=== PATIENT | female | born 1975 | race Caucasian/White ===

== ENCOUNTER 2018-08-17 07:27 | Observation (INO) | payer BC ==
[~2018-08-17] VITALS: Ht 170.2 cm; Wt 97.1 kg
[~2018-08-17 07:27] MED LIST: ADDERALL 20 MG20 MG PO; BENADRYL25 M1; BETAMETHASONE; HYDROXYZINE HCL25 MG PO; METHYLPREDNISOLO4 M1
[2018-08-17] MEDS ORDERED: KETOROLAC TROMETHAMINE 30 MG/ML VIAL IV STA (07:54)
[2018-08-17 08:11] LABS: NITRITE,URINE POSITIVE (NEGATIVE); PREGNANCY TEST, URINE NEGATIVE (NEGATIVE)
[2018-08-17 08:12] LABS: BASOPHILS % 0.4 % (0.0-1.0); EOSINOPHILS # (AUTO) 0.1 (0.0-0.4); EOSINOPHILS % 1.2 % (0.0-6.0); HEMATOCRIT 37.4 % (34.2-44.1); HEMOGLOBIN 12.5 g/dL (12.0-16.0); LYMPHOCYTES # (AUTO) 2.9 (1.0-3.2); MEAN CORPUSCULAR HEMOGLOBIN 29.1 pg (28-32); MEAN CORPUSCULAR HGB CONC 33.4 g/dL (31-35); MONOCYTES # (AUTO) 0.4 (0.2-0.8); MONOCYTES % 5.5 % (4.4-11.3); NEUTROPHILS # (AUTO) 3.5 (2.1-6.9); NEUTROPHILS % 50.6 % (38.7-80.0); PLATELET COUNT 384 x10e3/uL (140-360); RED CELL DISTRIBUTION WIDTH 13.7 % (11.7-14.4)
[2018-08-17 08:12] LABS: BILIRUBIN,URINE NEGATIVE (NEGATIVE); CLARITY,URINE CLOUDY (CLEAR); COLOR,URINE YELLOW (YELLOW); KETONES,URINE NEGATIVE (NEGATIVE); LEUKOCYTE ESTERASE ,URINE NEGATIVE (NEGATIVE); PROTEIN,URINE DIPSTICK NEGATIVE (NEGATIVE); URINE UROBILINOGEN 0.2 mg/dL (0.2 - 1)
[2018-08-17] MEDS ORDERED: MORPHINE SULFATE 2 MG/ML SYR IV STA (08:20)
[2018-08-17 08:28] LABS: ALANINE AMINOTRANSFERASE 11 IU/L (0-55); ALBUMIN 3.9 g/dL (3.5-5.0); ALKALINE PHOSPHATASE 63 IU/L (40-150); ANION GAP 14.7 mmol/L (8-16); BLOOD UREA NITROGEN 16 mg/dL (7-26); BUN/CREATININE RATIO 18 (6-25); CALCIUM 9.6 mg/dL (8.4-10.2); CARBON DIOXIDE 24 mmol/L (22-29); CHLORIDE 105 mmol/L (98-107); CREATININE, SERUM 0.91 mg/dL (0.57-1.11); EST GLOMERULAR FILTRATION RATE > 60 ML/MIN (60-); GLUCOSE 92 mg/dL (74-118); POTASSIUM 3.7 mmol/L (3.5-5.1); SODIUM 140 mmol/L (136-145)
--- NOTE | 2018-08-17 08:28 | Diagnostic Imaging Report ---
PROCEDURE: CHEST SINGLE (PORTABLE) COMPARISON: None. INDICATIONS: RIGHT SIDE BACK PAIN FINDINGS: LUNGS: No consolidations or edema. PLEURA: No effusions or pneumothorax. HEART \T\ MEDIASTINUM: The heart is within normal size-limits. BONES \T\ SOFT TISSUES: No acute findings. CONCLUSION: No acute thoracic abnormality. Jesus Hines D.O. Dictated by: Jesus Hines D.O. on 08/17/2018 at 8:35 Electronically approved by: Jesus Hines D.O. on 08/17/2018 at 8:35
[2018-08-17 08:46] LABS: BACTERIA,URINE MODERATE /HPF; RBC,URINE 0-5 /HPF (0-5)
[2018-08-17 08:47] LABS: EPITHELIAL CELLS,URINE MODERATE /LPF; MUCUS,URINE FEW (RARE)
[2018-08-17] MEDS ORDERED: HYDROMORPHONE 1MG/1ML INJ IV STA ×2 (08:57→09:58)
[2018-08-17] MEDS ORDERED: HYDROMORPHONE 2MG/ML 2 MG/ML ML IV NR (09:15)
--- NOTE | 2018-08-17 10:08 | Diagnostic Imaging Report ---
PROCEDURE: CT scan of the chest WITH intravenous contrast, using PE protocol. TECHNIQUE: The chest was scanned utilizing a multidetector helical scanner from the lung apex through the level of the adrenal glands after the IV administration of 74 cc of Isovue 370. Coronal and sagittal multiplanar reformations were obtained. Low-dose parameters were utilized. DLP: 539.54 mGy-cm COMPARISON: None. INDICATIONS: CHEST PAIN FINDINGS: Lines/tubes: None. Lungs and Airways: The lungs and airways are normal with no focal abnormality demonstrated. No evidence of pulmonary emboli. Pleura: The pleural spaces are clear. Heart and mediastinum: The thyroid gland is normal. No significant mediastinal, hilar or axillary lymphadenopathy is seen. The heart and pericardium are within normal limits. Soft tissues: Normal. Abdomen: Limited contrast-enhanced views of the upper abdomen show no abnormality within the visualized liver, spleen, pancreas, or kidneys. The adrenal glands are normal. Bones: The visualized bony thorax is within normal limits. IMPRESSION: Normal chest CT. Jesus Hines D.O. Dictated by: Jesus Hines D.O. on 08/17/2018 at 10:15 Electronically approved by: Jesus Hines D.O. on 08/17/2018 at 10:15
[2018-08-17] MEDS: HYDROMORPHONE 2MG/ML 2 MG/ML ML IV NR ×2 (10:12→10:31)
[2018-08-17] MEDS ORDERED: DIPHENHYDRAMINE HCL INJ 50 MG/ML VIAL ONE (10:25)
[2018-08-17] MEDS ORDERED: HYDROMORPHONE 1MG/1ML INJ IV PRN (10:30)
[2018-08-17] MEDS ORDERED: DIPHENHYDRAMINE HCL INJ 50 MG/ML VIAL IV ONE ×2 (10:30→13:30)
[2018-08-17] MEDS ORDERED: HYDROMORPHONE 2MG/ML 2 MG/ML ML IV PRN (10:30)
[2018-08-17] MEDS: CEFTRIAXONE SOD 1 GM VIAL IV SCH ×2 (10:38→21:44)
[2018-08-17] MEDS ORDERED: ADDERALL 15 MG15 MG PO (10:51)
[2018-08-17] MEDS ORDERED: BIRTH CONTROL (10:52)
[2018-08-17] MEDS ORDERED: SODIUM CHLORIDE 0.9% 50ML 50 ML ONE (11:35)
[2018-08-17] MEDS ORDERED: IOPAMIDOL 370 MG/ML 200 ML INFUS..BTL INJ ONE (11:36)
[2018-08-17 12:24] LABS: CREATINE KINASE MB 0.5 ng/mL (0-5.0)
[2018-08-17] MEDS ORDERED: DIPHENHYDRAMINE HCL INJ 50 MG/ML VIAL IV PRN (12:30)
--- NOTE | 2018-08-17 12:36 | Diagnostic Imaging Report ---
Exams: Cervical and thoracic spine MRIs without IV contrast History: Back pain Comparison studies: None Technique: Cervical spine: Sagittal T1, T2 and IR, axial T2 and axial gradient echo. Thoracic spine: Sagittal, axial coronal T2, sagittal STIR and T1. Intravenous contrast: None Findings: Alignment: Normal cervical lordosis and thoracic kyphosis. Cervicomedullary junction: No abnormalities. Patent foramen magnum. Soft tissues: No T2 hyperintense inflammatory changes. Spinal cord: Normal in size and signal from the foramen magnum to the tip of the conus which terminates at the L1. Vertebrae: No fractures, infection or neoplasm. No marrow edema. Cervical degenerative changes: Loss of STIR disc signal from C2 to C7. C2-C3: Patent canal and foramina. C3-C4: Patent canal and foramina. C4-C5: Mild left uncovertebral arthrosis without significant foraminal stenosis. Patent canal and right foramen. C5-C6: Disc bulge with possible ossified posterior longitudinal ligament indents the thecal sac but does not result in significant canal stenosis. Mild left foraminal stenosis due to uncovertebral arthrosis. C6-C7: Mild canal stenosis due to a disc ossify complex and possible ossified posterior longitudinal ligament. Moderate left foraminal stenosis due to disc osteophyte complex and uncovertebral arthrosis. C7-T1: Patent canal and foramina. Thoracic degenerative changes: No canal stenosis, foraminal stenosis or nerve root impingement. T2-T3: Small right central disc protrusion. T5-T6: Small right central disc protrusion. C6-7: Small left central disc protrusion. Incidental findings: 5 mm T2/T1 hyperintense left thyroid lobe nodule or cyst. Subcentimeter T2 hyperintense left superior pole renal cyst. IMPRESSION: Cervical spine: 1. No cord signal abnormalities. 2. Degenerative changes, greatest at C5-C6 and C6-C7 with mild canal stenosis and moderate left foraminal stenosis at C6-C7. Thoracic spine: 1. No cord signal abnormalities. 2. Few scattered small disc protrusions. 3. No significant canal stenosis. Patent canal and foramina. Signed by: Dr. Jamarcus Remy M.D. on 08/17/2018 12:32 PM
[2018-08-17 12:40] VITALS: BP 136/72
[2018-08-17 13:01] VITALS: BP 136/72
[2018-08-17] MEDS: MORPHINE SULFATE INJ 4 MG/ML INJ IV PRN ×2 (16:26→23:03)
[2018-08-17 16:31] VITALS: BP 125/71
[2018-08-17 18:09] VITALS: BP 125/71
[2018-08-17 20:00] VITALS: BP 127/75
[2018-08-17] MEDS: KETOROLAC TROMETHAMINE 30 MG/ML VIAL IV PRN (20:16)
[2018-08-17] MEDS: METHYLPREDNISOLONE SOD SUCC 125 MG/2ML VIAL IV SCH (21:44)
--- NOTE | 2018-08-17 21:51 | History and Physical ---
CHIEF COMPLAINT: A 43-year-old female with a history of thoracic pain in the right interscapular area. HISTORY OF PRESENTING ILLNESS: This is Ms. Miley Ferrari who is a 43-year-old female with no prior medical history except for attention deficit disorder. Nardil was used and failed until about 3 days prior to admission, the patient started to have pain right subscapular, interscapular, and infrascapular area. Patient's pain was described as 7/10, go into 10/10 intensity today and the patient came in and was admitted for pain control. PAST MEDICAL HISTORY AND SURGICAL HISTORY: Includes , kidney stones, history of meningitis, and history of ADD. SOCIAL HISTORY: No ETOH. No IV drug abuse. No additional history. REVIEW OF SYSTEMS: Negative for chest pain. No shortness of breath except for pain on inspiration. No nausea, vomiting, or diarrhea. No constipation. No rectal bleeding. No hematochezia. No hematemesis. PHYSICAL EXAMINATION GENERAL: Patient is alert and oriented x3, in moderate distress. Pain has been controlled with morphine at this time. HEENT: Normocephalic, atraumatic. Pupils are reactive to light and accommodation. CVS: S1 and S2 normal. Regular rate and rhythm. ABDOMEN: Nontender and nondistended. LUNGS: Clear to auscultation bilaterally. BACK: Normal to inspection. No CVA tenderness. SKIN: Normal. No rashes. Normal skin turgor. EXTREMITIES: Normal range of motion. LABORATORY VALUES: EKG was normal. Chest x-ray was normal. CT of the lung was normal. CBC was normal. Chemistries were normal too. D-dimer is 130. UA was normal. ASSESSMENT 1. Transthoracic pain, probably questionable shingles or paraesthesia secondary to possible viral syndrome. 2. Pleurisy. 3. Spinal stenosis. MRI was done of the patient's C5-C6 that showed moderate amount of spinal stenosis and accounting for the symptoms that were on the left side. We will continue to monitor the patient. Start on some steroids 80 mg q.6 hours for pain control. Morphine has been given. Further recommendation per clinical course. We will continue to monitor the patient and put the patient on some fluids too. Job#: [id number] INGRID
[2018-08-18] VITALS (8 sets, daily range): BP systolic 110–154; BP diastolic 64–78
[2018-08-18] MEDS: KETOROLAC TROMETHAMINE 30 MG/ML VIAL IV PRN ×3 (04:44→17:24)
[2018-08-18] MEDS: METHYLPREDNISOLONE SOD SUCC 125 MG/2ML VIAL IV SCH ×3 (06:02→21:45)
[2018-08-18] MEDS: MORPHINE SULFATE INJ 4 MG/ML INJ IV PRN ×3 (07:01→20:02)
[2018-08-18] MEDS: ONDANSETRON HCL INJ 2 MG/ML VIAL IV PRN ×3 (07:01→20:01)
[2018-08-18] MEDS: GABAPENTIN 300 MG CAP PO SCH ×3 (08:41→21:45)
[2018-08-18] MEDS: CEFTRIAXONE SOD 1 GM VIAL IV SCH ×2 (08:41→21:45)
[2018-08-18] MEDS: HYDROCODONE/APAP 5MG-325MG TAB PO SCH ×2 (12:22→18:40)
--- NOTE | 2018-08-18 15:44 | Diagnostic Imaging Report ---
EXAM: CT Abdomen and Pelvis WITH contrast INDICATION: Pain COMPARISON: None. TECHNIQUE: Abdomen and Pelvis was scanned utilizing a multidetector helical scanner after administration of IV contrast. Coronal and sagittal reformations were obtained. IV CONTRAST: 100 mL Isovue-370 COMPLICATIONS: None RADIATION DOSE: Total DLP:745 mGy*cm Estimated effective dose: (DLP x 0.015 x size factor) mSv CTDIvol has been reviewed. It is below the limits set by the Radiation Protocol Committee (RPC). Appropriate CT dose reduction techniques were utilized. FINDINGS: Abdomen: Lung Bases: No acute findings. Solid Organs: Liver, adrenals, kidneys, spleen, and pancreas unremarkable. Upper GI Tract: Stomach full of ingested material, limiting evaluation. No small bowel obstructive changes. Vascularity: No aortic aneurysm or dissection. Lymph Nodes: No suspicious adenopathy by size criteria. Other: No free fluid or free air. Pelvis: Bladder: Largely decompressed, limiting evaluation. Other: Uterus/adnexa suboptimally evaluated CT. Grossly unremarkable for age. Colon: No acute colonic findings. Appendix not inflamed. Bones: Presumed bone island right femoral head. Otherwise, no acute findings. IMPRESSION: 1. No acute findings within the abdomen or pelvis. Signed by: Dr. Mason Silva MD on 08/18/2018 3:41 PM
[2018-08-18] MEDS ORDERED: SODIUM CHLORIDE 0.9% 50ML 50 ML ONE (17:56)
[2018-08-18] MEDS ORDERED: IOPAMIDOL 370 MG/ML 200 ML INFUS..BTL INJ ONE (17:56)
[2018-08-19] MEDS: HYDROCODONE/APAP 5MG-325MG TAB PO SCH ×2 (00:34→06:12)
[2018-08-19 01:20] VITALS: BP 102/50
[2018-08-19] MEDS: ONDANSETRON HCL INJ 2 MG/ML VIAL IV PRN (03:37)
[2018-08-19] MEDS: MORPHINE SULFATE INJ 4 MG/ML INJ IV PRN ×2 (03:38→09:53)
[2018-08-19 03:40] VITALS: BP 109/62
[2018-08-19] MEDS: METHYLPREDNISOLONE SOD SUCC 125 MG/2ML VIAL IV SCH (06:12)
[2018-08-19 08:24] VITALS: BP 141/75
[2018-08-19 08:25] VITALS: BP 141/75
[2018-08-19] MEDS: KETOROLAC TROMETHAMINE 30 MG/ML VIAL IV PRN (08:35)
[2018-08-19] MEDS: CEFTRIAXONE SOD 1 GM VIAL IV SCH (08:35)
[2018-08-19] MEDS: GABAPENTIN 300 MG CAP PO SCH (08:35)
== END 2018-08-19 10:27 | disposition home or self-care (01) ==
LOC: ER 07:27 → ERHOLD 10:45 → IMCU 12:36
PROVIDERS: ADMIT Family Medicine; ATTEND Family Medicine
DX: M54.6 Pain in thoracic spine (principal); M48.02 Spinal stenosis, cervical region; N39.0 Urinary tract infection, site not specified; F98.8 Other specified behavioral and emotional disorders with onset usually occurring in childhood and adolescence; Z87.442 Personal history of urinary calculi; B96.20 Unspecified Escherichia coli [E. coli] as the cause of diseases classified elsewhere; R07.89 Other chest pain; R10.9 Unspecified abdominal pain
CPT/HCPCS: 36415; 71045; 71260; 72141; 72146; 74177; 80053; 81001; 81025; 82550; 82553; 84484; 85025; 85379; 87086; 87186; 93005; 99284; G0378 ×3; J0696 ×3; J1170; J1200 ×2; J1885 ×3; J2270 ×4; J2405 ×3; J2930 ×3; Q9967 ×2

== ENCOUNTER 2018-08-21 10:21 | Emergency (ER) | payer BC ==
[~2018-08-21] VITALS: Ht 170.2 cm; Wt 97.1 kg
[~2018-08-21 10:21] MED LIST changes: +ADDERALL 15 MG15 MG PO; +BIRTH CONTROL
[2018-08-21] MEDS ORDERED: SODIUM CHLORIDE 0.9% 1000ML 1,000 ML IV STA (10:34)
[2018-08-21] MEDS ORDERED: KETOROLAC TROMETHAMINE 30 MG/ML VIAL IV STA (10:34)
[2018-08-21] MEDS ORDERED: MORPHINE SULFATE INJ 4 MG/ML INJ IV STA (10:34)
[2018-08-21] MEDS ORDERED: ONDANSETRON HCL INJ 2 MG/ML VIAL IV STA (10:34)
[2018-08-21] MEDS ORDERED: LORAZEPAM INJ 2 MG/ML VIAL IV ONE (10:45)
[2018-08-21 11:28] LABS: AMPHETAMINES SCREEN,URINE NEGATIVE (NEGATIVE); BENZODIAZEPINES SCREEN,URINE NEGATIVE (NEGATIVE); PHENCYCLIDINE SCREEN,URINE NEGATIVE (NEGATIVE)
[2018-08-21 11:33] LABS: BILIRUBIN,URINE NEGATIVE (NEGATIVE); CLARITY,URINE CLEAR (CLEAR); COLOR,URINE YELLOW (YELLOW); KETONES,URINE NEGATIVE (NEGATIVE); LEUKOCYTE ESTERASE ,URINE NEGATIVE (NEGATIVE); NITRITE,URINE NEGATIVE (NEGATIVE); PROTEIN,URINE DIPSTICK NEGATIVE (NEGATIVE); URINE UROBILINOGEN 0.2 mg/dL (0.2 - 1)
[2018-08-21 11:39] LABS: EPITHELIAL CELLS,URINE MODERATE /LPF
[2018-08-21 11:58] LABS: BASOPHILS % 0.4 % (0.0-1.0); EOSINOPHILS % 0.1 % (0.0-6.0); HEMATOCRIT 37.9 % (34.2-44.1); LYMPHOCYTES # (AUTO) 4.1 (1.0-3.2); LYMPHOCYTES % 37.6 % (18.0-39.1); MEAN CORPUSCULAR HEMOGLOBIN 30.1 pg (28-32); MEAN CORPUSCULAR HGB CONC 34.3 g/dL (31-35); MEAN CORPUSCULAR VOLUME 87.7 fL (81-99); MONOCYTES # (AUTO) 0.7 (0.2-0.8); MONOCYTES % 6.9 % (4.4-11.3); NEUTROPHILS # (AUTO) 5.8 (2.1-6.9); NEUTROPHILS % 53.4 % (38.7-80.0); PLATELET COUNT 324 x10e3/uL (140-360); RED BLOOD COUNT 4.32 x10e6/uL (3.6-5.1); RED CELL DISTRIBUTION WIDTH 14.1 % (11.7-14.4)
[2018-08-21 13:45] LABS: ALANINE AMINOTRANSFERASE 18 IU/L (0-55); ALBUMIN/GLOBULIN RATIO 1.2 (0.8-2.0); ALKALINE PHOSPHATASE 29 IU/L (40-150); ANION GAP 9.5 mmol/L (8-16); BLOOD UREA NITROGEN 11 mg/dL (7-26); BUN/CREATININE RATIO 22 (6-25); CARBON DIOXIDE 15 mmol/L (22-29); CHLORIDE 121 mmol/L (98-107); CREATINE KINASE 19 IU/L (29-168); EST GLOMERULAR FILTRATION RATE > 60 ML/MIN (60-); LIPASE 135 U/L (8-78); SODIUM 143 mmol/L (136-145)
[2018-08-21 13:47] LABS: CALCIUM 5.5 mg/dL (8.4-10.2); GLUCOSE 51 mg/dL (74-118); POTASSIUM 2.5 mmol/L (3.5-5.1)
[2018-08-21 14:56] LABS: ALANINE AMINOTRANSFERASE 31 IU/L (0-55); ALBUMIN 3.4 g/dL (3.5-5.0); ALBUMIN/GLOBULIN RATIO 1.1 (0.8-2.0); ALKALINE PHOSPHATASE 49 IU/L (40-150); ANION GAP 15.9 mmol/L (8-16); BLOOD UREA NITROGEN 15 mg/dL (7-26); BUN/CREATININE RATIO 20 (6-25); CALCIUM 8.8 mg/dL (8.4-10.2); CARBON DIOXIDE 22 mmol/L (22-29); CHLORIDE 107 mmol/L (98-107); CREATININE, SERUM 0.76 mg/dL (0.57-1.11); EST GLOMERULAR FILTRATION RATE > 60 ML/MIN (60-); GLUCOSE 93 mg/dL (74-118); POTASSIUM 3.9 mmol/L (3.5-5.1); SODIUM 141 mmol/L (136-145)
[2018-08-21 16:34] VITALS: BP 137/85
== END 2018-08-21 17:00 | disposition home or self-care (01) ==
LOC: ER 10:21
DX: M54.6 Pain in thoracic spine (principal); F41.9 Anxiety disorder, unspecified
CPT/HCPCS: 36415; 80053; 80307; 81001; 82550; 82553; 83690; 84484; 85025; 87086; 93005; 99283; J1885; J2060; J2270; J2405; J7030

== ENCOUNTER 2019-07-30 10:19 | Observation (INO) | payer BC ==
[~2019-07-30] VITALS: Ht 170.2 cm; Wt 100.4 kg
--- OUTSIDE RECORDS SUMMARY | 2019-07-30 10:22 | XMS REPORT | Continuity of Care Document ---
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 Name Role Phone [employer] [facility] Medicine in Practice Unavailable Unavailable Problems Problem Status Onset Date Classification Date Reported Comments Source Immunization due 02/02/2019 Diagnosis 02/02/2019 [facility] Acute pharyngitis 02/02/2019 Diagnosis 02/02/2019 [facility] Influenza with non-respiratory manifestation 02/02/2019 Diagnosis 02/02/2019 [facility] Body mass index 30+ - obesity 01/31/2018 Problem 02/02/2019 [facility] Pain in throat 01/31/2018 Problem 01/31/2018 [facility] Viral upper respiratory tract infection 01/31/2018 Problem 01/31/2018 [facility] Influenza-like symptoms 01/31/2018 Problem 01/31/2018 [facility] Acute bronchitis 09/18/2017 Diagnosis 09/18/2017 [facility] History of asthma 09/18/2017 Diagnosis 09/18/2017 [facility] Allergic reaction Active Problem 08/22/2018 [facility] Medications Medication Details Route Status Patient Instructions Ordering Provider Order Date Source Betametrasone , Active 08/17/2018 [facility] Diphenhydramine Hcl (Benadryl) 25 Mg Capsule, Active 08/17/2018 [facility] Hydroxyzine Hcl 25 Mg Tablet, 25 Mg Oral Daily Active 08/17/2018 [facility] Methylprednisolone 4 Mg Tab.ds.pk, Active 08/17/2018 [facility] Albuterol 0.83 MG/ML Inhalant Solution albuterol sulfate 2.5 mg/3 mL (0.083 %) solution for nebulization INHALE 1 VIAL PO VIA NEBULIZER QID PRN Active [facility] Brompheniramine Maleate 0.4 MG/ML / Dextromethorphan Hydrobromide 2 MG/ML / Pseudoephedrine Hydrochloride 6 MG/ML Oral Solution [Bromfed DM] Bromfed DM 2 mg-30 mg-10 mg/5 mL oral syrup Take 10 mL every 4 hours by oral route as needed. Active [facility] 24 HR Amphetamine aspartate 5 MG / Amphetamine Sulfate 5 MG / Dextroamphetamine saccharate 5 MG / Dextroamphetamine Sulfate 5 MG Extended Release Oral Capsule dextroamphetamine-amphetamine ER 20 mg 24hr capsule,extend release TK ONE C PO QAM Active [facility] prednisone 10 mg tablets in a dose pack prednisone 10 mg tablets in a dose pack TAKE PO DIRECTED WITH FOOD Active [facility] 200 ACTUAT Albuterol 0.09 MG/ACTUAT Metered Dose Inhaler [ProAir] ProAir HFA 90 mcg/actuation aerosol inhaler TK 2 PUFFS PO Q 4 H PRN OR 30 MINUTES PRIOR TO EXERCISE Active [facility] Amphetamine aspartate 7.5 MG / Amphetamine Sulfate 7.5 MG / Dextroamphetamine saccharate 7.5 MG / Dextroamphetamine Sulfate 7.5 MG Oral Tablet dextroamphetamine- amphetamine 30 mg tablet TK 1 T PO D AT NOON UTD Active [facility] Lidocaine Hydrochloride 20 MG/ML Mucous Membrane Topical Solution Lidocaine Viscous 2 % mucosal solution Take 10 mL every 3 hours by oral route as needed. Active [facility] 200 ACTUAT Albuterol 0.09 MG/ACTUAT Metered Dose Inhaler albuterol sulfate HFA 90 mcg/actuation aerosol inhaler Inhale 2 puffs every 4 hours by inhalation route as needed. Active [facility] Amoxicillin 500 MG / Clavulanate 125 MG Oral Tablet amoxicillin 500 mg-potassium clavulanate 125 mg tablet Active [facility] Amphetamine aspartate 5 MG / Amphetamine Sulfate 5 MG / Dextroamphetamine saccharate 5 MG / Dextroamphetamine Sulfate 5 MG Oral Tablet dextroamphetamine- amphetamine 20 mg tablet Active [facility] 24 HR Amphetamine aspartate 6.25 MG / Amphetamine Sulfate 6.25 MG / Dextroamphetamine saccharate 6.25 MG / Dextroamphetamine Sulfate 6.25 MG Extended Release Oral Capsule dextroamphetamine-amphetamine ER 25 mg 24hr capsule,extend release Active [facility] Medrol (Sabino) 4 mg tablets in a dose pack Medrol (Sabino) 4 mg tablets in a dose pack take as directed Active [facility] Necon (28) 0.5 mg/0.75 mg/1 mg-35 mcg tablet Necon () 0.5 mg/0.75 mg/1 mg-35 mcg tablet TK 1 T PO QD Active [facility] Sumatriptan 50 MG Oral Tablet sumatriptan 50 mg tablet TK 1 TABLET PO Q 2 H UP TO 3 DOSES Active [facility] TriNessa (28) 0.18 mg(7)/0.215 mg(7)/0.25 mg(7)-35 mcg tablet TriNessa (28) 0.18 mg(7)/0.215 mg(7)/0.25 mg(7)-35 mcg tablet Active [facility] Codeine Phosphate 2 MG/ML / Guaifenesin 20 MG/ML / Pseudoephedrine Hydrochloride 6 MG/ML Oral Solution Virtussin DAC 30 mg-10 mg-100 mg/5 mL syrup Active [facility] Acetaminophen 300 MG / Codeine Phosphate 30 MG Oral Tablet acetaminophen 300 mg-codeine 30 mg tablet TK 1 T PO TID PRN FOR PAIN Active [facility] Albuterol 0.83 MG/ML Inhalation Solution albuterol sulfate 2.5 mg/3 mL (0.083 %) solution for nebulization INHALE 1 VIAL PO VIA NEBULIZER QID PRN Active [facility] Cyclobenzaprine hydrochloride 5 MG Oral Tablet cyclobenzaprine 5 mg tablet TK 1 T PO TID PRN FOR MUSCLE SPASMS Active [facility] 24 HR Amphetamine aspartate 7.5 MG / Amphetamine Sulfate 7.5 MG / Dextroamphetamine saccharate 7.5 MG / Dextroamphetamine Sulfate 7.5 MG Extended Release Oral Capsule dextroamphetamine-amphetamine ER 30 mg 24hr capsule,extend release TK ONE C PO QAM Active [facility] Diazepam 5 MG Oral Tablet diazepam 5 mg tablet TK 1 T PO 30 MINUTES PRIOR TO PROCEDURE PRN UTD. BRING OTHER T TO OFFICE UTD Active [facility] Fluticasone propionate 0.05 MG/ACTUAT Metered Dose Nasal Pony fluticasone propionate 50 mcg/actuation nasal spray,suspension Pony 2 sprays every day by intranasal route for 14 days. Active [facility] gabapentin 300 MG Oral Capsule gabapentin 300 mg capsule TK 1 C PO BID Active [facility] Acetaminophen 325 MG / Hydrocodone Bitartrate 5 MG Oral Tablet hydrocodone 5 mg-acetaminophen 325 mg tablet TK 1 T PO Q 12 H NEEDED. MAX 2 PER DAY PO 15 DAYS Active [facility] Ibuprofen 800 MG Oral Tablet ibuprofen 800 mg tablet TK 1 T PO TID PRN Active [facility] Levofloxacin 500 MG Oral Tablet levofloxacin 500 mg tablet TK 1 T PO QD Active [facility] Lidocaine 0.05 MG/MG Medicated Patch lidocaine 5 % topical patch Active [facility] Lorazepam 1 MG Oral Tablet lorazepam 1 mg tablet TK 1 T PO Q 8 H PRN Active [facility] pregabalin 50 MG Oral Capsule [Lyrica] Lyrica 50 mg capsule TK ONE C PO BID Active [facility] pregabalin 75 MG Oral Capsule [Lyrica] Lyrica 75 mg capsule TK ONE C PO TID Active [facility] Ondansetron 4 MG Disintegrating Oral Tablet ondansetron 4 mg disintegrating tablet DIS ONE T PO Q 6 H PRN NV Active [facility] Prednisone 20 MG Oral Tablet prednisone 20 mg tablet TK 1 T PO BID Active [facility] Prednisone 5 MG Oral Tablet prednisone 5 mg tablets in a dose pack UTD Active [facility] Oseltamivir 75 MG Oral Capsule [Tamiflu] Tamiflu 75 mg capsule Take 1 capsule twice a day by oral route for 5 days. Active [facility] Amphet Asp/Amphet/D-Amphet (Adderall 15 Mg Tablet) 15 Mg Tablet Qevening Active [facility] Amphet Asp/Amphet/D-Amphet (Adderall 20 Mg Tablet) 20 Mg Tablet Every Morning Active [facility] Control Active [facility] Allergies, Adverse Reactions, Alerts Substance Category Reaction Severity Reaction type Status Date Reported Comments Source Hydromorphone ITCH Mild Allergy to Substance Active 08/21/2018 [facility] Immunizations No Data Provided for This Section Results Order Name Results Value Reference Range Date Interpretation Comments Source RESULT negative 02/01/2019 [facility] SWAB LOCATION Left and Right tonsillar pillars 02/01/2019 [facility] Influenza A positive 02/01/2019 [facility] Influenza B negative 02/01/2019 [facility] Estimated glomerular filtration rate (GFR) determination Estimated glomerular filtration rate (GFR) determination >60 60 08/21/2018 [facility] Glucose measurement Glucose measurement 93 74 - 118 08/21/2018 [facility] Plasma globulin measurement (mass/volume) Plasma globulin measurement (mass/volume) 3.2 2.3 - 3.5 08/21/2018 [facility] Serum or plasma alanine aminotransferase measurement (enzymatic activity/volume) Serum or plasma alanine aminotransferase measurement (enzymatic activity/volume) 31 0 - 55 08/21/2018 [facility] Serum or plasma albumin measurement (mass/volume) Serum or plasma albumin measurement (mass/volume) 3.4 3.5 - 5.0 08/21/2018 [facility] Serum or plasma albumin/globulin mass ratio Serum or plasma albumin/globulin mass ratio 1.1 0.8 - 2.0 08/21/2018 [facility] Serum or plasma alkaline phosphatase measurement (enzymatic activity/volume) Serum or plasma alkaline phosphatase measurement (enzymatic activity/volume) 49 40 - 150 08/21/2018 [facility] Serum or plasma anion gap Serum or plasma anion gap 15.9 8 - 16 08/21/2018 [facility] Serum or plasma calcium measurement (mass/volume) Serum or plasma calcium measurement (mass/volume) 8.8 8.4 - 10.2 08/21/2018 [facility] Serum or plasma carbon dioxide, total measurement (moles/volume) Serum or plasma carbon dioxide, total measurement (moles/volume) 22 22 - 29 08/21/2018 [facility] Serum or plasma chloride measurement (moles/volume) Serum or plasma chloride measurement (moles/volume) 107 98 - 107 08/21/2018 [facility] Serum or plasma creatinine measurement (mass/volume) Serum or plasma creatinine measurement (mass/volume) 0.76 0.57 - 1.11 08/21/2018 [facility] Serum or plasma potassium measurement (moles/volume) Serum or plasma potassium measurement (moles/volume) 3.9 3.5 - 5.1 08/21/2018 [facility] Serum or plasma protein measurement (mass/volume) Serum or plasma protein measurement (mass/volume) 6.6 6.5 - 8.1 08/21/2018 [facility] Serum or plasma sodium measurement (moles/volume) Serum or plasma sodium measurement (moles/volume) 141 136 - 145 08/21/2018 [facility] Serum or plasma total bilirubin measurement (mass/volume) Serum or plasma total bilirubin measurement (mass/volume) 0.2 0.2 - 1.2 08/21/2018 [facility] Serum or plasma urea nitrogen measurement (mass/volume) Serum or plasma urea nitrogen measurement (mass/volume) 15 7 - 26 08/21/2018 [facility] Serum or plasma urea nitrogen/creatinine mass ratio Serum or plasma urea nitrogen/creatinine mass ratio 20 6 - 25 08/21/2018 [facility] Aspartate Amino Transf (AST/SGOT) 14 5 - 34 08/21/2018 [facility] Serum or plasma creatine kinase MB measurement (mass/volume) Serum or plasma creatine kinase MB measurement (mass/volume) 0.20 0 - 5.0 08/21/2018 [facility] Serum or plasma creatine kinase measurement (enzymatic activity/volume) Serum or plasma creatine kinase measurement (enzymatic activity/volume) 19 29 - 168 08/21/2018 [facility] Serum or plasma lipase measurement (enzymatic activity/volume) Serum or plasma lipase measurement (enzymatic activity/volume) 135 8 - 78 08/21/2018 [facility] Troponin I measurement by highly sensitive enzyme immunoassay Troponin I measurement by highly sensitive enzyme immunoassay <0.001 0 - 0.300 08/21/2018 [facility] Automated urine sediment leukocyte count by microscopy (number/high power field) Automated urine sediment leukocyte count by microscopy (number/high power field) NONE 0 - 5 08/21/2018 [facility] Bacteria detection in urine sediment by light microscopy Bacteria detection in urine sediment by light microscopy NONE NONE 08/21/2018 [facility] Barbiturates screen, urine Barbiturates screen, urine NEGATIVE NEGATIVE 08/21/2018 [facility] Epithelial cells detection in urine sediment by light microscopy Epithelial cells detection in urine sediment by light microscopy MODERATE NONE 08/21/2018 [facility] Erythrocytes detection in urine sediment by light microscopy Erythrocytes detection in urine sediment by light microscopy NONE 0 - 5 08/21/2018 [facility] Specific gravity of Urine by Test strip Specific gravity of Urine by Test strip 1.015 1.010 - 1.025 08/21/2018 [facility] Urine amphetamines detection by screen method > 1000 ng/mL Urine amphetamines detection by screen method > 1000 ng/mL NEGATIVE NEGATIVE 08/21/2018 [facility] Urine benzodiazepines detection by screening method Urine benzodiazepines detection by screening method NEGATIVE NEGATIVE 08/21/2018 [facility] Urine cannabinoids detection by screening method Urine cannabinoids detection by screening method NEGATIVE NEGATIVE 08/21/2018 [facility] Urine clarity Urine clarity CLEAR CLEAR 08/21/2018 [facility] Urine cocaine measurement (mass/volume) Urine cocaine measurement (mass/volume) NEGATIVE NEGATIVE 08/21/2018 [facility] Urine color determination Urine color determination YELLOW YELLOW 08/21/2018 [facility] Urine erythrocytes detection Urine erythrocytes detection NEGATIVE NEGATIVE 08/21/2018 [facility] Urine glucose detection Urine glucose detection NEGATIVE NEGATIVE 08/21/2018 [facility] Urine ketones detection by automated test strip Urine ketones detection by automated test strip NEGATIVE NEGATIVE 08/21/2018 [facility] Urine leukocyte esterase detection by dipstick Urine leukocyte esterase detection by dipstick NEGATIVE NEGATIVE 08/21/2018 [facility] Urine methadone screen Urine methadone screen NEGATIVE NEGATIVE 08/21/2018 [facility] Urine nitrite detection Urine nitrite detection NEGATIVE NEGATIVE 08/21/2018 [facility] Urine opiates screening test Urine opiates screening test POSITIVE NEGATIVE 08/21/2018 [facility] Urine pH measurement by automated test strip Urine pH measurement by automated test strip 7 5 - 7 08/21/2018 [facility] Urine phencyclidine detection by screening method Urine phencyclidine detection by screening method NEGATIVE NEGATIVE 08/21/2018 [facility] Urine protein measurement by test strip (mass/volume) Urine protein measurement by test strip (mass/volume) NEGATIVE NEGATIVE 08/21/2018 [facility] Urine total bilirubin measurement (mass/volume) Urine total bilirubin measurement (mass/volume) NEGATIVE NEGATIVE 08/21/2018 [facility] Urine urobilinogen measurement by test strip (mass/volume) Urine urobilinogen measurement by test strip (mass/volume) 0.2 0.2 - 1 08/21/2018 [facility] Urine Methamphetamines Screen NEGATIVE NEGATIVE 08/21/2018 [facility] Automated blood basophil count (count/volume) Automated blood basophil count (count/volume) 0.0 0.0 - 0.1 08/21/2018 [facility] Automated blood basophil count as percentage of total leukocytes Automated blood basophil count as percentage of total leukocytes 0.4 0.0 - 1.0 08/21/2018 [facility] Automated blood eosinophil count Automated blood eosinophil count 0.0 0.0 - 0.4 08/21/2018 [facility] Automated blood eosinophil count as percentage of total leukocytes Automated blood eosinophil count as percentage of total leukocytes 0.1 0.0 - 6.0 08/21/2018 [facility] Automated blood hematocrit (volume fraction) Automated blood hematocrit (volume fraction) 37.9 34.2 - 44.1 08/21/2018 [facility] Automated blood lymphocyte count as percentage ot total leukocytes Automated blood lymphocyte count as percentage ot total leukocytes 37.6 18.0 - 39.1 08/21/2018 [facility] Automated blood monocyte count as percentage of total leukocytes Automated blood monocyte count as percentage of total leukocytes 6.9 4.4 - 11.3 08/21/2018 [facility] Automated blood neutrophil count Automated blood neutrophil count 5.8 2.1 - 6.9 08/21/2018 [facility] Automated blood platelet count (count/volume) Automated blood platelet count (count/volume) 324 140 - 360 08/21/2018 [facility] Automated blood segmented neutrophil count as percentage of total leukocytes Automated blood segmented neutrophil count as percentage of total leukocytes 53.4 38.7 - 80.0 08/21/2018 [facility] Automated erythrocyte mean corpuscular hemoglobin (mass per erythrocyte) Automated erythrocyte mean corpuscular hemoglobin (mass per erythrocyte) 30.1 28 - 32 08/21/2018 [facility] Automated erythrocyte mean corpuscular hemoglobin concentration measurement (mass/volume) Automated erythrocyte mean corpuscular hemoglobin concentration measurement (mass/volume) 34.3 31 - 35 08/21/2018 [facility] Automated erythrocyte mean corpuscular volume Automated erythrocyte mean corpuscular volume 87.7 81 - 99 08/21/2018 [facility] Blood erythrocytes automated count (number/volume) Blood erythrocytes automated count (number/volume) 4.32 3.6 - 5.1 08/21/2018 [facility] Blood hemoglobin measurement (moles/volume) Blood hemoglobin measurement (moles/volume) 13.0 12.0 - 16.0 08/21/2018 [facility] Blood leukocytes automated count (number/volume) Blood leukocytes automated count (number/volume) 10.80 4.8 - 10.8 08/21/2018 [facility] Blood lymphocytes count (number/volume) Blood lymphocytes count (number/volume) 4.1 1.0 - 3.2 08/21/2018 [facility] Blood monocytes automated count (number/volume) Blood monocytes automated count (number/volume) 0.7 0.2 - 0.8 08/21/2018 [facility] Red Cell Distribution Width 14.1 11.7 - 14.4 08/21/2018 [facility] IM GRANULOCYTES % 1.6 0.0 - 1.0 08/21/2018 [facility] Absolute Immature Granulocyte (auto 0.17 0 - 0.1 08/21/2018 [facility] Fibrin D-dimer DDU measurement in platelet poor plasma (mass/volume) Fibrin D-dimer DDU measurement in platelet poor plasma (mass/volume) 130 0 - 400 08/17/2018 [facility] Mucus detection in urine sediment by light microscopy Mucus detection in urine sediment by light microscopy FEW RARE 08/17/2018 [facility] Urine human chorionic gonadotropin (hCG) detection Urine human chorionic gonadotropin (hCG) detection NEGATIVE NEGATIVE 08/17/2018 [facility] Influenza A negative 01/31/2018 [facility] Influenza B negative 01/31/2018 [facility] RESULT negative 01/31/2018 [facility] SWAB LOCATION Left and Right tonsillar pillars 01/31/2018 [facility] Bacterial urine culture Bacterial urine culture Urine Culture [facility] Pathology Reports No Data Provided for This Section Diagnostic Reports No Data Provided for This Section Consultation Notes No Data Provided for This Section Discharge Summaries No Data Provided for This Section History and Physicals No Data Provided for This Section Vital Signs Vital Sign Value Date Comments Source Diastolic (mm Hg) 60 02/01/2019 [facility] Height 67 02/01/2019 [facility] Systolic (mm Hg) 120 02/01/2019 [facility] Weight 213 02/01/2019 [facility] Diastolic (mm Hg) 572 01/31/2018 [facility] Height 67 01/31/2018 [facility] Systolic (mm Hg) 117 01/31/2018 [facility] Weight 192 01/31/2018 [facility] Diastolic (mm Hg) 84 09/18/2017 [facility] Height 67 09/18/2017 [facility] Systolic (mm Hg) 130 09/18/2017 [facility] Weight 185 09/18/2017 [facility] Diastolic (mm Hg) 90 10/28/2016 [facility] Height 67 10/28/2016 [facility] Systolic (mm Hg) 132 10/28/2016 [facility] Weight 184 10/28/2016 [facility] Encounters Location Location Details Encounter Type Encounter Number Reason For Visit Attending Provider ADM Date DC Date Status Source [place] - [facility] - [id number] PriceC: [address] [place] [address], Ph. [phone] [id number] Shelton Clark 10/28/2016 [facility] [place] [facility] - [id number] Aden-C: [address] [place] [address], Ph. [id number] Bree Fuller 09/18/2017 [facility] [place] [facility] - [id number] Fuller, MUFFLE OPERATOR-C: [address] [place] [address], Ph. [id number] Bree Germany 01/31/2018 [facility] Discharged Inpatient (obs) [id number] BRISEIDA BRAND MD 08/17/2018 08/19/2018 [facility] Departed Emergency Room [id number] MARY RASHEED MD 08/21/2018 08/21/2018 [facility] - [facility] - [id number] Jayna Navarro MUFFLE OPERATOR-C: [address] [place] [address], Ph. [phone] [id number] Jayna Navarro 02/01/2019 [facility] Procedures Procedure Code Date Perfomer Comments Source Computed tomography of abdomen and pelvis with contrast [id number] 08/18/2018 [facility] Computed tomography of chest with contrast [id number] 08/17/2018 [facility] Magnetic resonance imaging of thoracic spine without contrast [id number] 08/17/2018 [facility] Magnetic resonance imaging of cervical spine without contrast [id number] 08/17/2018 [facility] Assessment and Plan No Data Provided for This Section Plan of Care Plan of Care Date Source Discharge Date 08/21/18 5:00pm Disposition HOME, SELF-CARE Condition at Discharge Stable Instructions/Education Provided Generalized Anxiety Disorder Back Pain Forms Provided Work/School Excuse Prescriptions See Medication Section Referrals FRANCIA ACUÑA MD Address: [address] [place] [address] [address] [place] [address] DESEAN BELLE MD Address: [address] [place] [address] Additional Instructions/Education 1. follow up with orthopedic doctor in 1-2 dyas without fail 2. return to ed as needed 3. take prescriptions as prescribed 08/21/2018 [facility] Social History Social History Date Source Smoking Status Start Date Stop Date Never Smoker 08/21/2018 [facility] Smoking Status Never Smoker 10/28/2016 [facility] Family History No Data Provided for This Section Advance Directives Order Name Results Value Date Source Advance Directives Advance Directives Directive Response Recorded Date/Time Does the patient have an advance directive? Yes 08/21/18 11:08am If yes, is advance directive on file with [facility]? No 08/17/18 12:30pm If not on file with [facility] will patient provide a copy? No 08/17/18 12:30pm Do you have a Directive to Physician? Yes 08/21/18 11:08am Do you have a Medical Power of It Software Engineer? Yes 08/21/18 11:08am Do you have an out of hospital Do Not Resuscitate Order? Yes 08/21/18 11:08am Do you have any special needs we should be aware of? No 08/21/18 11:08am Do you have a support person here with you today? Yes 08/21/18 11:08am Did patient receive Notice of Privacy Practices? Yes 08/21/18 11:08am Did patient receive patient rights and responsibilities? Yes 08/21/18 11:08am 08/21/2018 [facility] Functional Status No Data Provided for This Section
--- OUTSIDE RECORDS SUMMARY | 2019-07-30 10:23 | XMS REPORT | Encounter Summary ---
Author Organization Unknown Address [address] [place] [id number] Phone [phone] Reason for Visit Medical Complaint Instructions 1. Influenza with non-respiratory manifestation Tamiflu 75 mg capsule influenza (flu): care instructions rapid flu (A+B) Bromfed DM 2 mg-30 mg-10 mg/5 mL oral syrup fluticasone propionate 50 mcg/actuation nasal spray,suspension 2. Acute pharyngitis rapid strep group A, throat 3. Body mass index 30+ - obesity A healthy lifestyle: care instructions 4. Immunization due Discussion Note: None recorded. Plan of Care Patient Instructions Influenza (flu) is a viral illness. Treatment is focused on symptomatic relief, including antipyretics, decongestants, and expectorants. Oral antiviral decreases the duration and severity of symptoms. Further management include increased fluids, rest, good hand washing, humidify air to prevent drying of respiratory secretions. Minimize contact with others. Generally contagious starting the day before symptoms appear until 5-10 days after symptoms begin. Seek care (PCP, Urgent Care, ER) or [facility] if symptoms worsen, persists >10 days, or if gradual improvement does not occur over 3-5 days. Reminders Provider Appointments Medical 02/02/2019 1:00PM [id number], TE[facility] Lab Rapid Flu (A+B) 02/01/2019 [facility] Rapid Strep Group a, Throat 02/01/2019 [facility] Referral None recorded. Procedures None recorded. Surgeries None recorded. Imaging None recorded. Medications Name Start Date acetaminophen 300 mg-codeine 30 mg tablet TK 1 T PO TID PRN FOR PAIN albuterol sulfate 2.5 mg/3 mL (0.083 %) solution for nebulization INHALE 1 VIAL PO VIA NEBULIZER QID PRN Bromfed DM 2 mg-30 mg-10 mg/5 mL oral syrup Take 10 mL every 4 hours by oral route as needed. cyclobenzaprine 5 mg tablet TK 1 T PO TID PRN FOR MUSCLE SPASMS dextroamphetamine-amphetamine 30 mg tablet TK 1 T PO D AT NOON UTD dextroamphetamine-amphetamine ER 20 mg 24hr capsule,extend release TK ONE C PO QAM dextroamphetamine-amphetamine ER 30 mg 24hr capsule,extend release TK ONE C PO QAM diazepam 5 mg tablet TK 1 T PO 30 MINUTES PRIOR TO PROCEDURE PRN UTD. BRING OTHER T TO OFFICE UTD fluticasone propionate 50 mcg/actuation nasal spray,suspension [place] 2 sprays every day by intranasal route for 14 days. gabapentin 300 mg capsule TK 1 C PO BID hydrocodone 5 mg-acetaminophen 325 mg tablet TK 1 T PO Q 12 H NEEDED. MAX 2 PER DAY PO 15 DAYS ibuprofen 800 mg tablet TK 1 T PO TID PRN levofloxacin 500 mg tablet TK 1 T PO QD lidocaine 5 % topical patch Lidocaine Viscous 2 % mucosal solution Take 10 mL every 3 hours by oral route as needed. lorazepam 1 mg tablet TK 1 T PO Q 8 H PRN Lyrica 50 mg capsule TK ONE C PO BID Lyrica 75 mg capsule TK ONE C PO TID Necon (28) 0.5 mg/0.75 mg/1 mg-35 mcg tablet TK 1 T PO QD ondansetron 4 mg disintegrating tablet DIS ONE T PO Q 6 H PRN [place] prednisone 20 mg tablet TK 1 T PO BID prednisone 5 mg tablets in a dose pack UTD ProAir HFA 90 mcg/actuation aerosol inhaler TK 2 PUFFS PO Q 4 H PRN OR 30 MINUTES PRIOR TO EXERCISE Tamiflu 75 mg capsule Take 1 capsule twice a day by oral route for 5 days. Medications Administered None recorded. Vitals Height Weight BMI Blood Pressure 5 ft 7 in 213 lbs 33.4 kg/m2 120/60 mm[Hg] Lab Results Date Name Specimen Result Interpretation Description Value Range Status Address Rapid Strep Group a, Throat Result negative [facility]: [address] [place] [address] Swab Location Left and Right tonsillar pillars [facility]: [address] [place] [address] Rapid Flu (A+B) Influenza a positive [facility]: [address] [place] [address] Influenza B negative [facility]: [address] [place] [address] Allergies Code Code System Name Reaction Severity Status Onset NKDA Problems Name Status Onset Date Source Body Mass Index 30+ - Obesity Active 01/31/2018 Procedures Date Name Performed by Information not available Vaccine List None recorded. Social History Smoking Status Never Smoker Past Encounters 02/01/2019 Influenza with Non-respiratory Manifestation; Acute Pharyngitis; Body Mass Index 30+ - Obesity; Immunization Due Jayna Navarro, [employer]-[facility]: [address] [facility], [place] [address], Ph. History of Present Illness [id number] Reported By: Patient HPI: Location: head/sinuses, throat. Quality: sore throat, nasal/sinus congestion, dry cough. Duration: ; 5 hours. Onset/Timing: gradual. Context: no foreign travel, non-smoker, sick contact. Modifying factors: OTC medication. Associated Symptoms: no sputum production, no shortness of breath, no wheezing, no change in number of pillows needed to sleep at night, no sweats, no significant weight gain, no significant weight loss, no morning cough, no vomiting, no diarrhea, no rash, no nausea, no fever, fatigue, sore throat, fever, muscle aches, headache Review of Systems:ROS as noted in the HPI Review of Systems Basic Reported By: Patient Physical Exam Adult Basic, Adult Female Complete Reported By: Patient Constitutional: General Appearance: healthy-appearing, well-nourished, well-developed. Level of Distress: acutely ill. Ambulation: ambulating normally Psychiatric: Mental Status: active and alert. Orientation: to time, to place, to person Eyes: Lids and Conjunctivae: non-injected, no discharge, no pallor [id number]: Ears: no lesions on external ear, no outer ear tenderness, EACs clear, TM opacified. Hearing: no hearing loss. Nose: no lesions on external nose, nares patent, no septal deviation, nasal passages clear, no sinus tenderness, nasal discharge--rhinorrhea, post nasal drip. Lips, Teeth, and Gums: no mouth or lip ulcers, no bleeding gums, normal dentition. Oropharynx: moist mucous membranes, no exudates, tonsils not enlarged, erythema Lungs: Respiratory effort: no dyspnea, no tachypnea, no use of accessory muscles, no intercostal retractions. Auscultation: breath sounds normal Cardiovascular: Heart Auscultation: RRR, no murmurs
[2019-07-30] MEDS ORDERED: MORPHINE SULFATE INJ 4 MG/ML INJ 1ML IV STA ×2 (10:45→14:24)
[2019-07-30] MEDS ORDERED: PIPER-TAZ 3.375 GM 50 ML IV STA ×2 (10:45→14:23)
[2019-07-30] MEDS ORDERED: ONDANSETRON HCL INJ 2MG/ML 2ML 2 MG/ML VIAL IV STA ×2 (10:45→14:25)
[2019-07-30] MEDS ORDERED: SODIUM CHLORIDE 0.9% 1000ML 1,000 ML IV STA ×2 (10:45)
[2019-07-30 10:50] LABS: BILIRUBIN,URINE NEGATIVE (NEGATIVE); CLARITY,URINE CLEAR (CLEAR); COLOR,URINE YELLOW (YELLOW); KETONES,URINE NEGATIVE (NEGATIVE); LEUKOCYTE ESTERASE ,URINE NEGATIVE (NEGATIVE); NITRITE,URINE NEGATIVE (NEGATIVE); PROTEIN,URINE DIPSTICK NEGATIVE (NEGATIVE); URINE UROBILINOGEN 0.2 mg/dL (0.2 - 1)
[2019-07-30 10:54] LABS: BASOPHILS % 0.6 % (0.0-1.0); EOSINOPHILS # (AUTO) 0.2 (0.0-0.4); EOSINOPHILS % 2.8 % (0.0-6.0); HEMOGLOBIN 13.1 g/dL (12.0-16.0); LYMPHOCYTES # (AUTO) 2.5 (1.0-3.2); LYMPHOCYTES % 46.4 % (18.0-39.1); MEAN CORPUSCULAR HEMOGLOBIN 28.6 pg (28-32); MEAN CORPUSCULAR HGB CONC 33.6 g/dL (31-35); MEAN CORPUSCULAR VOLUME 85.2 fL (81-99); MONOCYTES # (AUTO) 0.4 (0.2-0.8); MONOCYTES % 7.7 % (4.4-11.3); NEUTROPHILS # (AUTO) 2.2 (2.1-6.9); NEUTROPHILS % 41.8 % (38.7-80.0); PLATELET COUNT 392 x10e3/uL (140-360); RED BLOOD COUNT 4.58 x10e6/uL (3.6-5.1)
[2019-07-30 11:01] LABS: INR 0.81; PROTHROMBIN TIME 11.7 seconds (11.9-14.5)
[2019-07-30 11:02] LABS: PARTIAL THROMBOPLASTIN TIME 30.5 seconds (23.8-35.5)
[2019-07-30 11:16] LABS: ALANINE AMINOTRANSFERASE 21 IU/L (0-55); ALBUMIN 4.2 g/dL (3.5-5.0); ALBUMIN/GLOBULIN RATIO 1.1 (0.8-2.0); ALKALINE PHOSPHATASE 93 IU/L (40-150); ANION GAP 14.2 mmol/L (8-16); BACTERIA,URINE RARE /HPF; BLOOD UREA NITROGEN 14 mg/dL (7-26); BUN/CREATININE RATIO 18 (6-25); CALCIUM 9.9 mg/dL (8.4-10.2); CARBON DIOXIDE 26 mmol/L (22-29); CHLORIDE 103 mmol/L (98-107); CREATINE KINASE 63 IU/L (29-168); CREATININE, SERUM 0.78 mg/dL (0.57-1.11); EPITHELIAL CELLS,URINE FEW /LPF; EST GLOMERULAR FILTRATION RATE > 60 ML/MIN (60-); GLUCOSE 83 mg/dL (74-118); POTASSIUM 4.2 mmol/L (3.5-5.1); RBC,URINE 0-5 /HPF (0-5); SODIUM 139 mmol/L (136-145); WBC,URINE (MAN) 0-5 /HPF (0-5)
[2019-07-30 11:37] LABS: AMYLASE 53 U/L (25-125); LIPASE 18 U/L (8-78)
--- NOTE | 2019-07-30 12:25 | Diagnostic Imaging Report ---
Right upper quadrant abdominal ultrasound, 07/30/2019. History: Abdominal pain. Comparison: None available. Discussion: Transverse and longitudinal images of the right upper quadrant of the abdomen were obtained demonstrating a liver of normal size and echogenicity measuring 14.5 cm in length. There is no evidence of a focal hepatic mass. The portal vein is patent with hepatopetal flow and is within normal limits measuring 8 mm in diameter. The biliary tree is within normal limits with the common bile duct measuring 3 mm in diameter. The gallbladder contains a small amount of nonshadowing echogenic material without evidence of shadowing stones, wall thickening or pericholecystic fluid. The sonographic Palomino's sign was negative. The right kidney is normal in size and echogenicity without evidence of hydronephrosis, stones, or mass and measures 10.6 cm in length. The pancreatic <body and tail> are visualized and are normal in appearance. The abdominal aorta is within normal limits. There is no evidence of free fluid. IMPRESSION: Minimal gallbladder sludge without evidence of cholelithiasis or cholecystitis. Otherwise unremarkable exam. Signed by: Jet Martino on 07/30/2019 12:22 PM
--- NOTE | 2019-07-30 12:28 | Diagnostic Imaging Report ---
Chest, 1 view, 07/30/2019. History: Shortness of breath. Comparison: None available. Findings: The cardiomediastinal silhouette and pulmonary vasculature are within normal limits for a portable exam. There is no focal consolidation or pleural effusion. There are no acute osseous or soft tissue abnormalities. Impression: No acute cardiopulmonary abnormality. Signed by: Jet Martino on 07/30/2019 12:24 PM
--- NOTE | 2019-07-30 12:36 | Diagnostic Imaging Report ---
CT of the abdomen and pelvis, without contrast, 07/30/2019. History: Right flank pain, history of kidney stones. Comparison: 08/18/2018. Technique: Multidetector CT scanning of the abdomen and pelvis was performed from the level of the lung bases to the inferior pubic rami without intravenous or oral contrast. Coronal and sagittal multiplanar reformations were obtained. RADIATION DOSE: Total DLP: 775 mGy*cm Dose modulation, iterative reconstruction, and/or weight based adjustment of the mA/kV was utilized to reduce the radiation dose to as low as reasonably achievable. Discussion: Examination is limited without contrast. Lung bases: No abnormality. Abdomen: The liver, gallbladder, biliary tree, spleen, pancreas, adrenal glands, and kidneys are unremarkable. There is no evidence of nephrolithiasis, hydronephrosis, or perinephric fat stranding. The ureters are nondilated bilaterally. The abdominal aorta is within normal limits. There is no bowel dilatation. The appendix is visualized and is normal. There is no evidence of adenopathy or free fluid. Pelvis: The bladder, uterus, and adnexa are unremarkable. There is no evidence of free fluid or adenopathy. Bones and soft tissues: No abnormality. IMPRESSION: Unremarkable noncontrast exam. No evidence of cholelithiasis, nephrolithiasis, or appendicitis. Signed by: Jet Martino on 07/30/2019 12:32 PM
[2019-07-30] MEDS ORDERED: SODIUM CHLORIDE 0.9% 1000ML 1,000 ML IV ONE (14:45)
[2019-07-30] MEDS ORDERED: SODIUM CHLORIDE 0.9% 1000ML 1,000 ML IV SCH (15:00)
--- NOTE | 2019-07-30 15:06 | NUR ---
DR Merry ARNOLD AT PT BEDSIDE
--- OUTSIDE RECORDS SUMMARY | 2019-07-30 15:13 | XMS REPORT | Continuity of Care Document ---
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 Name Role Phone [employer] Unavailable Unavailable Problems Problem Status Onset Date [...] 09/18/2017 [facility] Allergic reaction Active Problem 08/22/2018 [facility] Medications Medication Details Route Status Patient Instructions Ordering Provider Order Date Source Betametrasone , Active 08/17/2018 [facility] Diphenhydramine Hcl (Benadryl) 25 Mg Capsule, Active 08/17/2018 [facility] Hydroxyzine Hcl 25 Mg Tablet, 25 Mg Oral Daily Active 08/17/2018 [facility] Methylprednisolone 4 Mg Tab.ds.pk, Active 08/17/2018 [facility] Albuterol 0.83 MG/ML Inhalant Solution albuterol sulfate [...] Fluticasone propionate 0.05 MG/ACTUAT Metered Dose Nasal [place] fluticasone propionate 50 mcg/actuation nasal spray,suspension [place] 2 sprays every day by intranasal route [...] Mg Tablet) 15 Mg Tablet Qevening Active [facility] Amphet Asp/Amphet/D-Amphet (Adderall 20 Mg Tablet) 20 Mg Tablet Every Morning Active [facility] Control Active [facility] Allergies, Adverse Reactions, Alerts Substance Category Reaction Severity Reaction type Status Date Reported Comments Source Hydromorphone ITCH Mild Allergy to Substance Active 08/21/2018 [facility] Immunizations No Data Provided for This Section Results Order Name Results Value Reference Range Date Interpretation Comments Source RESULT negative 02/01/2019 [facility] SWAB LOCATION Left and Right tonsillar pillars 02/01/2019 [facility] Influenza A positive 02/01/2019 [facility] Influenza B negative 02/01/2019 [facility] Estimated glomerular filtration rate (GFR) determination Estimated glomerular filtration rate (GFR) determination >60 60 08/21/2018 [facility] Glucose measurement Glucose measurement 93 74 - 118 08/21/2018 [facility] Plasma globulin measurement (mass/volume) Plasma globulin measurement (mass/volume) 3.2 2.3 - 3.5 08/21/2018 [facility] Serum or plasma alanine aminotransferase measurement (enzymatic activity/volume) Serum or plasma alanine aminotransferase measurement (enzymatic activity/volume) 31 0 - 55 08/21/2018 [facility] Serum or plasma albumin measurement (mass/volume) Serum or plasma albumin measurement (mass/volume) 3.4 3.5 - 5.0 08/21/2018 [facility] Serum or plasma albumin/globulin mass ratio Serum or plasma albumin/globulin mass ratio 1.1 0.8 - 2.0 08/21/2018 [facility] Serum or plasma alkaline phosphatase measurement (enzymatic activity/volume) Serum or plasma alkaline phosphatase measurement (enzymatic activity/volume) 49 40 - 150 08/21/2018 [facility] Serum or plasma anion gap Serum or plasma anion gap 15.9 8 - 16 08/21/2018 [facility] Serum or plasma calcium measurement (mass/volume) Serum or plasma calcium measurement (mass/volume) 8.8 8.4 - 10.2 08/21/2018 [facility] Serum or plasma carbon dioxide, total measurement (moles/volume) Serum or plasma carbon dioxide, total measurement (moles/volume) 22 22 - 29 08/21/2018 [facility] Serum or plasma chloride measurement (moles/volume) Serum or plasma chloride measurement (moles/volume) 107 98 - 107 08/21/2018 [facility] Serum or plasma creatinine measurement (mass/volume) Serum or plasma creatinine measurement (mass/volume) 0.76 0.57 - 1.11 08/21/2018 [facility] Serum or plasma potassium measurement (moles/volume) Serum or plasma potassium measurement (moles/volume) 3.9 3.5 - 5.1 08/21/2018 [facility] Serum or plasma protein measurement (mass/volume) Serum or plasma protein measurement (mass/volume) 6.6 6.5 - 8.1 08/21/2018 [facility] Serum or plasma sodium measurement (moles/volume) Serum or plasma sodium measurement (moles/volume) 141 136 - 145 08/21/2018 [facility] Serum or plasma total bilirubin measurement (mass/volume) Serum or plasma total bilirubin measurement (mass/volume) 0.2 0.2 - 1.2 08/21/2018 [facility] Serum or plasma urea nitrogen measurement (mass/volume) Serum or plasma urea nitrogen measurement (mass/volume) 15 7 - 26 08/21/2018 [facility] Serum or plasma urea nitrogen/creatinine mass ratio Serum or plasma urea nitrogen/creatinine mass ratio 20 6 - 25 08/21/2018 [facility] Aspartate Amino Transf (AST/SGOT) 14 5 - 34 08/21/2018 [facility] Serum or plasma creatine kinase MB measurement (mass/volume) Serum or plasma creatine kinase MB measurement (mass/volume) 0.20 0 - 5.0 08/21/2018 [facility] Serum or plasma creatine kinase measurement (enzymatic activity/volume) Serum or plasma creatine kinase measurement (enzymatic activity/volume) 19 29 - 168 08/21/2018 [facility] Serum or plasma lipase measurement (enzymatic activity/volume) Serum or plasma lipase measurement (enzymatic activity/volume) 135 8 - 78 08/21/2018 [facility] Troponin I measurement by highly sensitive enzyme immunoassay Troponin I measurement by highly sensitive enzyme immunoassay <0.001 0 - 0.300 08/21/2018 [facility] Automated urine sediment leukocyte count by microscopy (number/high power field) Automated urine sediment leukocyte count by microscopy (number/high power field) NONE 0 - 5 08/21/2018 [facility] Bacteria detection in urine sediment by light microscopy Bacteria detection in urine sediment by light microscopy NONE NONE 08/21/2018 [facility] Barbiturates screen, urine Barbiturates screen, urine NEGATIVE NEGATIVE 08/21/2018 [facility] Epithelial cells detection in urine sediment by light microscopy Epithelial cells detection in urine sediment by light microscopy MODERATE NONE 08/21/2018 [facility] Erythrocytes detection in urine sediment by light microscopy Erythrocytes detection in urine sediment by light microscopy NONE 0 - 5 08/21/2018 [facility] Specific gravity of Urine by Test strip Specific gravity of Urine by Test strip 1.015 1.010 - 1.025 08/21/2018 [facility] Urine amphetamines detection by screen method > 1000 ng/mL Urine amphetamines detection by screen method > 1000 ng/mL NEGATIVE NEGATIVE 08/21/2018 [facility] Urine benzodiazepines detection by screening method Urine benzodiazepines detection by screening method NEGATIVE NEGATIVE 08/21/2018 [facility] Urine cannabinoids detection by screening method Urine cannabinoids detection by screening method NEGATIVE NEGATIVE 08/21/2018 [facility] Urine clarity Urine clarity CLEAR CLEAR 08/21/2018 [facility] Urine cocaine measurement (mass/volume) Urine cocaine measurement (mass/volume) NEGATIVE NEGATIVE 08/21/2018 [facility] Urine color determination Urine color determination YELLOW YELLOW 08/21/2018 [facility] Urine erythrocytes detection Urine erythrocytes detection NEGATIVE NEGATIVE 08/21/2018 [facility] Urine glucose detection Urine glucose detection NEGATIVE NEGATIVE 08/21/2018 [facility] Urine ketones detection by automated test strip Urine ketones detection by automated test strip NEGATIVE NEGATIVE 08/21/2018 [facility] Urine leukocyte esterase detection by dipstick Urine leukocyte esterase detection by dipstick NEGATIVE NEGATIVE 08/21/2018 [facility] Urine methadone screen Urine methadone screen NEGATIVE NEGATIVE 08/21/2018 [facility] Urine nitrite detection Urine nitrite detection NEGATIVE NEGATIVE 08/21/2018 [facility] Urine opiates screening test Urine opiates screening test POSITIVE NEGATIVE 08/21/2018 [facility] Urine pH measurement by automated test strip Urine pH measurement by automated test strip 7 5 - 7 08/21/2018 [facility] Urine phencyclidine detection by screening method Urine phencyclidine detection by screening method NEGATIVE NEGATIVE 08/21/2018 [facility] Urine protein measurement by test strip (mass/volume) Urine protein measurement by test strip (mass/volume) NEGATIVE NEGATIVE 08/21/2018 [facility] Urine total bilirubin measurement (mass/volume) Urine total bilirubin measurement (mass/volume) NEGATIVE NEGATIVE 08/21/2018 [facility] Urine urobilinogen measurement by test strip (mass/volume) Urine urobilinogen measurement by test strip (mass/volume) 0.2 0.2 - 1 08/21/2018 [facility] Urine Methamphetamines Screen NEGATIVE NEGATIVE 08/21/2018 [facility] Automated blood basophil count (count/volume) Automated blood basophil count (count/volume) 0.0 0.0 - 0.1 08/21/2018 [facility] Automated blood basophil count as percentage of total leukocytes Automated blood basophil count as percentage of total leukocytes 0.4 0.0 - 1.0 08/21/2018 [facility] Automated blood eosinophil count Automated blood eosinophil count 0.0 0.0 - 0.4 08/21/2018 [facility] Automated blood eosinophil count as percentage of total leukocytes Automated blood eosinophil count as percentage of total leukocytes 0.1 0.0 - 6.0 08/21/2018 [facility] Automated blood hematocrit (volume fraction) Automated blood hematocrit (volume fraction) 37.9 34.2 - 44.1 08/21/2018 [facility] Automated blood lymphocyte count as percentage ot total leukocytes Automated blood lymphocyte count as percentage ot total leukocytes 37.6 18.0 - 39.1 08/21/2018 [facility] Automated blood monocyte count as percentage of total leukocytes Automated blood monocyte count as percentage of total leukocytes 6.9 4.4 - 11.3 08/21/2018 [facility] Automated blood neutrophil count Automated blood neutrophil count 5.8 2.1 - 6.9 08/21/2018 [facility] Automated blood platelet count (count/volume) Automated blood platelet count (count/volume) 324 140 - 360 08/21/2018 [facility] Automated blood segmented neutrophil count as percentage of total leukocytes Automated blood segmented neutrophil count as percentage of total leukocytes 53.4 38.7 - 80.0 08/21/2018 [facility] Automated erythrocyte mean corpuscular hemoglobin (mass per erythrocyte) Automated erythrocyte mean corpuscular hemoglobin (mass per erythrocyte) 30.1 28 - 32 08/21/2018 [facility] Automated erythrocyte mean corpuscular hemoglobin concentration measurement (mass/volume) Automated erythrocyte mean corpuscular hemoglobin concentration measurement (mass/volume) 34.3 31 - 35 08/21/2018 [facility] Automated erythrocyte mean corpuscular volume Automated erythrocyte mean corpuscular volume 87.7 81 - 99 08/21/2018 [facility] Blood erythrocytes automated count (number/volume) Blood erythrocytes automated count (number/volume) 4.32 3.6 - 5.1 08/21/2018 [facility] Blood hemoglobin measurement (moles/volume) Blood hemoglobin measurement (moles/volume) 13.0 12.0 - 16.0 08/21/2018 [facility] Blood leukocytes automated count (number/volume) Blood leukocytes automated count (number/volume) 10.80 4.8 - 10.8 08/21/2018 [facility] Blood lymphocytes count (number/volume) Blood lymphocytes count (number/volume) 4.1 1.0 - 3.2 08/21/2018 [facility] Blood monocytes automated count (number/volume) Blood monocytes automated count (number/volume) 0.7 0.2 - 0.8 08/21/2018 [facility] Red Cell Distribution Width 14.1 11.7 - 14.4 08/21/2018 [facility] IM GRANULOCYTES % 1.6 0.0 - 1.0 08/21/2018 [facility] Absolute Immature Granulocyte (auto 0.17 0 - 0.1 08/21/2018 [facility] Fibrin D-dimer DDU measurement in platelet poor plasma (mass/volume) Fibrin D-dimer DDU measurement in platelet poor plasma (mass/volume) 130 0 - 400 08/17/2018 [facility] Mucus detection in urine sediment by light microscopy Mucus detection in urine sediment by light microscopy FEW RARE 08/17/2018 [facility] Urine human chorionic gonadotropin (hCG) detection Urine human chorionic gonadotropin (hCG) detection NEGATIVE NEGATIVE 08/17/2018 [facility] Influenza A negative 01/31/2018 [facility] Influenza B negative 01/31/2018 [facility] RESULT negative 01/31/2018 [facility] SWAB LOCATION Left and Right tonsillar pillars 01/31/2018 [facility] Bacterial urine culture Bacterial urine culture Urine Culture [facility] Pathology Reports No Data Provided for This [...] Date Status Source [place] - [facility] - [id number] PriceC: [address] [place] [address], Ph. [id number] Shelton Clark 10/28/2016 [facility] [place] - [facility] - [id number] Aden-C: [address] [place] [address], Ph. [id number] Bree Fuller 09/18/2017 [facility] [place] - [facility] - [id number] Fuller, BACTERIOLOGY RESEARCH ASSISTANT-C: [address] [place] [address], Ph. [id number] Bree Germany 01/31/2018 [facility] Discharged Inpatient (obs) [id number] BRISEIDA BRAND MD 08/17/2018 08/19/2018 [facility] Departed Emergency Room [id number] MARY RASHEED MD 08/21/2018 08/21/2018 [facility] - [facility] - [id number] Jayna Navarro BACTERIOLOGY RESEARCH ASSISTANT-C: [address] [place] [address], Ph. [phone] [id number] Jayna Navarro 02/01/2019 [facility] Procedures Procedure Code Date Perfomer Comments Source Computed tomography of abdomen and pelvis with contrast [id number] 08/18/2018 [facility] Computed tomography of chest with contrast [id number] 08/17/2018 [facility] Magnetic resonance imaging of thoracic spine without contrast [id number] 08/17/2018 [facility] Magnetic resonance imaging of cervical spine without contrast [id number] 08/17/2018 [facility] Assessment and Plan No Data Provided for This Section Plan of Care Plan of Care Date Source Discharge Date 08/21/18 5:00pm Disposition HOME, SELF-CARE Condition at Discharge Stable Instructions/Education Provided Generalized Anxiety Disorder Back Pain Forms Provided Work/School Excuse Prescriptions See Medication Section Referrals FRANCIA ACUÑA MD Address: [address] [place] [address] [address] [place] [address] DESEAN BELLE MD Address: [address] [place] [id number] Additional Instructions/Education 1. follow up with orthopedic doctor in 1-2 dyas without fail 2. return to ed as needed 3. take prescriptions as prescribed 08/21/2018 [facility] Social History Social History Date Source Smoking Status Start Date Stop Date Never Smoker 08/21/2018 [facility] Smoking Status Never Smoker 10/28/2016 [facility] Family History No Data Provided for This Section Advance Directives Order Name Results Value Date Source Advance Directives Advance Directives Directive Response Recorded Date/Time Does the patient have an advance directive? Yes 08/21/18 11:08am If yes, is advance directive on file with [facility]? No 08/17/18 12:30pm If not on file with [facility] will patient provide a copy? No 08/17/18 12:30pm Do you have a Directive to Physician? Yes 08/21/18 11:08am Do you have a Medical Power of Associate Trainer? Yes 08/21/18 11:08am Do you have an [...] rights and responsibilities? Yes 08/21/18 11:08am 08/21/2018 [facility] Functional Status No Data Provided for This Section
--- NOTE | 2019-07-30 16:25 | Consultation ---
DATE OF CONSULTATION: 07/30/2019 REASON FOR CONSULTATION: Abdominal pain. HISTORY OF PRESENT ILLNESS: The patient is a 43-year-old female admitted complaining of pain for over a week. She was initially seen by her primary care physician about a week ago complaining of status post right-sided back and flank pain. She was treated for UTI with nitrofurantoin and Cipro. The patient now presents to the emergency room complaining of persistent and more severe pain. The patient has a history of chronic back pain, having had several visits in the past. The patient's past medical history significant for ADD. She has had two C-sections and hand surgery for tendon repair . The patient in the emergency room had a CT scan of the abdomen that revealed no acute process. She also had an ultrasound of the gallbladder that revealed no acute cholecystitis. There was some sludge, but no stones or biliary dilatation. Admission laboratories, CBC including liver chemistries are normal. PHYSICAL EXAMINATION: GENERAL: Reveals a 43-year-old female, in no acute distress. She is hungry and wants to eat. HEAD, EYES, EARS, NOSE, and THROAT: Unremarkable. ABDOMEN: Soft and nontender. ASSESSMENT: 1. Back-sided abdominal pain that radiates to the front with some nausea. No evidence of acute abdomen. Chronic back pain. 2. At this point, there is no need for surgical intervention. This patient is to have a HIDA scan to rule out the gallbladder as the source of her pain. She should also will be evaluated by GI . PLAN: The patient to be admitted, keep her n.p.o., obtain HIDA scan and GI evaluation. Further surgical recommendations will depend upon what the HIDA scan show as well as the GI evaluation. Thank you very much for the courtesy of this consultation. MD DYLON Worthington/MORENO /[id number] BON
[2019-07-30 18:03] VITALS: BP 127/64
[2019-07-30] MEDS: SODIUM CHLORIDE 0.9% 1000ML 1,000 ML IV SCH (18:25)
[2019-07-30] MEDS: FAMOTIDINE 20 MG/2 ML VIAL IV SCH (18:28)
[2019-07-30 18:29] VITALS: BP 127/64
[2019-07-30 18:32] VITALS: BP 127/64
--- NOTE | 2019-07-30 19:20 | NUR ---
called and left a message to dr Simpson, making sure the MD aware that the patient is admitted under his care.
[2019-07-30 20:08] VITALS: BP 114/57
--- NOTE | 2019-07-30 21:45 | NUR ---
called and spoke with dr Merry Prado, patient asking if she can eat. the MD stated ok to have clear liquid diet until midnight then patient to be NPO again. nurse may call dr Merry Prado if the [place] scan result comes back within an hour otherwise the MD will see it in the morning.
[2019-07-30] MEDS: MORPHINE SULFATE 2 MG/ML SYR 1ML IV PRN (22:17)
[2019-07-30] MEDS: PIPER-TAZ 3.375 GM / NS 50ML IV SCH (22:17)
--- NOTE | 2019-07-30 23:28 | Diagnostic Imaging Report ---
Hepatobiliary Scan with Gallbladder Ejection Fraction Clinical information: Right upper quadrant pain Comparison: Abdominal CT 07/30/2019 Technique: Following intravenous administration of 7 millicuries of Tc-99m mebrofenin, dynamic images of the abdomen in the anterior projection were obtained through 30 minutes. Sincalide (CCK analog) 2micrograms was administered intravenously over 30 minutes with additional imaging for determination of gallbladder ejection fraction. Findings: Perfusion to the liver is normal. Extraction of tracer from the blood pool by the liver parenchyma is normal. Tracer is seen promptly within the biliary tract. The gallbladder begins to fill promptly and fills adequately. Tracer is seen in the small bowel within normal time frame. The gallbladder ejection fraction with administration of sincalide is 53 % (normal greater than 40%). Impression: 1. Filling of the gallbladder excludes the diagnosis of acute cystic duct obstruction/acute cholecystitis. 2. Normal gallbladder ejection fraction of 53% does not support the clinical diagnosis of chronic cholecystitis/gallbladder dyskinesia. Signed by: Teddy Dexter DO on 07/30/2019 11:25 PM
[2019-07-30 23:59] VITALS: BP 104/61
[2019-07-31] VITALS (7 sets, daily range): BP systolic 99–119; BP diastolic 55–60
--- NOTE | 2019-07-31 02:23 | NUR ---
Received report from PM nurse. Patient resting quitly at this time.
--- NOTE | 2019-07-31 02:23 | NUR ---
Dr Hwang on the floor to see patient. Received orders and completed.
[2019-07-31] MEDS: MORPHINE SULFATE 2 MG/ML SYR 1ML IV PRN ×3 (03:37→15:13)
[2019-07-31] MEDS: ONDANSETRON HCL INJ 2MG/ML 2ML 2 MG/ML VIAL IV PRN ×3 (03:37→15:13)
[2019-07-31] MEDS: SODIUM CHLORIDE 0.9% 1000ML 1,000 ML IV SCH ×4 (03:37→20:10)
[2019-07-31 05:39] LABS: BASOPHILS % 0.5 % (0.0-1.0); EOSINOPHILS # (AUTO) 0.2 (0.0-0.4); EOSINOPHILS % 2.4 % (0.0-6.0); HEMATOCRIT 32.9 % (34.2-44.1); HEMOGLOBIN 11.3 g/dL (12.0-16.0); LYMPHOCYTES # (AUTO) 2.8 (1.0-3.2); LYMPHOCYTES % 44.9 % (18.0-39.1); MEAN CORPUSCULAR HEMOGLOBIN 29.6 pg (28-32); MEAN CORPUSCULAR HGB CONC 34.3 g/dL (31-35); MEAN CORPUSCULAR VOLUME 86.1 fL (81-99); MONOCYTES # (AUTO) 0.4 (0.2-0.8); MONOCYTES % 6.7 % (4.4-11.3); NEUTROPHILS # (AUTO) 2.8 (2.1-6.9); NEUTROPHILS % 45.2 % (38.7-80.0); PLATELET COUNT 324 x10e3/uL (140-360); RED BLOOD COUNT 3.82 x10e6/uL (3.6-5.1); RED CELL DISTRIBUTION WIDTH 14.1 % (11.7-14.4)
[2019-07-31] MEDS: PIPER-TAZ 3.375 GM / NS 50ML IV SCH ×2 (05:48→13:30)
[2019-07-31 06:01] LABS: ALANINE AMINOTRANSFERASE 17 IU/L (0-55); ALBUMIN 3.3 g/dL (3.5-5.0); ALBUMIN/GLOBULIN RATIO 1.2 (0.8-2.0); ALKALINE PHOSPHATASE 79 IU/L (40-150); ANION GAP 12.9 mmol/L (8-16); BLOOD UREA NITROGEN 12 mg/dL (7-26); BUN/CREATININE RATIO 15 (6-25); CALCIUM 8.8 mg/dL (8.4-10.2); CARBON DIOXIDE 25 mmol/L (22-29); CHLORIDE 104 mmol/L (98-107); CREATININE, SERUM 0.79 mg/dL (0.57-1.11); EST GLOMERULAR FILTRATION RATE > 60 ML/MIN (60-); GLUCOSE 95 mg/dL (74-118); LIPASE 310 U/L (8-78); POTASSIUM 3.9 mmol/L (3.5-5.1); SODIUM 138 mmol/L (136-145)
--- NOTE | 2019-07-31 06:38 | NUR ---
Consent signed . Patient resting quitly at this time.
--- NOTE | 2019-07-31 06:55 | NUR ---
rounded with night coordinator nurse, patient aware of change and in no distress. call noonan within reach and bed in lowest position.
[2019-07-31] MEDS: FAMOTIDINE 20 MG/2 ML VIAL IV SCH (09:00)
--- NOTE | 2019-07-31 13:35 | NUR ---
patient alert and oriented. leaving unit via hospital bed to EGD at this time.
[2019-07-31] MEDS ORDERED: D AMPHET PO SCH (14:00)
[2019-07-31] MEDS ORDERED: AMPHET ASP PO SCH (14:00)
[2019-07-31] MEDS ORDERED: AMPHET PO SCH (14:00)
[2019-07-31] MEDS ORDERED: FENTANYL CITRATE/PF 100MCG/2 ML INJ ONE (14:57)
[2019-07-31] MEDS ORDERED: MIDAZOLAM HCL 2 MG/2 ML VIAL ONE (14:57)
[2019-07-31] MEDS ORDERED: PANTOPRAZOLE 40 MG 10ML VIAL IV ONE (15:00)
--- NOTE | 2019-07-31 15:00 | NUR ---
patient back to unit, alert and oriented. patient has complaints of abdominal pain remaining. IV in tact, bed in lowest position and call noonan within reach.
[2019-07-31] MEDS ORDERED: PROPOFOL IV EMULSION 10 MG/ML 50 ML VIAL ONE (15:04)
[2019-07-31] MEDS ORDERED: KETOROLAC TROMETHAMINE 30 MG/ML VIAL IV STA (15:45)
[2019-07-31] MEDS ORDERED: KETOROLAC TROMETHAMINE 30 MG/ML VIAL IV PRN (15:45)
[2019-07-31] MEDS: CELECOXIB 200 MG CAP PO SCH (16:00)
[2019-07-31] MEDS ORDERED: VYVANSE20 MG (16:09)
--- NOTE | 2019-07-31 19:22 | Operative Report ---
DATE OF PROCEDURE: 07/31/2019 SURGEON: Michael Hwang MD PROCEDURE: EGD with biopsies. INDICATIONS FOR EGD: Upper abdominal pain, nausea. MEDICATIONS: The patient was done under MAC, please see anesthesiologist's note. PROCEDURE IN DETAIL: With the patient in left lateral decubitus position, a flexible fiberoptic Olympus gastroscope was introduced into the esophagus under direct visualization without any difficulty. There was some patchy erythema noted in the distal esophagus. The scope was then advanced with ease into the stomach. Mucosa overlying the antrum and the body revealed some patchy intense erythema and low-grade to moderate edema, and biopsies were obtained and sent to stain for H. pylori. The pylorus was of normal contour and shape, it was intubated with ease and the scope was advanced all the way to the second portion of the duodenum. Biopsies were obtained from the proximal second portion and duodenal bulb to rule out sprue. The scope was then withdrawn back into the stomach and retroflexed and mucosa overlying the fundus and the cardia appeared to be within normal limits. The scope was then straightened out, it was subsequently withdrawn, and the patient tolerated the procedure well. IMPRESSION: 1. Distal esophagitis, mild. 2. Gastritis, biopsied, biopsies sent to stain for Helicobacter pylori. 3. Rule out sprue. PLAN: Follow up histology. Initiate full liquid diet. Michael Hwang MD [facility] [place]/MODL /[id number] cc: Dr. Madelin Simpson MD
[2019-07-31] MEDS: PANTOPRAZOLE 40 MG 10ML VIAL IV SCH (20:10)
[2019-07-31] MEDS ORDERED: IOPAMIDOL 370 MG/ML 200 ML INFUS..BTL INJ ONE (20:36)
[2019-07-31] MEDS ORDERED: SODIUM CHLORIDE 0.9% 50ML 50 ML ONE (20:36)
--- NOTE | 2019-07-31 20:50 | Diagnostic Imaging Report ---
EXAM: CT Chest WITH contrast 07/31/2019 7:22 PM INDICATION: ^ABDOMINAL PAIN ^[id number] ^1930 COMPARISON: Chest radiograph 07/30/[address] abdomen and pelvis 07/30/2019 TECHNIQUE: Chest was scanned utilizing a multidetector helical scanner from the lung apex through the level of the adrenal glands after administration of IV contrast. Coronal and sagittal reformations were obtained. IV CONTRAST: 100 mL of Isovue-370 ORAL CONTRAST: None COMPLICATIONS: None RADIATION DOSE: Total DLP: 571.7 mGy*cm Estimated effective dose: (DLP x 0.015 x size factor) mSv CTDIvol has been reviewed. It is below the limits set by the Radiation Protocol Committee (RPC). FINDINGS: LINES/ TUBES: None. LUNGS AND AIRWAYS: Minimal scarring in both lung bases. Otherwise, lungs are unremarkable. Airways are normal. PLEURA: The pleural spaces are clear. HEART AND MEDIASTINUM: The thyroid gland is normal. No mediastinal, hilar or axillary lymphadenopathy. The heart is normal in size. There is no pericardial effusion. The thoracic aorta and pulmonary arteries are unremarkable. UPPER ABDOMEN: Since yesterday's exam, there has been interval development of gallbladder wall thickening, especially in the fundus. This is better seen on axial, image 1:15. BONES: The visualized bony thorax is within normal limits. SOFT TISSUES: Unremarkable. IMPRESSION: Interval development of gallbladder wall thickening concerning for acute cholecystitis. No calcified stones are visualized. Recommend further evaluation with right upper quadrant ultrasound. Signed by: Dr. Lynda Doss M.D. on 07/31/2019 8:46 PM
--- NOTE | 2019-07-31 23:44 | History and Physical ---
The patient is placed on observation. TELEMETRY RN: Dr. Michael Hwang and Dr. Shaquille Prado. CHIEF COMPLAINT: Right upper chest pain and right upper quadrant abdominal pain since July 19, 2019. HISTORY OF PRESENT ILLNESS: This is a 43-year-old female having severe pain in the right rib cage area and right upper quadrant pain. The patient was seen by her primary care physician, was treated for possible kidney stone and also urinary tract infection. The patient had multiple rounds of antibiotic, did not improve. She came to the hospital, complained of pain. Here in the hospital on admission, the patient had multiple tests done including abdominal and pelvic CT scan done because of the pain. She found to have an unremarkable noncontrast exam. There was no evidence of gallstone or kidney stone or appendicitis. The patient also had a chest x-ray that was unremarkable. The gallbladder ultrasound showed minimal gallbladder sludge without evidence of gallstone or cholecystitis. The patient remained with significant pain, especially with any deep breathing, associated with some nausea when she eats. Every time she moves, she has increase in pain. The patient also having pain when palpation to the right lower rib cage area. The patient had a HIDA scan, show filling of the gallbladder, exclude diagnosis of the acute cystic duct. There is no obstruction, no acute cholecystitis. Normal gallbladder ejection fraction of 55%. The patient is otherwise stable. She is placed on observation for further workup. PAST MEDICAL HISTORY: ADD. PAST SURGICAL HISTORY: . SOCIAL HISTORY: The patient does not smoke or use alcohol. No reactional drug use. ALLERGIES: TO HYDROMORPHONE. HOME MEDICATION: Adderall. PHYSICAL EXAMINATION: VITAL SIGNS: Temperature is 98, blood pressure 119/60, pulse rate 69, respirations 18. GENERAL: The patient is not in acute distress. She is awake. HEENT: Normocephalic, atraumatic. Pupils reactive. Anicteric. NECK: Supple grossly. PULMONARY: Clear. CARDIOVASCULAR: Regular rate and rhythm. ABDOMEN: Soft. EXTREMITIES: No cyanosis or edema. NEUROLOGIC: No gross focal deficit. MUSCULOSKELETAL: Palpation of the right lower rib cage area elicited significant amount of pain. Right upper quadrant examination slightly increase in pain, but not as extensive as pressure on the right lower rib cage area. LABORATORY DATA: Sodium is 138, potassium 3.9, chloride 104, bicarb 25, BUN 12, creatinine 0.9, glucose is 95. WBC 6.3, hemoglobin 11.3, hematocrit 33, platelets 329. Again, CT of abdomen and pelvis, chest x-ray, gallbladder ultrasound, and HIDA scan all otherwise unremarkable. IMPRESSION: Right lower rib cage area pain with right lower chest pain area and right upper quadrant pain. This could be secondary to possible musculoskeletal pain, possible costochondritis on examination. PLAN: The patient has already had EGD, only showed gastritis. Plan for the patient to receive Toradol IV and Celebrex. We will obtain a CT of the chest with and without contrast to make sure that there is no other etiology of her pain since this has been going on since July 19. Discussed with the patient and family by bedside. We will trial of the anti-inflammatory and we will follow up on the CT scan. In the meantime, the patient should be able to eat. MD KAVITA Clark/MORENO /[id number]
[2019-08-01 00:39] VITALS: BP 93/55
[2019-08-01 04:26] VITALS: BP 100/57
[2019-08-01 06:09] LABS: ANION GAP 11.1 mmol/L (8-16); BLOOD UREA NITROGEN 10 mg/dL (7-26); BUN/CREATININE RATIO 13 (6-25); CALCIUM 8.9 mg/dL (8.4-10.2); CARBON DIOXIDE 24 mmol/L (22-29); CHLORIDE 107 mmol/L (98-107); CREATININE, SERUM 0.78 mg/dL (0.57-1.11); EST GLOMERULAR FILTRATION RATE > 60 ML/MIN (60-); GLUCOSE 103 mg/dL (74-118); POTASSIUM 4.1 mmol/L (3.5-5.1); SODIUM 138 mmol/L (136-145)
[2019-08-01 07:35] VITALS: BP 100/57
[2019-08-01] MEDS: CELECOXIB 200 MG CAP PO SCH (08:00)
[2019-08-01] MEDS ORDERED: (Amphet Asp/Amphet/D-Amphet (Adderall 20 Mg Tablet) 20 MG) PO SCH (08:00)
[2019-08-01 08:23] VITALS: BP 125/66
[2019-08-01] MEDS: PANTOPRAZOLE 40 MG 10ML VIAL IV SCH (09:00)
--- NOTE | 2019-08-01 10:12 | NUR ---
pt aury. reviewed dc instructions, verbalized understanding.
--- NOTE | 2019-08-01 18:23 | Discharge Summary ---
CONSULTANTS: 1. Michael Hwang MD. 2. Shaquille Prado MD. FINAL DIAGNOSES: 1. Right upper quadrant and right rib cage pain, status post multiple workup done. 2. Nausea, resolved. SUMMARY: The patient is a pleasant 43-year-old female, been having problem with the right upper quadrant and right lower rib cage pain, sounds like for the past 2 weeks or so. The patient was on multiple antibiotics and did not improve. Finally, she came to the hospital for evaluation. The patient was having multiple workup including a HIDA scan, gallbladder ultrasound, chest x-ray, abdominal pelvic CT, and chest CT scan. All pretty much confirmed that the patient's imaging meehan, except for the CT of the chest, there is no sign of acute cholecystitis. The HIDA scan showed normal ejection fraction and the filling is normal. The patient is stable. On physical examination of the patient, she was having significant amount of pain when palpation on to the right lower rib cage area. The right upper quadrant pain is more pressure-like. But the pain significantly sharp and tender with palpation of the lower rib cage area consistent with most likely costochondritis. The patient was tried on Toradol and Celebrex and her pain completely resolved. She is having good oral intake now. No nausea. No vomiting. Discussed with the patient at length. This could still be a gallbladder problem, but if she is having recurrent pain, not resolved with Celebrex pain control, the patient may have exploratory laparotomy and may be looking at the gallbladder. Discussed with the patient and given the patient information. She has agreed. She will go home today. Again, the patient is symptomatic. She is doing much better. Discharged today. MD KAVITA Clark/MODL /[id number]
== END 2019-08-01 10:15 | disposition home or self-care (01) ==
LOC: FSED 10:19 → ERHOLD 14:47 → IMCU 18:01
PROVIDERS: ADMIT Internal Medicine; ATTEND Internal Medicine
DX: R10.11 Right upper quadrant pain (principal); K29.70 Gastritis, unspecified, without bleeding; K20.9 Esophagitis, unspecified; F98.8 Other specified behavioral and emotional disorders with onset usually occurring in childhood and adolescence; M54.9 Dorsalgia, unspecified; R07.81 Pleurodynia; R11.0 Nausea; Z88.5 Allergy status to narcotic agent; Z87.442 Personal history of urinary calculi
CPT/HCPCS: 36415 ×3; 43239; 71045; 71260; 74176; 76705; 78227; 80048; 80053 ×2; 81001; 81025; 82150; 82550; 82553; 83690 ×2; 83735; 84484; 85025 ×2; 85610; 85730; 88305; 88312; 93005; 99284; A9537; C9113; G0378 ×3; J1885; J2250; J2270 ×3; J2405 ×2; J2543 ×2; J2704; J3010; J7030 ×2; Q9967

== ENCOUNTER 2019-08-02 13:07 | Inpatient (IN) | payer BC ==
[~2019-08-02] VITALS: Ht 170.2 cm; Wt 105.7 kg
[~2019-08-02 13:07] MED LIST changes: +VYVANSE20 MG
--- OUTSIDE RECORDS SUMMARY | 2019-08-02 13:09 | XMS REPORT | Continuity of Care Document ---
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 Role Phone [employer] Information [employer] Unavailable Unavailable Problems Problem Status Onset Date [...] 09/18/2017 [facility] Allergic reaction Active Problem 08/22/2018 [facility] Medications Medication Details Route Status Patient Instructions Ordering Provider Order Date Source Betametrasone , Active 08/17/2018 [facility] Diphenhydramine Hcl (Benadryl) 25 Mg Capsule, Active 08/17/2018 [facility] Hydroxyzine Hcl 25 Mg Tablet, 25 Mg Oral Daily Active 08/17/2018 [facility] Methylprednisolone 4 Mg Tab.ds.pk, Active 08/17/2018 [facility] Albuterol 0.83 MG/ML Inhalant Solution albuterol sulfate [...] Fluticasone propionate 0.05 MG/ACTUAT Metered Dose Nasal [address] [place] fluticasone propionate 50 mcg/actuation nasal spray,suspension [address] [place] 2 sprays every day by intranasal route [...] Mg Tablet) 15 Mg Tablet Qevening Active [facility] Amphet Asp/Amphet/D-Amphet (Adderall 20 Mg Tablet) 20 Mg Tablet Every Morning Active [facility] Control Active [facility] Allergies, Adverse Reactions, Alerts Substance Category Reaction Severity Reaction type Status Date Reported Comments Source Hydromorphone ITCH Mild Allergy to Substance Active 08/21/2018 [facility] Immunizations No Data Provided for This Section Results Order Name Results Value Reference Range Date Interpretation Comments Source RESULT negative 02/01/2019 [facility] SWAB LOCATION Left and Right tonsillar pillars 02/01/2019 [facility] Influenza A positive 02/01/2019 [facility] Influenza B negative 02/01/2019 [facility] Estimated glomerular filtration rate (GFR) determination Estimated glomerular filtration rate (GFR) determination >60 60 08/21/2018 [facility] Glucose measurement Glucose measurement 93 74 - 118 08/21/2018 [facility] Plasma globulin measurement (mass/volume) Plasma globulin measurement (mass/volume) 3.2 2.3 - 3.5 08/21/2018 [facility] Serum or plasma alanine aminotransferase measurement (enzymatic activity/volume) Serum or plasma alanine aminotransferase measurement (enzymatic activity/volume) 31 0 - 55 08/21/2018 [facility] Serum or plasma albumin measurement (mass/volume) Serum or plasma albumin measurement (mass/volume) 3.4 3.5 - 5.0 08/21/2018 [facility] Serum or plasma albumin/globulin mass ratio Serum or plasma albumin/globulin mass ratio 1.1 0.8 - 2.0 08/21/2018 [facility] Serum or plasma alkaline phosphatase measurement (enzymatic activity/volume) Serum or plasma alkaline phosphatase measurement (enzymatic activity/volume) 49 40 - 150 08/21/2018 [facility] Serum or plasma anion gap Serum or plasma anion gap 15.9 8 - 16 08/21/2018 [facility] Serum or plasma calcium measurement (mass/volume) Serum or plasma calcium measurement (mass/volume) 8.8 8.4 - 10.2 08/21/2018 [facility] Serum or plasma carbon dioxide, total measurement (moles/volume) Serum or plasma carbon dioxide, total measurement (moles/volume) 22 22 - 29 08/21/2018 [facility] Serum or plasma chloride measurement (moles/volume) Serum or plasma chloride measurement (moles/volume) 107 98 - 107 08/21/2018 [facility] Serum or plasma creatinine measurement (mass/volume) Serum or plasma creatinine measurement (mass/volume) 0.76 0.57 - 1.11 08/21/2018 [facility] Serum or plasma potassium measurement (moles/volume) Serum or plasma potassium measurement (moles/volume) 3.9 3.5 - 5.1 08/21/2018 [facility] Serum or plasma protein measurement (mass/volume) Serum or plasma protein measurement (mass/volume) 6.6 6.5 - 8.1 08/21/2018 [facility] Serum or plasma sodium measurement (moles/volume) Serum or plasma sodium measurement (moles/volume) 141 136 - 145 08/21/2018 [facility] Serum or plasma total bilirubin measurement (mass/volume) Serum or plasma total bilirubin measurement (mass/volume) 0.2 0.2 - 1.2 08/21/2018 [facility] Serum or plasma urea nitrogen measurement (mass/volume) Serum or plasma urea nitrogen measurement (mass/volume) 15 7 - 26 08/21/2018 [facility] Serum or plasma urea nitrogen/creatinine mass ratio Serum or plasma urea nitrogen/creatinine mass ratio 20 6 - 25 08/21/2018 [facility] Aspartate Amino Transf (AST/SGOT) 14 5 - 34 08/21/2018 [facility] Serum or plasma creatine kinase MB measurement (mass/volume) Serum or plasma creatine kinase MB measurement (mass/volume) 0.20 0 - 5.0 08/21/2018 [facility] Serum or plasma creatine kinase measurement (enzymatic activity/volume) Serum or plasma creatine kinase measurement (enzymatic activity/volume) 19 29 - 168 08/21/2018 [facility] Serum or plasma lipase measurement (enzymatic activity/volume) Serum or plasma lipase measurement (enzymatic activity/volume) 135 8 - 78 08/21/2018 [facility] Troponin I measurement by highly sensitive enzyme immunoassay Troponin I measurement by highly sensitive enzyme immunoassay <0.001 0 - 0.300 08/21/2018 [facility] Automated urine sediment leukocyte count by microscopy (number/high power field) Automated urine sediment leukocyte count by microscopy (number/high power field) NONE 0 - 5 08/21/2018 [facility] Bacteria detection in urine sediment by light microscopy Bacteria detection in urine sediment by light microscopy NONE NONE 08/21/2018 [facility] Barbiturates screen, urine Barbiturates screen, urine NEGATIVE NEGATIVE 08/21/2018 [facility] Epithelial cells detection in urine sediment by light microscopy Epithelial cells detection in urine sediment by light microscopy MODERATE NONE 08/21/2018 [facility] Erythrocytes detection in urine sediment by light microscopy Erythrocytes detection in urine sediment by light microscopy NONE 0 - 5 08/21/2018 [facility] Specific gravity of Urine by Test strip Specific gravity of Urine by Test strip 1.015 1.010 - 1.025 08/21/2018 [facility] Urine amphetamines detection by screen method > 1000 ng/mL Urine amphetamines detection by screen method > 1000 ng/mL NEGATIVE NEGATIVE 08/21/2018 [facility] Urine benzodiazepines detection by screening method Urine benzodiazepines detection by screening method NEGATIVE NEGATIVE 08/21/2018 [facility] Urine cannabinoids detection by screening method Urine cannabinoids detection by screening method NEGATIVE NEGATIVE 08/21/2018 [facility] Urine clarity Urine clarity CLEAR CLEAR 08/21/2018 [facility] Urine cocaine measurement (mass/volume) Urine cocaine measurement (mass/volume) NEGATIVE NEGATIVE 08/21/2018 [facility] Urine color determination Urine color determination YELLOW YELLOW 08/21/2018 [facility] Urine erythrocytes detection Urine erythrocytes detection NEGATIVE NEGATIVE 08/21/2018 [facility] Urine glucose detection Urine glucose detection NEGATIVE NEGATIVE 08/21/2018 [facility] Urine ketones detection by automated test strip Urine ketones detection by automated test strip NEGATIVE NEGATIVE 08/21/2018 [facility] Urine leukocyte esterase detection by dipstick Urine leukocyte esterase detection by dipstick NEGATIVE NEGATIVE 08/21/2018 [facility] Urine methadone screen Urine methadone screen NEGATIVE NEGATIVE 08/21/2018 [facility] Urine nitrite detection Urine nitrite detection NEGATIVE NEGATIVE 08/21/2018 [facility] Urine opiates screening test Urine opiates screening test POSITIVE NEGATIVE 08/21/2018 [facility] Urine pH measurement by automated test strip Urine pH measurement by automated test strip 7 5 - 7 08/21/2018 [facility] Urine phencyclidine detection by screening method Urine phencyclidine detection by screening method NEGATIVE NEGATIVE 08/21/2018 [facility] Urine protein measurement by test strip (mass/volume) Urine protein measurement by test strip (mass/volume) NEGATIVE NEGATIVE 08/21/2018 [facility] Urine total bilirubin measurement (mass/volume) Urine total bilirubin measurement (mass/volume) NEGATIVE NEGATIVE 08/21/2018 [facility] Urine urobilinogen measurement by test strip (mass/volume) Urine urobilinogen measurement by test strip (mass/volume) 0.2 0.2 - 1 08/21/2018 [facility] Urine Methamphetamines Screen NEGATIVE NEGATIVE 08/21/2018 [facility] Automated blood basophil count (count/volume) Automated blood basophil count (count/volume) 0.0 0.0 - 0.1 08/21/2018 [facility] Automated blood basophil count as percentage of total leukocytes Automated blood basophil count as percentage of total leukocytes 0.4 0.0 - 1.0 08/21/2018 [facility] Automated blood eosinophil count Automated blood eosinophil count 0.0 0.0 - 0.4 08/21/2018 [facility] Automated blood eosinophil count as percentage of total leukocytes Automated blood eosinophil count as percentage of total leukocytes 0.1 0.0 - 6.0 08/21/2018 [facility] Automated blood hematocrit (volume fraction) Automated blood hematocrit (volume fraction) 37.9 34.2 - 44.1 08/21/2018 [facility] Automated blood lymphocyte count as percentage ot total leukocytes Automated blood lymphocyte count as percentage ot total leukocytes 37.6 18.0 - 39.1 08/21/2018 [facility] Automated blood monocyte count as percentage of total leukocytes Automated blood monocyte count as percentage of total leukocytes 6.9 4.4 - 11.3 08/21/2018 [facility] Automated blood neutrophil count Automated blood neutrophil count 5.8 2.1 - 6.9 08/21/2018 [facility] Automated blood platelet count (count/volume) Automated blood platelet count (count/volume) 324 140 - 360 08/21/2018 [facility] Automated blood segmented neutrophil count as percentage of total leukocytes Automated blood segmented neutrophil count as percentage of total leukocytes 53.4 38.7 - 80.0 08/21/2018 [facility] Automated erythrocyte mean corpuscular hemoglobin (mass per erythrocyte) Automated erythrocyte mean corpuscular hemoglobin (mass per erythrocyte) 30.1 28 - 32 08/21/2018 [facility] Automated erythrocyte mean corpuscular hemoglobin concentration measurement (mass/volume) Automated erythrocyte mean corpuscular hemoglobin concentration measurement (mass/volume) 34.3 31 - 35 08/21/2018 [facility] Automated erythrocyte mean corpuscular volume Automated erythrocyte mean corpuscular volume 87.7 81 - 99 08/21/2018 [facility] Blood erythrocytes automated count (number/volume) Blood erythrocytes automated count (number/volume) 4.32 3.6 - 5.1 08/21/2018 [facility] Blood hemoglobin measurement (moles/volume) Blood hemoglobin measurement (moles/volume) 13.0 12.0 - 16.0 08/21/2018 [facility] Blood leukocytes automated count (number/volume) Blood leukocytes automated count (number/volume) 10.80 4.8 - 10.8 08/21/2018 [facility] Blood lymphocytes count (number/volume) Blood lymphocytes count (number/volume) 4.1 1.0 - 3.2 08/21/2018 [facility] Blood monocytes automated count (number/volume) Blood monocytes automated count (number/volume) 0.7 0.2 - 0.8 08/21/2018 [facility] Red Cell Distribution Width 14.1 11.7 - 14.4 08/21/2018 [facility] IM GRANULOCYTES % 1.6 0.0 - 1.0 08/21/2018 [facility] Absolute Immature Granulocyte (auto 0.17 0 - 0.1 08/21/2018 [facility] Fibrin D-dimer DDU measurement in platelet poor plasma (mass/volume) Fibrin D-dimer DDU measurement in platelet poor plasma (mass/volume) 130 0 - 400 08/17/2018 [facility] Mucus detection in urine sediment by light microscopy Mucus detection in urine sediment by light microscopy FEW RARE 08/17/2018 [facility] Urine human chorionic gonadotropin (hCG) detection Urine human chorionic gonadotropin (hCG) detection NEGATIVE NEGATIVE 08/17/2018 [facility] Influenza A negative 01/31/2018 [facility] Influenza B negative 01/31/2018 [facility] RESULT negative 01/31/2018 [facility] SWAB LOCATION Left and Right tonsillar pillars 01/31/2018 [facility] Bacterial urine culture Bacterial urine culture Urine Culture [facility] Pathology Reports No Data Provided for This [...] Date Status Source [place] - [facility] - [id number] PriceC: [address] [place] [address], Ph. [id number] Shelton Clark 10/28/2016 [facility] [place] - [facility] - [id number] Aden-C: [address] [place] [address], Ph. [id number] Bree Fuller 09/18/2017 [facility] [place] - [facility] - [id number] Fuller, [employer]ATOR-C: [address] [place] [address], Ph. 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 [phone] [id number] Jayna Navarro 02/01/2019 [facility] Procedures Procedure Code Date Perfomer Comments Source Computed tomography of abdomen and pelvis with contrast [id number] 08/18/2018 [facility] Computed tomography of chest with contrast [id number] 08/17/2018 [facility] Magnetic resonance imaging of thoracic spine without contrast [id number] 08/17/2018 [facility] Magnetic resonance imaging of cervical spine without contrast [id number] 08/17/2018 [facility] Assessment and Plan No Data Provided for This Section Plan of Care Plan of Care Date Source Discharge Date 08/21/18 5:00pm Disposition HOME, SELF-CARE Condition at Discharge Stable Instructions/Education Provided Generalized Anxiety Disorder Back Pain Forms Provided Work/School Excuse Prescriptions See Medication Section Referrals FRANCIA ACUÑA MD Address: [address] [place] [address] [address] [place] [address] DESEAN BELLE MD Address: [address] [place] [address] Additional Instructions/Education 1. follow up with orthopedic doctor in 1-2 dyas without fail 2. return to ed as needed 3. take prescriptions as prescribed 08/21/2018 [facility] Social History Social History Date Source Smoking Status Start Date Stop Date Never Smoker 08/21/2018 [facility] Smoking Status Never Smoker 10/28/2016 [facility] Family History No Data Provided for This Section Advance Directives Order Name Results Value Date Source Advance Directives Advance Directives Directive Response Recorded Date/Time Does the patient have an advance directive? Yes 08/21/18 11:08am If yes, is advance directive on file with [facility]? No 08/17/18 12:30pm If not on file with [facility] will patient provide a copy? No 08/17/18 12:30pm Do you have a Directive to Physician? Yes 08/21/18 11:08am Do you have a Medical Power of Clam Picker? Yes 08/21/18 11:08am Do you have an [...] rights and responsibilities? Yes 08/21/18 11:08am 08/21/2018 [facility] Functional Status No Data Provided for This Section
[2019-08-02 13:54] LABS: BASOPHILS % 0.5 % (0.0-1.0); EOSINOPHILS # (AUTO) 0.1 (0.0-0.4); HEMATOCRIT 35.5 % (34.2-44.1); HEMOGLOBIN 11.9 g/dL (12.0-16.0); LYMPHOCYTES # (AUTO) 2.6 (1.0-3.2); LYMPHOCYTES % 43.6 % (18.0-39.1); MEAN CORPUSCULAR HEMOGLOBIN 28.8 pg (28-32); MEAN CORPUSCULAR HGB CONC 33.5 g/dL (31-35); MONOCYTES # (AUTO) 0.5 (0.2-0.8); MONOCYTES % 7.8 % (4.4-11.3); NEUTROPHILS # (AUTO) 2.7 (2.1-6.9); NEUTROPHILS % 45.4 % (38.7-80.0); PLATELET COUNT 391 x10e3/uL (140-360); RED BLOOD COUNT 4.13 x10e6/uL (3.6-5.1); RED CELL DISTRIBUTION WIDTH 13.7 % (11.7-14.4)
[2019-08-02 14:05] LABS: INR 0.82; PROTHROMBIN TIME 11.8 seconds (11.9-14.5)
[2019-08-02 14:06] LABS: BILIRUBIN,URINE NEGATIVE (NEGATIVE); CLARITY,URINE CLEAR (CLEAR); COLOR,URINE YELLOW (YELLOW); KETONES,URINE NEGATIVE (NEGATIVE); LEUKOCYTE ESTERASE ,URINE NEGATIVE (NEGATIVE); NITRITE,URINE NEGATIVE (NEGATIVE); PROTEIN,URINE DIPSTICK NEGATIVE (NEGATIVE); URINE UROBILINOGEN 0.2 mg/dL (0.2 - 1)
[2019-08-02 14:06] LABS: PARTIAL THROMBOPLASTIN TIME 29.3 seconds (23.8-35.5)
[2019-08-02 14:18] LABS: ALANINE AMINOTRANSFERASE 37 IU/L (0-55); ALBUMIN/GLOBULIN RATIO 1.1 (0.8-2.0); ALKALINE PHOSPHATASE 100 IU/L (40-150); AMYLASE 64 U/L (25-125); ANION GAP 11.7 mmol/L (8-16); BLOOD UREA NITROGEN 11 mg/dL (7-26); BUN/CREATININE RATIO 13 (6-25); CALCIUM 9.8 mg/dL (8.4-10.2); CARBON DIOXIDE 27 mmol/L (22-29); CHLORIDE 104 mmol/L (98-107); CREATININE, SERUM 0.83 mg/dL (0.57-1.11); EST GLOMERULAR FILTRATION RATE > 60 ML/MIN (60-); GLUCOSE 80 mg/dL (74-118); LIPASE 43 U/L (8-78); POTASSIUM 3.7 mmol/L (3.5-5.1); SODIUM 139 mmol/L (136-145)
[2019-08-02 14:25] LABS: BACTERIA,URINE RARE /HPF; EPITHELIAL CELLS,URINE FEW /LPF
[2019-08-02] MEDS ORDERED: MORPHINE SULFATE 2 MG/ML SYR 1ML IV PRN (14:30)
[2019-08-02] MEDS ORDERED: CEFOXITIN 1GM/ D5W 50ML 50 ML IV SCH (15:00)
[2019-08-02] MEDS: SODIUM CHLORIDE 0.9% 1000ML 1,000 ML IV SCH (15:12)
[2019-08-02] MEDS: ONDANSETRON HCL INJ 2MG/ML 2ML 2 MG/ML VIAL IV PRN ×2 (15:15→21:11)
[2019-08-02] MEDS: MORPHINE SULFATE INJ 4 MG/ML INJ 1ML IV PRN ×2 (15:15→21:12)
--- OUTSIDE RECORDS SUMMARY | 2019-08-02 15:28 | XMS REPORT | Continuity of Care Document ---
Author Author Mipso Address Unknown Phone Unavailable Care Team Providers Care Show Host Name Role Phone [employer] Unavailable Unavailable Problems Problem Status Onset Date [...] 09/18/2017 [facility] Allergic reaction Active Problem 08/22/2018 [facility] Medications Medication Details Route Status Patient Instructions Ordering Provider Order Date Source Betametrasone , Active 08/17/2018 [facility] Diphenhydramine Hcl (Benadryl) 25 Mg Capsule, Active 08/17/2018 [facility] Hydroxyzine Hcl 25 Mg Tablet, 25 Mg Oral Daily Active 08/17/2018 [facility] Methylprednisolone 4 Mg Tab.ds.pk, Active 08/17/2018 [facility] Albuterol 0.83 MG/ML Inhalant Solution albuterol sulfate [...] Fluticasone propionate 0.05 MG/ACTUAT Metered Dose Nasal [place] fluticasone propionate 50 mcg/actuation nasal spray,suspension [place] 2 sprays every day by intranasal route [...] Mg Tablet) 15 Mg Tablet Qevening Active [facility] Amphet Asp/Amphet/D-Amphet (Adderall 20 Mg Tablet) 20 Mg Tablet Every Morning Active [facility] Control Active [facility] Allergies, Adverse Reactions, Alerts Substance Category Reaction Severity Reaction type Status Date Reported Comments Source Hydromorphone ITCH Mild Allergy to Substance Active 08/21/2018 [facility] Immunizations No Data Provided for This Section Results Order Name Results Value Reference Range Date Interpretation Comments Source RESULT negative 02/01/2019 [facility] SWAB LOCATION Left and Right tonsillar pillars 02/01/2019 [facility] Influenza A positive 02/01/2019 [facility] Influenza B negative 02/01/2019 [facility] Estimated glomerular filtration rate (GFR) determination Estimated glomerular filtration rate (GFR) determination >60 60 08/21/2018 [facility] Glucose measurement Glucose measurement 93 74 - 118 08/21/2018 [facility] Plasma globulin measurement (mass/volume) Plasma globulin measurement (mass/volume) 3.2 2.3 - 3.5 08/21/2018 [facility] Serum or plasma alanine aminotransferase measurement (enzymatic activity/volume) Serum or plasma alanine aminotransferase measurement (enzymatic activity/volume) 31 0 - 55 08/21/2018 [facility] Serum or plasma albumin measurement (mass/volume) Serum or plasma albumin measurement (mass/volume) 3.4 3.5 - 5.0 08/21/2018 [facility] Serum or plasma albumin/globulin mass ratio Serum or plasma albumin/globulin mass ratio 1.1 0.8 - 2.0 08/21/2018 [facility] Serum or plasma alkaline phosphatase measurement (enzymatic activity/volume) Serum or plasma alkaline phosphatase measurement (enzymatic activity/volume) 49 40 - 150 08/21/2018 [facility] Serum or plasma anion gap Serum or plasma anion gap 15.9 8 - 16 08/21/2018 [facility] Serum or plasma calcium measurement (mass/volume) Serum or plasma calcium measurement (mass/volume) 8.8 8.4 - 10.2 08/21/2018 [facility] Serum or plasma carbon dioxide, total measurement (moles/volume) Serum or plasma carbon dioxide, total measurement (moles/volume) 22 22 - 29 08/21/2018 [facility] Serum or plasma chloride measurement (moles/volume) Serum or plasma chloride measurement (moles/volume) 107 98 - 107 08/21/2018 [facility] Serum or plasma creatinine measurement (mass/volume) Serum or plasma creatinine measurement (mass/volume) 0.76 0.57 - 1.11 08/21/2018 [facility] Serum or plasma potassium measurement (moles/volume) Serum or plasma potassium measurement (moles/volume) 3.9 3.5 - 5.1 08/21/2018 [facility] Serum or plasma protein measurement (mass/volume) Serum or plasma protein measurement (mass/volume) 6.6 6.5 - 8.1 08/21/2018 [facility] Serum or plasma sodium measurement (moles/volume) Serum or plasma sodium measurement (moles/volume) 141 136 - 145 08/21/2018 [facility] Serum or plasma total bilirubin measurement (mass/volume) Serum or plasma total bilirubin measurement (mass/volume) 0.2 0.2 - 1.2 08/21/2018 [facility] Serum or plasma urea nitrogen measurement (mass/volume) Serum or plasma urea nitrogen measurement (mass/volume) 15 7 - 26 08/21/2018 [facility] Serum or plasma urea nitrogen/creatinine mass ratio Serum or plasma urea nitrogen/creatinine mass ratio 20 6 - 25 08/21/2018 [facility] Aspartate Amino Transf (AST/SGOT) 14 5 - 34 08/21/2018 [facility] Serum or plasma creatine kinase MB measurement (mass/volume) Serum or plasma creatine kinase MB measurement (mass/volume) 0.20 0 - 5.0 08/21/2018 [facility] Serum or plasma creatine kinase measurement (enzymatic activity/volume) Serum or plasma creatine kinase measurement (enzymatic activity/volume) 19 29 - 168 08/21/2018 [facility] Serum or plasma lipase measurement (enzymatic activity/volume) Serum or plasma lipase measurement (enzymatic activity/volume) 135 8 - 78 08/21/2018 [facility] Troponin I measurement by highly sensitive enzyme immunoassay Troponin I measurement by highly sensitive enzyme immunoassay <0.001 0 - 0.300 08/21/2018 [facility] Automated urine sediment leukocyte count by microscopy (number/high power field) Automated urine sediment leukocyte count by microscopy (number/high power field) NONE 0 - 5 08/21/2018 [facility] Bacteria detection in urine sediment by light microscopy Bacteria detection in urine sediment by light microscopy NONE NONE 08/21/2018 [facility] Barbiturates screen, urine Barbiturates screen, urine NEGATIVE NEGATIVE 08/21/2018 [facility] Epithelial cells detection in urine sediment by light microscopy Epithelial cells detection in urine sediment by light microscopy MODERATE NONE 08/21/2018 [facility] Erythrocytes detection in urine sediment by light microscopy Erythrocytes detection in urine sediment by light microscopy NONE 0 - 5 08/21/2018 [facility] Specific gravity of Urine by Test strip Specific gravity of Urine by Test strip 1.015 1.010 - 1.025 08/21/2018 [facility] Urine amphetamines detection by screen method > 1000 ng/mL Urine amphetamines detection by screen method > 1000 ng/mL NEGATIVE NEGATIVE 08/21/2018 [facility] Urine benzodiazepines detection by screening method Urine benzodiazepines detection by screening method NEGATIVE NEGATIVE 08/21/2018 [facility] Urine cannabinoids detection by screening method Urine cannabinoids detection by screening method NEGATIVE NEGATIVE 08/21/2018 [facility] Urine clarity Urine clarity CLEAR CLEAR 08/21/2018 [facility] Urine cocaine measurement (mass/volume) Urine cocaine measurement (mass/volume) NEGATIVE NEGATIVE 08/21/2018 [facility] Urine color determination Urine color determination YELLOW YELLOW 08/21/2018 [facility] Urine erythrocytes detection Urine erythrocytes detection NEGATIVE NEGATIVE 08/21/2018 [facility] Urine glucose detection Urine glucose detection NEGATIVE NEGATIVE 08/21/2018 [facility] Urine ketones detection by automated test strip Urine ketones detection by automated test strip NEGATIVE NEGATIVE 08/21/2018 [facility] Urine leukocyte esterase detection by dipstick Urine leukocyte esterase detection by dipstick NEGATIVE NEGATIVE 08/21/2018 [facility] Urine methadone screen Urine methadone screen NEGATIVE NEGATIVE 08/21/2018 [facility] Urine nitrite detection Urine nitrite detection NEGATIVE NEGATIVE 08/21/2018 [facility] Urine opiates screening test Urine opiates screening test POSITIVE NEGATIVE 08/21/2018 [facility] Urine pH measurement by automated test strip Urine pH measurement by automated test strip 7 5 - 7 08/21/2018 [facility] Urine phencyclidine detection by screening method Urine phencyclidine detection by screening method NEGATIVE NEGATIVE 08/21/2018 [facility] Urine protein measurement by test strip (mass/volume) Urine protein measurement by test strip (mass/volume) NEGATIVE NEGATIVE 08/21/2018 [facility] Urine total bilirubin measurement (mass/volume) Urine total bilirubin measurement (mass/volume) NEGATIVE NEGATIVE 08/21/2018 [facility] Urine urobilinogen measurement by test strip (mass/volume) Urine urobilinogen measurement by test strip (mass/volume) 0.2 0.2 - 1 08/21/2018 [facility] Urine Methamphetamines Screen NEGATIVE NEGATIVE 08/21/2018 [facility] Automated blood basophil count (count/volume) Automated blood basophil count (count/volume) 0.0 0.0 - 0.1 08/21/2018 [facility] Automated blood basophil count as percentage of total leukocytes Automated blood basophil count as percentage of total leukocytes 0.4 0.0 - 1.0 08/21/2018 [facility] Automated blood eosinophil count Automated blood eosinophil count 0.0 0.0 - 0.4 08/21/2018 [facility] Automated blood eosinophil count as percentage of total leukocytes Automated blood eosinophil count as percentage of total leukocytes 0.1 0.0 - 6.0 08/21/2018 [facility] Automated blood hematocrit (volume fraction) Automated blood hematocrit (volume fraction) 37.9 34.2 - 44.1 08/21/2018 [facility] Automated blood lymphocyte count as percentage ot total leukocytes Automated blood lymphocyte count as percentage ot total leukocytes 37.6 18.0 - 39.1 08/21/2018 [facility] Automated blood monocyte count as percentage of total leukocytes Automated blood monocyte count as percentage of total leukocytes 6.9 4.4 - 11.3 08/21/2018 [facility] Automated blood neutrophil count Automated blood neutrophil count 5.8 2.1 - 6.9 08/21/2018 [facility] Automated blood platelet count (count/volume) Automated blood platelet count (count/volume) 324 140 - 360 08/21/2018 [facility] Automated blood segmented neutrophil count as percentage of total leukocytes Automated blood segmented neutrophil count as percentage of total leukocytes 53.4 38.7 - 80.0 08/21/2018 [facility] Automated erythrocyte mean corpuscular hemoglobin (mass per erythrocyte) Automated erythrocyte mean corpuscular hemoglobin (mass per erythrocyte) 30.1 28 - 32 08/21/2018 [facility] Automated erythrocyte mean corpuscular hemoglobin concentration measurement (mass/volume) Automated erythrocyte mean corpuscular hemoglobin concentration measurement (mass/volume) 34.3 31 - 35 08/21/2018 [facility] Automated erythrocyte mean corpuscular volume Automated erythrocyte mean corpuscular volume 87.7 81 - 99 08/21/2018 [facility] Blood erythrocytes automated count (number/volume) Blood erythrocytes automated count (number/volume) 4.32 3.6 - 5.1 08/21/2018 [facility] Blood hemoglobin measurement (moles/volume) Blood hemoglobin measurement (moles/volume) 13.0 12.0 - 16.0 08/21/2018 [facility] Blood leukocytes automated count (number/volume) Blood leukocytes automated count (number/volume) 10.80 4.8 - 10.8 08/21/2018 [facility] Blood lymphocytes count (number/volume) Blood lymphocytes count (number/volume) 4.1 1.0 - 3.2 08/21/2018 [facility] Blood monocytes automated count (number/volume) Blood monocytes automated count (number/volume) 0.7 0.2 - 0.8 08/21/2018 [facility] Red Cell Distribution Width 14.1 11.7 - 14.4 08/21/2018 [facility] IM GRANULOCYTES % 1.6 0.0 - 1.0 08/21/2018 [facility] Absolute Immature Granulocyte (auto 0.17 0 - 0.1 08/21/2018 [facility] Fibrin D-dimer DDU measurement in platelet poor plasma (mass/volume) Fibrin D-dimer DDU measurement in platelet poor plasma (mass/volume) 130 0 - 400 08/17/2018 [facility] Mucus detection in urine sediment by light microscopy Mucus detection in urine sediment by light microscopy FEW RARE 08/17/2018 [facility] Urine human chorionic gonadotropin (hCG) detection Urine human chorionic gonadotropin (hCG) detection NEGATIVE NEGATIVE 08/17/2018 [facility] Influenza A negative 01/31/2018 [facility] Influenza B negative 01/31/2018 [facility] RESULT negative 01/31/2018 [facility] SWAB LOCATION Left and Right tonsillar pillars 01/31/2018 [facility] Bacterial urine culture Bacterial urine culture Urine Culture [facility] Pathology Reports No Data Provided for This [...] Date Status Source [place] - [facility] - [id number] PriceC: [address] [place] [address], Ph. [id number] Shelton Clark 10/28/2016 [facility] [place] [facility] - [id number] Aden-C: [address] [place] [address], Ph. [id number] Bree Fuller 09/18/2017 [facility] [place] - [facility] - [id number] Fuller, [facility]-C: [address] [place] [address], Ph. [id number] Bree Germany 01/31/2018 [facility] Discharged Inpatient (obs) [id number] BRISEIDA BRAND MD 08/17/2018 08/19/2018 [facility] Departed Emergency Room [id number] MARY RASHEED MD 08/21/2018 08/21/2018 [facility] - [facility] - [id number] Jayna Navarro [facility]-C: [address] [place] [address], Ph. [phone] [id number] Jayna Navarro 02/01/2019 [facility] Procedures Procedure Code Date Perfomer Comments Source Computed tomography of abdomen and pelvis with contrast [id number] 08/18/2018 [facility] Computed tomography of chest with contrast [id number] 08/17/2018 [facility] Magnetic resonance imaging of thoracic spine without contrast [id number] 08/17/2018 [facility] Magnetic resonance imaging of cervical spine without contrast [id number] 08/17/2018 [facility] Assessment and Plan No Data Provided for This Section Plan of Care Plan of Care Date Source Discharge Date 08/21/18 5:00pm Disposition HOME, SELF-CARE Condition at Discharge Stable Instructions/Education Provided Generalized Anxiety Disorder Back Pain Forms Provided Work/School Excuse Prescriptions See Medication Section Referrals FRANCIA ACUÑA MD Address: [address] [place] [address] [address] [place] [address] DESEAN BELLE MD Address: [address] [place] [id number] Additional Instructions/Education 1. follow up with orthopedic doctor in 1-2 dyas without fail 2. return to ed as needed 3. take prescriptions as prescribed 08/21/2018 [facility] Social History Social History Date Source Smoking Status Start Date Stop Date Never Smoker 08/21/2018 [facility] Smoking Status Never Smoker 10/28/2016 [facility] Family History No Data Provided for This Section Advance Directives Order Name Results Value Date Source Advance Directives Advance Directives Directive Response Recorded Date/Time Does the patient have an advance directive? Yes 08/21/18 11:08am If yes, is advance directive on file with [facility]? No 08/17/18 12:30pm If not on file with [facility] will patient provide a copy? No 08/17/18 12:30pm Do you have a Directive to Physician? Yes 08/21/18 11:08am Do you have a Medical Power of [employer]? Yes 08/21/18 11:08am Do you have an [...] rights and responsibilities? Yes 08/21/18 11:08am 08/21/2018 [facility] Functional Status No Data Provided for This Section
[2019-08-02] MEDS: PANTOPRAZOLE 40 MG 10ML VIAL IV SCH (15:43)
[2019-08-02] MEDS: CELECOXIB 200 MG CAP PO SCH (17:00)
[2019-08-02] MEDS ORDERED: CELECOXIB 100 MG CAP PO SCH (17:00)
[2019-08-02 17:33] VITALS: BP 136/80
[2019-08-02 18:14] VITALS: BP 136/80
[2019-08-02 18:18] VITALS: BP 136/80
[2019-08-02 18:19] VITALS: BP 136/80
[2019-08-02 18:52] VITALS: BP 136/80
--- NOTE | 2019-08-02 19:00 | NUR ---
received report from day nurse. patient is resting comfortably in bed. bed is in lowest position and call noonan is within reach. will continue to monitor patient.
[2019-08-02 20:00] VITALS: BP 134/82
[2019-08-03] VITALS (8 sets, daily range): BP systolic 104–143; BP diastolic 55–84
[2019-08-03] MEDS: KETOROLAC TROMETHAMINE 30 MG/ML VIAL IV PRN ×3 (02:22→16:03)
[2019-08-03] MEDS: SODIUM CHLORIDE 0.9% 1000ML 1,000 ML IV SCH (02:22)
--- NOTE | 2019-08-03 06:50 | NUR ---
report given to day nurse. patient is resting comfortably in bed. bed is in lowest position and call light is within reach.
[2019-08-03] MEDS: CELECOXIB 200 MG CAP PO SCH ×2 (08:00→18:34)
--- NOTE | 2019-08-03 08:33 | Consultation ---
DATE OF CONSULTATION: 08/03/2019 HISTORY OF PRESENT ILLNESS: The patient is a 43-year-old female, who was admitted to the hospital with complaints of right upper quadrant abdominal pain. The patient says she has had this pain for about 2-1/2 weeks now, pain is worse after eating. She has had some nausea. She has not had any vomiting. She says the pain has been severe at times, where she cannot get comfortable. She has had extensive workup done. Ultrasound revealed some gallbladder sludge. HIDA scan was normal. CT scan has been done twice and the most recent with contrast revealed abnormality gallbladder with thickening of the gallbladder wall. There are no symptoms of jaundice. She has had no fever and no weight loss. She also had upper GI endoscopy, which revealed only some mild gastritis and duodenitis. PAST MEDICAL HISTORY: The patient denies any chronic medical problems. PAST SURGICAL HISTORY: Only previous surgery is section. ALLERGIES: SHE HAS ALLERGY TO HYDROMORPHONE. MEDICATIONS: At home are Adderall. FAMILY HISTORY: Noncontributory. SOCIAL HISTORY: The patient does not smoke cigarettes or drink alcohol. REVIEW OF SYSTEMS: As stated above, otherwise was negative. PHYSICAL EXAMINATION: GENERAL: The patient is awake and alert, in no distress. VITAL SIGNS: Normal. She is not tachycardic. HEENT: Sclerae are not icteric. NECK: No masses. LUNGS: Equal breath sounds are clear bilaterally. CARDIAC: Regular rate and rhythm with no murmur. Abdomen: Tender in the epigastrium. There is no mass. There is no distention. No signs of peritonitis. No organomegaly. EXTREMITIES: Have no edema. Pulses are palpable. NEUROLOGIC: Intact. LABORATORY TEST: White blood cell count is normal. Hemoglobin and hematocrit normal. Chemistries were essentially normal. ASSESSMENT: A 43-year-old female with findings most consistent with chronic cholecystitis, although the HIDA scan is negative. There was sludge seen in the gallbladder on exam and the gallbladder appeared abnormal on most recent CT scan. At this point, the patient probably benefit from laparoscopy with probable cholecystectomy as remainder of the workup has been essentially negative and her symptoms are most consistent with gallbladder disease. This proposed procedure was explained to the patient including risks, benefits, and alternatives. She understands. She said that I had the opportunity to ask questions. She is aware that her pain may persist after surgery. Thank you for asking me to see Ms. Ferrari. MD DALILA Daniel/MORENO /[id number]
[2019-08-03] MEDS: PANTOPRAZOLE 40 MG 10ML VIAL IV SCH (09:00)
--- NOTE | 2019-08-03 09:24 | NUR ---
Pt off of unit at this time for procedure, via bed with assistance x2. Paperwork in chart, IV access patent. Pt a&o x3, resp WNL, c/o sharp pain to R abd.
[2019-08-03] MEDS ORDERED: BUPIVACAINE HCL 0.5% INJ 30 ML VIAL INJ ONE (09:26)
[2019-08-03] MEDS ORDERED: MORPHINE SULFATE 5 MG/ML VIAL IV PRN (10:30)
[2019-08-03] MEDS ORDERED: FENTANYL CITRATE/PF 100MCG/2 ML INJ ONE ×2 (10:38→14:24)
[2019-08-03] MEDS ORDERED: METOCLOPRAMIDE HCL 10 MG/2ML VIAL ONE (10:41)
[2019-08-03] MEDS ORDERED: PROMETHAZINE HCL (IM) 25 MG/ML VIAL ONE (10:48)
--- NOTE | 2019-08-03 12:35 | NUR ---
Pt arrived back from OR. Easy to arouse, lethargic due to medication. IV patent, IV fluids being administered at this time. C/O pain to abd/ surgical sites. 4 trochar sites covered with bandages, CDI. Call light within reach and bed in lowest position.
[2019-08-03] MEDS: MORPHINE SULFATE INJ 4 MG/ML INJ 1ML IV PRN ×3 (12:58→22:42)
[2019-08-03] MEDS: DEXTROSE 5%/0.45% SOD CHL 1,000 ML IV SCH ×2 (12:58→22:47)
--- NOTE | 2019-08-03 13:13 | Operative Report ---
DATE OF PROCEDURE: 08/03/2019 SURGEON: Jamarcus Gibson MD PREOPERATIVE DIAGNOSIS: Chronic cholecystitis. POSTOPERATIVE DIAGNOSIS: Chronic cholecystitis. PROCEDURES: Diagnostic laparoscopy, laparoscopic cholecystectomy. SPORTS ATHLETIC TRAINER: None. ANESTHESIA: General endotracheal. INDICATIONS AND FINDINGS: The patient is a 43-year-old female with persistent right upper quadrant abdominal pain for several weeks. Workup revealed sludge in the gallbladder with thickening of the gallbladder wall seen on CT scan. At surgery, the gallbladder was distended slightly and mildly edematous. Liver and stomach appeared normal. Lower abdomen appeared normal. Appendix was normal. Pelvic organs were normal. Bowel was seen, all appeared normal. TECHNIQUE: After adequate general endotracheal anesthesia, the patient in supine position, the abdomen was prepped and draped in sterile fashion with ChloraPrep solution. Skin in the umbilicus was infiltrated with 0.5% Marcaine. Incision made in the umbilicus. Abdominal wall was elevated and Veress needle was introduced. Pneumoperitoneum was then created. A 10 mm trocar and cannula was then passed through the umbilical wound. Laparoscopic camera was introduced. Initial laparoscopy revealed the gallbladder to be distended and mildly edematous. Liver, stomach, and lower abdomen, all appeared normal. A 10 mm trocar and cannula was placed in epigastrium, two 5 mm trocars and cannulas were placed in the right upper quadrant, these were placed under direct vision. The lower abdomen was examined first. The cecum appeared normal. Appendix appeared normal. Small bowel was examined, appeared normal. There was no free fluid. The pelvic organs, all appeared normal. The fundus of the gallbladder was then grasped, retracted superiorly. Neck of the gallbladder was grasped, retracted laterally. Peritoneum over the neck of the gallbladder was incised. The gallbladder cystic duct junction was dissected free. Cystic artery was also dissected free. The neck of the gallbladder completely dissected free. Cystic artery was divided between hemoclips close to the gallbladder. Cystic duct was dissected free completely, was also divided between hemoclips with three clips being left on the common bile duct side. There was a posterior branch of cystic artery, which was also divided between hemoclips. The gallbladder was dissected free from the liver using scissors and electrocautery. Once it was entirely free, it was placed into an Endopouch and brought out through the epigastric cannula. There were no stones palpable. Gallbladder bed was inspected for hemostasis, which was seen to be adequate. It was irrigated with saline. All fluid aspirated, inspected once again for hemostasis, which was seen to be adequate. Instruments and cannulas were then removed. Pneumoperitoneum was evacuated. Wounds were then closed. Fascia in the umbilical and epigastric wound closed with 0 Vicryl. Skin to all wounds closed with 4-0 Vicryl in subcuticular fashion. Dermabond and sterile dressing were applied to each wound. The patient tolerated the procedure well. Estimated blood loss was 10 mL. There were no complications. All counts were correct and the patient was taken to the recovery room in satisfactory condition. MD DALILA Daniel/ESTRELLAL /[id number] cc: Bib Simpson MD
[2019-08-03] MEDS ORDERED: MIDAZOLAM HCL 2 MG/2 ML VIAL ONE (14:24)
[2019-08-03] MEDS: ONDANSETRON HCL INJ 2MG/ML 2ML 2 MG/ML VIAL IV PRN ×2 (16:03→22:42)
[2019-08-03] MEDS ORDERED: ROCURONIUM BROMIDE 10 MG/ML 5ML VIAL ONE (18:11)
[2019-08-03] MEDS ORDERED: PROPOFOL IV EMULSION 10 MG/ML 20 ML VIAL ONE (18:11)
[2019-08-03] MEDS ORDERED: GLYCOPYRROLATE INJ 1MG/ 5 ML SYR ONE (18:11)
[2019-08-03] MEDS ORDERED: CEFOXITIN SOD 1 GM VIAL ONE (18:11)
[2019-08-03] MEDS ORDERED: LABETALOL HCL 5 MG/ML 20ML VIAL ONE (18:11)
[2019-08-03] MEDS ORDERED: LIDOCAINE HCL 2% LOCAL INJ 5 ML SDV VIAL INJ ONE (18:11)
[2019-08-03] MEDS ORDERED: DEXAMETHASONE SOD PHOS INJ 4 MG/ML VIAL ONE (18:11)
[2019-08-03] MEDS ORDERED: ONDANSETRON HCL INJ 2MG/ML 2ML 2 MG/ML VIAL ONE (18:11)
[2019-08-03] MEDS ORDERED: NEOSTIGMINE 5 MG/5ML SYR ONE (18:11)
[2019-08-03] MEDS ORDERED: SEVOFLURANE INHAL SOLN 250 ML PEN BTL ONE (18:11)
[2019-08-04] VITALS: BP 101/54
[2019-08-04] MEDS: CEFOXITIN 1GM/ D5W 50ML 50 ML IV SCH ×2 (02:48→15:29)
[2019-08-04 04:00] VITALS: BP 114/56
[2019-08-04 06:06] LABS: BASOPHILS % 0.1 % (0.0-1.0); HEMATOCRIT 31.7 % (34.2-44.1); HEMOGLOBIN 10.7 g/dL (12.0-16.0); LYMPHOCYTES # (AUTO) 1.5 (1.0-3.2); MEAN CORPUSCULAR HEMOGLOBIN 29.1 pg (28-32); MEAN CORPUSCULAR HGB CONC 33.8 g/dL (31-35); MEAN CORPUSCULAR VOLUME 86.1 fL (81-99); MONOCYTES # (AUTO) 0.8 (0.2-0.8); MONOCYTES % 7.8 % (4.4-11.3); NEUTROPHILS # (AUTO) 7.5 (2.1-6.9); NEUTROPHILS % 76.5 % (38.7-80.0); PLATELET COUNT 313 x10e3/uL (140-360); RED BLOOD COUNT 3.68 x10e6/uL (3.6-5.1); RED CELL DISTRIBUTION WIDTH 14.1 % (11.7-14.4)
[2019-08-04] MEDS: ONDANSETRON HCL INJ 2MG/ML 2ML 2 MG/ML VIAL IV PRN (06:11)
[2019-08-04] MEDS: MORPHINE SULFATE INJ 4 MG/ML INJ 1ML IV PRN (06:11)
[2019-08-04] MEDS: DEXTROSE 5%/0.45% SOD CHL 1,000 ML IV SCH (06:22)
[2019-08-04 06:28] LABS: ANION GAP 11.1 mmol/L (8-16); BLOOD UREA NITROGEN 11 mg/dL (7-26); BUN/CREATININE RATIO 14 (6-25); CALCIUM 9.4 mg/dL (8.4-10.2); CARBON DIOXIDE 26 mmol/L (22-29); CHLORIDE 107 mmol/L (98-107); CREATININE, SERUM 0.79 mg/dL (0.57-1.11); EST GLOMERULAR FILTRATION RATE > 60 ML/MIN (60-); GLUCOSE 118 mg/dL (74-118); POTASSIUM 4.1 mmol/L (3.5-5.1); SODIUM 140 mmol/L (136-145)
--- NOTE | 2019-08-04 06:37 | NUR ---
report given to day nurse. patient is resting comfortably in bed. bed is in lowest position and call light is within reach.
--- NOTE | 2019-08-04 07:10 | NUR ---
CALLED DR. LONG (COVERING FOR Jus LAGOS) LEFT A MESSAGE WITH CALL BACK NUMBER AND INFORMATION REGARDING PATIENT'S READINESS FOR DISCHARGE.
[2019-08-04 07:51] VITALS: BP 115/70
--- NOTE | 2019-08-04 08:29 | NUR ---
Dr. Strickland aware of discharge orders. States " I'll be there this afternoon to discharge patient. "
[2019-08-04] MEDS: CELECOXIB 200 MG CAP PO SCH ×2 (08:48→15:29)
[2019-08-04] MEDS: PANTOPRAZOLE 40 MG 10ML VIAL IV SCH (08:49)
[2019-08-04 08:51] VITALS: BP 115/70
--- NOTE | 2019-08-04 08:59 | NUR ---
Educated on safety precautions. Refuses yellow socks
[2019-08-04] MEDS: HYDROCODONE/APAP 5MG-325MG TAB PO PRN ×2 (09:34→16:50)
[2019-08-04] MEDS ORDERED: ULTRACET TABLE1 EACH PO (10:48)
[2019-08-04 12:19] VITALS: BP 108/60
[2019-08-04 15:53] VITALS: BP 110/58
--- NOTE | 2019-08-04 16:57 | NUR ---
Trochar bandaids removed and cleaned with normal saline as ordered. Patient States "Just remove dressing. I will shower tonight". Patient refuses dressing change. No drainage noted. Educated of signs and symptoms of infection. Voiced understanding.
--- NOTE | 2019-08-04 17:08 | NUR ---
Right AC IV discontinued. No signs of infiltration noted. 2x2 gauze and tape placed.Refused wheelchair. Accompanied by Dago PAREDES and sister to personal car. AAOX4 to time, person, place, situation. Respirations even and unlabored. Discharge instructions, rx, and all personal belongings taken with patient.
--- NOTE | 2019-08-05 05:01 | Discharge Summary ---
FINAL DISCHARGE DIAGNOSES: 1. Status post laparoscopic cholecystectomy due to underlying acute cholecystitis. 2. Abdominal pain secondary to acute cholecystitis. 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 PHYSICAL EXAMINATION: VITAL SIGNS: Temperature 97.8, pulse 68, respiratory rate is 18, blood pressure 110/58, pulse ox 98% on room air. LAB FINDINGS: Show white count is 9.7, hemoglobin 10.7, hematocrit 32, and platelets of 313. Coagulation; PT 11, INR 0.82, PTT 29. Chemistry; sodium 140, potassium 4.1, chloride 107, bicarb 26, anion gap of 11, BUN is 11, creatinine 0.79, glucose is 118, calcium 9.4. LFTs within normal range. Alkaline phosphatase 100, total protein 7.7, albumin 4, lipase is 43, amylase 64. Urinalysis was found to be negative. MICROBIOLOGY: None. IMAGING STUDIES: None on this admission. HOSPITAL COURSE: This is a 43-year-old female, who apparently was just recently discharged after having some abdominal pain and also biliary colic, comes into the emergency room with similar symptoms of abdominal pain and was treated for acute cholecystitis. The patient underwent laparoscopic cholecystectomy performed by General Surgery, Dr. Gibson. The patient did well postoperatively with no issues. Her abdominal pain all resolved. Nausea and vomiting resolved. She was tolerating diet well with no complaints. She was cleared for discharge by General Surgery. On discharge, the patient was doing well, back to normal baseline with no other issues. She was ambulating with no complications or any issues and tolerating diet well. On the day of discharge, vital signs were stable, labs reviewed and stable. The patient is seen and evaluated, examined thoroughly on the day of discharge. No other complaints. The patient verbalized understanding and agrees to plan of care to follow up accordingly as an outpatient with the primary care physician in 1 week and General Surgery in 1 to 2 weeks' time. The patient was cleared for discharge by General Surgery. MEDICATIONS: See med reconciliation form. DISPOSITION: To home. CONDITION: Stable. DIET: Heart healthy. In the event of any worsening symptoms, the patient advised to come back to the emergency room for further evaluation. Discharge summary took greater than 35 minutes. MD CURLY Tamayo/MORENO /[id number]
== END 2019-08-04 17:09 | disposition home or self-care (01) | DRG 419 ==
LOC: ER 13:07 → ERHOLD 14:20 → IMCU 17:23 → OBSVTOIN 08-03 08:30
PROVIDERS: ADMIT Internal Medicine; ATTEND Internal Medicine
PROC: 0FT44ZZ Resection of Gallbladder, Percutaneous Endoscopic Approach (ICD-10-PCS; principal; 2019-08-03 09:30)
DX: K80.12 Calculus of gallbladder with acute and chronic cholecystitis without obstruction (principal); Z88.5 Allergy status to narcotic agent; Z82.49 Family history of ischemic heart disease and other diseases of the circulatory system; F90.9 Attention-deficit hyperactivity disorder, unspecified type
CPT/HCPCS: 36415; 80048; 80053; 81001; 81025; 82150; 82248; 83690; 85025; 85610; 85730; 88304; 99284; G0378; J0694; J1100; J1885; J2001; J2250; J2270; J2405; J2550; J2765; J3010; J7030

== ENCOUNTER 2019-09-08 05:04 | Emergency (ER) | payer BC ==
[~2019-09-08] VITALS: Ht 170.2 cm; Wt 105.7 kg
[~2019-09-08 05:04] MED LIST changes: +ULTRACET TABLE1 EACH PO
[2019-09-08] MEDS ORDERED: KETOROLAC TROMETHAMINE 60 MG/2 ML VIAL IM ONE (05:15)
[2019-09-08 05:26] VITALS: BP 118/74
--- NOTE | 2019-09-08 08:44 | Diagnostic Imaging Report ---
Frontal and lateral views of the chest. HISTORY: Chest pain with inspiration COMPARISON: CT of the chest July 31, 2019, chest radiograph July 30, 2019. DISCUSSION: Lungs: The lungs are well inflated. No evidence of a consolidative pneumonia or pulmonary alveolar edema. Pleura: No pleural effusion or pneumothorax. Heart and mediastinum: The cardiomediastinal silhouette appear(s) unremarkable. Bones and soft tissues: Probable cholecystectomy clips. IMPRESSION: No acute radiographic abnormality. Signed by: Dr. Jerod Carter D.O., M.M.M. on 09/08/2019 8:41 AM
== END 2019-09-08 06:44 | disposition home or self-care (01) ==
LOC: ER 05:04
DX: R09.1 Pleurisy (principal); F90.9 Attention-deficit hyperactivity disorder, unspecified type
CPT/HCPCS: 71046; 93005; 99283; J1885

== ENCOUNTER 2019-12-22 14:22 | Emergency (ER) | payer BC, OTHER ==
[~2019-12-22] VITALS: Ht 170.2 cm; Wt 105.7 kg
[2019-12-22] MEDS ORDERED: ALBUTEROL SULF 0.083% NEB SOLN 3 ML NEB NEB STA (14:32)
[2019-12-22] MEDS ORDERED: IPRATROPIUM BROMIDE 0.02% 2.5 ML NEB NEB STA (14:32)
[2019-12-22] MEDS ORDERED: SODIUM CHLORIDE 0.9% 1000ML 1,000 ML IV SCH (14:32)
[2019-12-22] MEDS ORDERED: METHYLPREDNISOLONE SOD SUCC 125 MG/2ML VIAL IV ONE (14:45)
[2019-12-22] MEDS ORDERED: ONDANSETRON HCL INJ 2MG/ML 2ML 2 MG/ML VIAL IV PRN (14:45)
[2019-12-22] MEDS ORDERED: ACETAMINOPHEN 325 MG TAB PO ONE (14:45)
[2019-12-22] MEDS ORDERED: CEFTRIAXONE SOD 1 GM/NS 50 ML 50 ML IV ONE (14:45)
[2019-12-22 14:50] LABS: BASOPHILS # (AUTO) 0.1 (0.0-0.1); BASOPHILS % 0.8 % (0.0-1.0); EOSINOPHILS # (AUTO) 0.4 (0.0-0.4); EOSINOPHILS % 6.9 % (0.0-6.0); HEMATOCRIT 40.9 % (34.2-44.1); HEMOGLOBIN 13.9 g/dL (12.0-16.0); LYMPHOCYTES # (AUTO) 2.7 (1.0-3.2); LYMPHOCYTES % 42.8 % (18.0-39.1); MEAN CORPUSCULAR HEMOGLOBIN 28.7 pg (28-32); MEAN CORPUSCULAR VOLUME 84.3 fL (81-99); MONOCYTES # (AUTO) 0.5 (0.2-0.8); MONOCYTES % 7.5 % (4.4-11.3); NEUTROPHILS # (AUTO) 2.6 (2.1-6.9); NEUTROPHILS % 41.7 % (38.7-80.0); PLATELET COUNT 416 x10e3/uL (140-360); RED BLOOD COUNT 4.85 x10e6/uL (3.6-5.1); RED CELL DISTRIBUTION WIDTH 14.1 % (11.7-14.4)
[2019-12-22] MEDS ORDERED: IBUPROFEN 200 MG TAB PO ONE (15:30)
[2019-12-22 15:38] LABS: ALANINE AMINOTRANSFERASE 249 IU/L (0-55); ALBUMIN 4.2 g/dL (3.5-5.0); ALBUMIN/GLOBULIN RATIO 1.2 (0.8-2.0); ALKALINE PHOSPHATASE 120 IU/L (40-150); BLOOD UREA NITROGEN 15 mg/dL (7-26); BUN/CREATININE RATIO 20 (6-25); CALCIUM 9.9 mg/dL (8.4-10.2); CARBON DIOXIDE 24 mmol/L (22-29); CHLORIDE 104 mmol/L (98-107); CREATININE, SERUM 0.74 mg/dL (0.57-1.11); EST GLOMERULAR FILTRATION RATE > 60 ML/MIN (60-); GLUCOSE 104 mg/dL (74-118); SODIUM 141 mmol/L (136-145)
--- NOTE | 2019-12-22 15:43 | Diagnostic Imaging Report ---
EXAMINATION: CHEST 3VIEWS INDICATION: ^cough ^[id number] ^1450 COMPARISON: 09/08/2019 FINDINGS: PA and lateral views TUBES and LINES: None. LUNGS: Lungs are well inflated. There is no evidence of pneumonia or pulmonary edema. PLEURA: No pleural effusion or pneumothorax. HEART AND MEDIASTINUM: The cardiomediastinal silhouette is unremarkable. BONES AND SOFT TISSUES: No acute osseous lesion. Soft tissues are unremarkable. UPPER ABDOMEN: No free air under the diaphragm. IMPRESSION: No acute thoracic abnormality. Signed by: Jh Jin MD on 12/22/2019 3:41 PM
--- NOTE | 2019-12-22 17:38 | Diagnostic Imaging Report ---
EXAM: CT Chest WITH contrast 12/22/2019 4:08 PM INDICATION: ^PE PROTOCOL COMPARISON: CT chest dated 07/31/2019. TECHNIQUE: Chest was scanned utilizing a multidetector helical scanner from the lung apex through the level of the adrenal glands after administration of IV contrast. Coronal and sagittal reformations were obtained. IV CONTRAST: 100 mL of Isovue-370 ORAL CONTRAST: None COMPLICATIONS: None RADIATION DOSE: Total DLP: 576.71 mGy*cm Estimated effective dose: (DLP x 0.015 x size factor) mSv CTDIvol has been reviewed. It is below the limits set by the Radiation Protocol Committee (RPC). FINDINGS: LINES/ TUBES: None. LUNGS AND AIRWAYS: Mild dependent atelectasis is seen posterior lungs. Otherwise, lungs are unremarkable. Airways are normal. PLEURA: The pleural spaces are clear. HEART AND MEDIASTINUM: The thyroid gland is normal. No mediastinal, hilar or axillary lymphadenopathy. The heart is normal in size. There is no pericardial effusion. The thoracic aorta and pulmonary arteries are unremarkable. UPPER ABDOMEN: Unremarkable BONES: No acute findings SOFT TISSUES: Unremarkable. IMPRESSION: No pulmonary embolus. Signed by: Jh Jin MD on 12/22/2019 5:35 PM
[2019-12-22 17:51] VITALS: BP 117/78
[2019-12-22] MEDS ORDERED: IOPAMIDOL 370 MG/ML 200 ML INFUS..BTL INJ ONE (18:15)
[2019-12-22] MEDS ORDERED: SODIUM CHLORIDE 0.9% 50ML 50 ML ONE (18:15)
== END 2019-12-22 17:56 | disposition home or self-care (01) ==
LOC: ER 14:22
DX: R50.9 Fever, unspecified (principal); R05 Cough; J20.9 Acute bronchitis, unspecified
CPT/HCPCS: 36415; 71046; 71260; 80053; 81025; 85025; 85379; 87400; 99284; J0696; J2405; J2930; J7030; Q9967

== ENCOUNTER 2020-02-19 20:22 | Inpatient (IN) | payer OTHER ==
[~2020-02-19] VITALS: Ht 170.2 cm; Wt 103.1 kg
[~2020-02-19 20:22] MED LIST changes: -VYVANSE20 MG; +VYVANSE20 MG PO
[2020-02-19] MEDS ORDERED: ALBUTEROL SULF 0.083% NEB SOLN 3 ML NEB NEB STA (20:38)
[2020-02-19] MEDS ORDERED: ASPIRIN 81 MG CHEW TAB PO ONE (20:45)
[2020-02-19] MEDS ORDERED: METHYLPREDNISOLONE SOD SUCC 125 MG/2ML VIAL IV ONE (20:45)
[2020-02-19] MEDS ORDERED: ACETAMINOPHEN 325 MG TAB PO ONE (20:45)
[2020-02-19] MEDS ORDERED: ACETAMINOPHEN 325 MG TAB ONE (20:57)
[2020-02-19] MEDS ORDERED: SODIUM CHLORIDE 0.9% 1000ML 1,000 ML ONE (20:59)
[2020-02-19] MEDS ORDERED: PIPER-TAZ 3.375 GM 50 ML IV ONE (21:00)
[2020-02-19] MEDS ORDERED: ACETAMINOPHEN 325 MG TAB PO STA (21:05)
[2020-02-19] MEDS ORDERED: SODIUM CHLORIDE 0.9% 1000ML 1,000 ML IV STA (21:05)
[2020-02-19 21:09] LABS: BASOPHILS # (AUTO) 0.1 (0.0-0.1); BASOPHILS % 0.8 % (0.0-1.0); EOSINOPHILS # (AUTO) 0.9 (0.0-0.4); EOSINOPHILS % 8.1 % (0.0-6.0); HEMATOCRIT 40.2 % (34.2-44.1); HEMOGLOBIN 13.9 g/dL (12.0-16.0); LYMPHOCYTES # (AUTO) 4.3 (1.0-3.2); LYMPHOCYTES % 40.3 % (18.0-39.1); MEAN CORPUSCULAR HEMOGLOBIN 29.3 pg (28-32); MEAN CORPUSCULAR HGB CONC 34.6 g/dL (31-35); MEAN CORPUSCULAR VOLUME 84.8 fL (81-99); MONOCYTES # (AUTO) 0.7 (0.2-0.8); MONOCYTES % 6.1 % (4.4-11.3); NEUTROPHILS # (AUTO) 4.7 (2.1-6.9); NEUTROPHILS % 44.2 % (38.7-80.0); PLATELET COUNT 413 x10e3/uL (140-360); RED BLOOD COUNT 4.74 x10e6/uL (3.6-5.1); RED CELL DISTRIBUTION WIDTH 14.4 % (11.7-14.4)
[2020-02-19 21:20] LABS: STREPTOCOCCUS GRP A ANTIGEN NEGATIVE (NEGATIVE)
[2020-02-19 21:27] LABS: ALANINE AMINOTRANSFERASE 20 IU/L (0-55); ALBUMIN 4.3 g/dL (3.5-5.0); ALBUMIN/GLOBULIN RATIO 1.2 (0.8-2.0); ALKALINE PHOSPHATASE 97 IU/L (40-150); ANION GAP 15.1 mmol/L (8-16); BLOOD UREA NITROGEN 10 mg/dL (7-26); BUN/CREATININE RATIO 9 (6-25); CALCIUM 9.7 mg/dL (8.4-10.2); CARBON DIOXIDE 22 mmol/L (22-29); CHLORIDE 107 mmol/L (98-107); CREATINE KINASE 128 IU/L (29-168); CREATININE, SERUM 1.07 mg/dL (0.57-1.11); EST GLOMERULAR FILTRATION RATE 56 ML/MIN (60-); GLUCOSE 106 mg/dL (74-118); POTASSIUM 4.1 mmol/L (3.5-5.1); SODIUM 140 mmol/L (136-145)
[2020-02-19 21:29] LABS: INFLUENZAE A&B ANTIGEN (RAPID) NEGATIVE (NEGATIVE)
--- NOTE | 2020-02-19 21:30 | Diagnostic Imaging Report ---
EXAMINATION: CHEST SINGLE (PORTABLE) COMPARISON: Chest x-ray 12/22/2019 INDICATION: Cough, shortness of breath, recent diagnosis of bronchitis ^ERMD ORDER ^[id number] ^2107 ^Y DISCUSSION: Frontal view of the chest obtained at 2114 hours. HEART AND MEDIASTINUM: The cardiomediastinal silhouette is unremarkable. LINES: None. LUNGS: The lungs are well inflated and clear. No pneumonia or pulmonary edema. PLEURA: No pleural effusion or pneumothorax. BONES AND SOFT TISSUES: No focal osseous lesion. The soft tissues are normal. IMPRESSION: No acute cardiopulmonary disease. Signed by: Dr. Sarah Paul MD on 02/19/2020 9:26 PM
[2020-02-19] MEDS ORDERED: ALBUTEROL/IPRATROPIUM 3 ML NEB NEB ONE (21:45)
--- NOTE | 2020-02-19 21:45 | NUR ---
RT called for breathing treatment.
--- NOTE | 2020-02-19 22:28 | NUR ---
Patient coughing less at this time.
--- NOTE | 2020-02-19 22:47 | NUR ---
Repeat lactic acid sent to lab
[2020-02-19] MEDS ORDERED: ALBUTEROL/IPRATROPIUM 3 ML NEB NEB STA (22:56)
[2020-02-19] MEDS ORDERED: ALBUTEROL SULF 0.083% NEB SOLN 3 ML NEB NEB PRN (23:30)
[2020-02-19] MEDS: METHYLPREDNISOLONE SOD SUCC 40 MG/ML VIAL 1ML IV SCH (23:53)
[2020-02-20] VITALS (10 sets, daily range): BP systolic 135–159; BP diastolic 73–87
[2020-02-20] MEDS ORDERED: SODIUM CHLORIDE 0.9% 1000ML 1,000 ML ONE (00:08)
[2020-02-20] MEDS: BENZONATATE 100 MG CAP PO PRN (00:11)
[2020-02-20] MEDS: SODIUM CHLORIDE 0.9% 1000ML 1,000 ML IV SCH ×3 (00:11→21:41)
--- NOTE | 2020-02-20 01:08 | Diagnostic Imaging Report ---
CT chest without enhancement CPT code: 17908 INDICATION: Cough, shortness of breath, recent bronchitis TECHNIQUE: Thin collimation axial images obtained from the thoracic inlet to the level of the diaphragm without intravenous contrast. Dose reduction techniques used: Automated exposure control, adjustment of the mAs and/or kVp according to patient size, standardized low-dose protocol, and/or iterative reconstruction technique. RADIATION DOSE: Total DLP: 513.85 mGy*cm Estimated effective dose: (DLP x 0.015 x size factor) mSv CTDIvol has been reviewed. It is below the limits set by the Radiation Protocol Committee (RPC). COMPARISON: CTA chest 12/22/2019, chest x-ray 02/19/2020. CHEST FINDINGS: Lymph nodes: No enlarged axillary, supraclavicular, mediastinal, or hilar lymph nodes. Thyroid: Visualized portions are normal. Mediastinum: The heart is normal in size. No pericardial effusion. The esophagus is normal. Lungs: Right: No mass or infiltrate. No air trapping. Left: No mass or infiltrate. No air trapping. Airways: Clear. Central bronchial mulligan are mildly thickened. No bronchiectasis. Pleura: No pleural effusion or pleural based mass. ABDOMEN FINDINGS: The gallbladder is absent. Visualized portions of the upper abdomen demonstrate no evidence of mass or infiltrate. Bones: No focal osseous lesions. Soft tissues: Unremarkable. IMPRESSION: No pulmonary infiltrates or areas of air trapping. Mild central bronchial wall thickening may be secondary to bronchitis or reactive airways disease. Signed by: Dr. Sarah Paul MD on 02/20/2020 1:04 AM
--- NOTE | 2020-02-20 01:50 | NUR ---
Covid swab and respiratory virus panel sent to lab
--- NOTE | 2020-02-20 02:10 | NUR ---
Pt brought to rm 176 via WC with face mask escorted by ER nurse. Dressed in hospital gown. Alert to name, hospital, situation, and diagnosis: URI. Pleasant. Repetitive dry coughing. Gait steady. Denies dysuria. Last BM 02/17. c/o mild sore throat d/t coughing. Skin flushed, warm, dry, and intact. Oriented to room, educated to use phone to call nurse or for need of assistance. Bed low and locked. Will continue to monitor.
[2020-02-20] MEDS ORDERED: M.V.I. ADULT10 ML (02:49)
--- NOTE | 2020-02-20 03:22 | NUR ---
lactic acid drawn and sent to lab
[2020-02-20 03:41] LABS: BASOPHILS % 0.3 % (0.0-1.0); EOSINOPHILS % 0.1 % (0.0-6.0); HEMATOCRIT 38.5 % (34.2-44.1); LYMPHOCYTES # (AUTO) 0.9 (1.0-3.2); LYMPHOCYTES % 8.1 % (18.0-39.1); MEAN CORPUSCULAR HEMOGLOBIN 28.8 pg (28-32); MEAN CORPUSCULAR HGB CONC 33.8 g/dL (31-35); MEAN CORPUSCULAR VOLUME 85.2 fL (81-99); MONOCYTES # (AUTO) 0.1 (0.2-0.8); NEUTROPHILS # (AUTO) 10.3 (2.1-6.9); NEUTROPHILS % 89.5 % (38.7-80.0); RED BLOOD COUNT 4.52 x10e6/uL (3.6-5.1); RED CELL DISTRIBUTION WIDTH 14.6 % (11.7-14.4)
[2020-02-20 03:48] LABS: PLATELET COUNT 378 x10e3/uL (140-360)
[2020-02-20] MEDS: ACETAMINOPHEN/CODEINE ELIX 120-12 MG/5 ML UDC PO PRN ×2 (03:58→21:41)
[2020-02-20] MEDS: METHYLPREDNISOLONE SOD SUCC 40 MG/ML VIAL 1ML IV SCH ×3 (06:00→20:00)
[2020-02-20] MEDS ORDERED: PIPER-TAZ 3.375 GM 50 ML IV SCH (06:00)
--- NOTE | 2020-02-20 06:43 | NUR ---
Pt resting in bed watching phones, HOB 75 degrees, mild coughing noted. No acute distress noted.
--- NOTE | 2020-02-20 07:01 | NUR ---
received change of shift report from PM nurse; pt awake, alert, oriented X3, no signs of distress. mild coughing noted. pt requesting cough medicine when Dr. De La Cruz makes his rounds. per PM nurse, Dr. De La Cruz was paged regarding request for orders. awaiting callback.
[2020-02-20] MEDS: ALBUTEROL SULFATE HFA 8GM INHALATION AEROSOL INH PRN (09:04)
[2020-02-20] MEDS: GUAIFENESIN/CODEINE 10 ML CUP PO PRN ×3 (09:26→17:58)
[2020-02-20] MEDS: AZITHROMYCIN 250 MG TAB PO SCH (09:26)
[2020-02-20] MEDS: LORATADINE 10 MG TAB PO SCH (13:55)
--- NOTE | 2020-02-20 16:29 | NUR ---
pt c/o anxiety and trouble sleeping and requesting medicine; paged Dr. De La Cruz. awaiting callback.
--- NOTE | 2020-02-20 16:43 | NUR ---
received orders from Dr. De La Cruz; will administer ordered dose of Xanax once verified by pharmacy. will continue to monitor.
--- NOTE | 2020-02-20 17:04 | Diagnostic Imaging Report ---
EXAM: CHEST SINGLE (PORTABLE) DATE: 02/20/2020 7:00 AM INDICATION: Bronchitis COMPARISON: CT chest from 02/19/2020, chest radiograph from 02/19/2020 FINDINGS: The trachea is midline. The lungs are symmetrically expanded without evidence for large focal consolidation, pneumothorax, or significant pleural effusion. The cardiomediastinal silhouette is stable in appearance. No acute osseous abnormality is identified. IMPRESSION: No acute cardiopulmonary process or significant interval change identified from 02/19/2020. Signed by: Dr. Chilo Crouch MD on 02/20/2020 5:00 PM
[2020-02-20] MEDS: ALPRAZOLAM 0.25 MG TAB PO PRN (17:58)
--- NOTE | 2020-02-20 18:25 | NUR ---
Dr. Galdamez at pt's bedside; ordered 1 gram Rocephin IV daily.
--- NOTE | 2020-02-20 19:05 | Consultation ---
DATE OF CONSULTATION: REASON FOR CONSULTATION: Cough. HISTORY OF PRESENT ILLNESS: This patient is a very pleasant 44-year-old female, who has history of asthma. She was in the [facility] few weeks ago. This year, she got sick 3 times with worsening cough condition. She does not have a stud driver to see. The patient comes in with worsening shortness of breath and cough. Since we are amid an outbreak of COVID-19, the patient is being admitted. The patient's main concern is just cough at the present time and being very uncomfortable. LABORATORY DATA: White count 11.54, hemoglobin 13, hematocrit 38, her platelet of 378. Her lactic acid is 2.3. Respiratory panel is still pending. The influenza is negative. PHYSICAL EXAMINATION: GENERAL: She is currently alert, oriented, does not seem to be in acute distress. VITAL SIGNS: Stable. Currently afebrile. HEENT: She is not icteric. NECK: Supple. CHEST: Clear. HEART: S1 and S2. No murmur. ABDOMEN: Soft. RESPIRATORY: She did have bilateral wheezing. IMPRESSION: Asthmatic attack, worsening. Agree with steroid. Agree with checking for COVID-19. Discussed with the patient. We will put her on isolation. Discussed with the ER physician. Agree with supportive care. We will give Rocephin 1 mg daily as a possibility of bronchitis. Further recommendations to follow. MD BROOKE Jett/MORENO /[id number]
[2020-02-20] MEDS: CEFTRIAXONE SOD 1 GM/NS 50 ML 50 ML IV SCH (19:30)
--- NOTE | 2020-02-20 19:30 | NUR ---
Received report from morning nurse. Pt mild cough, no distress noted. Call light within reach. Bed low and locked.
--- NOTE | 2020-02-20 20:54 | NUR ---
Pt with continuous coughing, c/o not sleeping x2 days. Spoke with Dr. De La Cruz ordered Restoril 15mg prn for insomnia.
[2020-02-20] MEDS ORDERED: TEMAZEPAM 7.5 MG CAP PO PRN (21:00)
[2020-02-21] VITALS (9 sets, daily range): BP systolic 121–150; BP diastolic 61–78
[2020-02-21] MEDS: GUAIFENESIN/CODEINE 10 ML CUP PO PRN ×4 (00:40→22:24)
--- NOTE | 2020-02-21 00:40 | NUR ---
Pt continuos coughing, admin prn Robitussin with codeine. offered ice chips.
[2020-02-21] MEDS: METHYLPREDNISOLONE SOD SUCC 40 MG/ML VIAL 1ML IV SCH ×4 (02:00→19:33)
[2020-02-21] MEDS: BENZONATATE 100 MG CAP PO PRN ×2 (04:15→19:33)
--- NOTE | 2020-02-21 04:15 | NUR ---
Pt continuos coughing, admin prn Tessalon Perles. Accepted warm chicken broth.
--- NOTE | 2020-02-21 07:00 | NUR ---
received change of shift report from PM nurse. pt sitting up in bed, awake, alert, oriented, ambulatory. pt still c/o mild cough. IV patent, all safety measures in place. pt denies any pain or other complaints at this time. will continue to monitor.
[2020-02-21 07:58] LABS: BASOPHILS # (AUTO) 0.1 (0.0-0.1); BASOPHILS % 0.2 % (0.0-1.0); HEMATOCRIT 36.4 % (34.2-44.1); HEMOGLOBIN 12.3 g/dL (12.0-16.0); LYMPHOCYTES # (AUTO) 1.4 (1.0-3.2); LYMPHOCYTES % 6.8 % (18.0-39.1); MEAN CORPUSCULAR HEMOGLOBIN 29.1 pg (28-32); MEAN CORPUSCULAR HGB CONC 33.8 g/dL (31-35); MEAN CORPUSCULAR VOLUME 86.3 fL (81-99); MONOCYTES # (AUTO) 0.7 (0.2-0.8); MONOCYTES % 3.2 % (4.4-11.3); NEUTROPHILS # (AUTO) 17.7 (2.1-6.9); NEUTROPHILS % 88.1 % (38.7-80.0); PLATELET COUNT 372 x10e3/uL (140-360); RED BLOOD COUNT 4.22 x10e6/uL (3.6-5.1); RED CELL DISTRIBUTION WIDTH 15.4 % (11.7-14.4)
[2020-02-21] MEDS: SODIUM CHLORIDE 0.9% 1000ML 1,000 ML IV SCH ×2 (08:19→19:18)
[2020-02-21] MEDS: LORATADINE 10 MG TAB PO SCH (08:20)
[2020-02-21] MEDS: AZITHROMYCIN 250 MG TAB PO SCH (08:20)
[2020-02-21 08:28] LABS: ALANINE AMINOTRANSFERASE 65 IU/L (0-55); ALBUMIN 3.6 g/dL (3.5-5.0); ALBUMIN/GLOBULIN RATIO 1.2 (0.8-2.0); ALKALINE PHOSPHATASE 88 IU/L (40-150); ANION GAP 11.9 mmol/L (8-16); BLOOD UREA NITROGEN 11 mg/dL (7-26); BUN/CREATININE RATIO 16 (6-25); CALCIUM 9.3 mg/dL (8.4-10.2); CARBON DIOXIDE 23 mmol/L (22-29); CHLORIDE 110 mmol/L (98-107); CREATININE, SERUM 0.67 mg/dL (0.57-1.11); EST GLOMERULAR FILTRATION RATE > 60 ML/MIN (60-); GLUCOSE 133 mg/dL (74-118); POTASSIUM 3.9 mmol/L (3.5-5.1); SODIUM 141 mmol/L (136-145)
[2020-02-21] MEDS: ALBUTEROL SULFATE HFA 8GM INHALATION AEROSOL INH PRN ×3 (10:00→22:02)
--- NOTE | 2020-02-21 14:47 | Progress Note ---
DATE: SUBJECTIVE: Ms. Ferrari, who is currently lying in bed comfortably. There are no complaints. She said her breathing is better. Her cough is better. But she had really a rough night. Her cultures are still pending. Her white count today is 20, but she is on steroid. Platelets 372. Her respiratory panel, all came back negative, was still waiting on the COVID-19, which is still pending. REVIEW OF SYSTEMS: HEENT: Negative. PULMONARY: As above. shortness of breath. Otherwise, there is no fever. PHYSICAL EXAMINATION: GENERAL: She is currently alert, oriented, does not seem to be in acute distress. VITAL SIGNS: Stable, currently afebrile. HEENT: She is not icteric. NECK: Supple. CHEST: Clear anteriorly. HEART: S1 and S2. No murmur. ABDOMEN: Soft. IMPRESSION: Asthma exacerbation, concerned about COVID-19. We will continue the same if she is symptomatic. If continues to improved, could be discharged home tomorrow with the steroid and albuterol inhaler. MD BROOKE Jett/MORENO /[id number]
--- NOTE | 2020-02-21 16:11 | NUR ---
Dr. De La Cruz at pt's bedside; pt in stable condition, no complaints at this time.
[2020-02-21] MEDS: CEFTRIAXONE SOD 1 GM/NS 50 ML 50 ML IV SCH (19:33)
[2020-02-21] MEDS: ALPRAZOLAM 0.25 MG TAB PO PRN (20:15)
--- NOTE | 2020-02-21 22:30 | NUR ---
PATIENT RESTLESS UNABLE TO SLEEP R/T COUGHING, PT DENIES SOB, REMAINS AFEBRILE, REQUESTING PRN INSOMNIA MEDICATION, REQUEST CARRIED OUT
[2020-02-21] MEDS: TEMAZEPAM 15 MG CAP PO PRN (22:45)
[2020-02-22] VITALS (11 sets, daily range): BP systolic 140–169; BP diastolic 65–118
[2020-02-22] MEDS: METHYLPREDNISOLONE SOD SUCC 40 MG/ML VIAL 1ML IV SCH ×4 (00:59→19:23)
[2020-02-22] MEDS: SODIUM CHLORIDE 0.9% 1000ML 1,000 ML IV SCH ×3 (02:19→21:17)
[2020-02-22] MEDS: ALBUTEROL SULFATE HFA 8GM INHALATION AEROSOL INH PRN (02:19)
[2020-02-22] MEDS: GUAIFENESIN/CODEINE 10 ML CUP PO PRN ×4 (03:29→21:25)
[2020-02-22] MEDS: BENZONATATE 100 MG CAP PO PRN ×3 (03:29→17:18)
--- NOTE | 2020-02-22 03:36 | NUR ---
BSSR RECEIVED FROM MARIA ELENA PAREDES, PATIENT REMAIN ON CONTACT ISOLATION R/O COVID-19, RESULTS PENDING, PATIENT AWAKE ALERT, INTERMITTENT COUGHING NOTED, PATIENT REPORTS NAUSEA DURING COUGHING EPISODES, PRN MEDICATION GIVEN, PRN INHALER AT BEDSIDE, PATIENT INSTRUCTED TO USE q4H PER MD ORDER, PT ACKNOWLEDGE UNDERSTANDING WITH TEACHBACK, IV #20g RAC PATENT, PATIENT AMBULATORY GAIT STEADY WILL CONTINUE TO MONITOR Addendum: 02/22/20 at 0340 by MAKAYLA SANCHEZ RN @1915 BSSR RECEIVED FROM MARIA ELENA PAREDES, PATIENT REMAIN ON CONTACT ISOLATION R/O COVID-19, RESULTS PENDING, PATIENT AWAKE ALERT, INTERMITTENT COUGHING NOTED, PATIENT REPORTS NAUSEA DURING COUGHING EPISODES, PRN MEDICATION GIVEN, PRN INHALER AT BEDSIDE, PATIENT INSTRUCTED TO USE q4H PER MD ORDER, PT ACKNOWLEDGE UNDERSTANDING WITH TEACHBACK, IV #20g RAC PATENT, PATIENT AMBULATORY GAIT STEADY WILL CONTINUE TO MONITOR
--- NOTE | 2020-02-22 07:00 | NUR ---
Received patient lying in bed with eyes open. Respiration even and unlabored. Noted intermittent non-productive coughing. Denies pain. Afebrile with Oral temperature of 96.3F. Call light in reach.
[2020-02-22] MEDS: LORATADINE 10 MG TAB PO SCH (07:28)
[2020-02-22] MEDS: AZITHROMYCIN 250 MG TAB PO SCH (09:19)
--- NOTE | 2020-02-22 11:00 | NUR ---
Notified Dr. De La Cruz about the negative Covid-19 test result. States he is going to see the patient today. Verbal order of Neb treatment Duoneb Q4H scheduled given.
[2020-02-22] MEDS ORDERED: ALBUTEROL/IPRATROPIUM 3 ML NEB ONE (11:27)
--- NOTE | 2020-02-22 14:57 | NUR ---
Sent a voice message to Dr. Coleman's voicemail for consultation.
[2020-02-22] MEDS ORDERED: BENZOCAINE 20% SPR 60 ML CAN MT PRN (15:00)
[2020-02-22] MEDS: ALBUTEROL/IPRATROPIUM 3 ML NEB NEB SCH ×2 (15:06→19:22)
--- NOTE | 2020-02-22 15:50 | NUR ---
Verbal ordered given by Dr. Galdamez to discontinue Zithromax antibiotic. Addendum: 02/22/20 at 1621 by Karma Larson RN Verbal ordered given by Dr. Galdamez to discontinue Rocephin antibiotic.
[2020-02-22] MEDS: CHLORASEPTIC SPRAY 177 ML BTL MM PRN ×2 (16:24→21:25)
--- NOTE | 2020-02-22 16:35 | NUR ---
Report given to LENA Parada to transfer patient to room 208 on droplet precaution as ordered by manager housekeeping.
--- NOTE | 2020-02-22 17:00 | Diagnostic Imaging Report ---
EXAM: CT Chest WITHOUT contrast INDICATION: BRONCHITIS COMPARISON: CT chest dated the 12/24/2019. TECHNIQUE: Chest was scanned utilizing a multidetector helical scanner from the lung apex through the level of the adrenal glands without administration of IV contrast. Absence of intravenous contrast decreases sensitivity for detection of lymphadenopathy and vascular pathology. Coronal and sagittal reformations were obtained. Routine protocol was performed. IV CONTRAST: None COMPLICATIONS: None RADIATION DOSE: Total DLP: 454.64 mGy*cm Estimated effective dose: (DLP x 0.014 x size factor) mSv CTDIvol has been reviewed. It is below the limits set by the Radiation Protocol Committee (RPC). FINDINGS: LINES/ TUBES: None. LUNGS AND AIRWAYS: The lungs are unremarkable. The central airways are unremarkable. No definite evidence of bronchial wall thickening. PLEURA: The pleural spaces are clear. HEART AND MEDIASTINUM: The thyroid gland is normal. No mediastinal, hilar or axillary lymphadenopathy. The heart is normal in size.. There is no pericardial effusion. UPPER ABDOMEN: Unremarkable. BONES: The visualized bony thorax is within normal limits. SOFT TISSUES: Unremarkable. IMPRESSION: No acute finding in the chest. Signed by: Jh Jin MD on 02/22/2020 4:57 PM
--- NOTE | 2020-02-22 18:50 | NUR ---
Report given to shift lab technician. Respiration even and unlabored without SOB. Call light in reach.
--- NOTE | 2020-02-22 20:25 | NUR ---
pulmonary [id number] dictated subacute cough, recurrent allergies possible asthma possible gerd possible JOSE ALFREDO serum eosinophilia mild thanks
[2020-02-22] MEDS ORDERED: MONTELUKAST SODIUM 10 MG TAB PO SCH (21:00)
[2020-02-22] MEDS: TEMAZEPAM 15 MG CAP PO PRN (21:25)
[2020-02-22] MEDS: ALPRAZOLAM 0.25 MG TAB PO PRN (21:25)
[2020-02-22] MEDS: FAMOTIDINE 20 MG TAB PO SCH (21:26)
--- NOTE | 2020-02-22 23:07 | Consultation ---
DATE OF CONSULTATION: 02/22/2020 Pulmonary Medicine Consult REFERRING PHYSICIAN: Dr. Cornelius De La Cruz. REASON FOR REFERRAL: Cough, chronic and intermittent. HISTORY OF PRESENT ILLNESS: Ms. Ferrari is a pleasant 44-year-old female with significant cough. The patient presented to [facility] on [facility] 19, 2020 at night. The patient had reports of cough. Cough began about 2-3 weeks previous. However, she has a pattern of yearly coughing multiple times a year. She claims to have underlying comorbidities. This time there was a pattern of worsening. It hurt so much to cough she came to the hospital on February 18 after about 2 weeks of having these symptoms. So far, PCR viral panel was negative, flu antigen negative, coronavirus COVID-19 is negative. The patient had a CT chest that was negative on the lungs. The patient has history of significant allergies. No definite asthma history until this year she was told. She was born normally. No clinical overt GERD. No obstructive sleep apnea evaluation in the past. She has taken Proventil and Zyrtec/Claritin with good subjective response, but incomplete response. She had tried Singulair in the past with a great response. PAST MEDICAL HISTORY: Allergies, possible asthma. MEDICATIONS: Medication list reviewed per record. ALLERGIES: HYDROMORPHONE. SOCIAL HISTORY: No smoking, no drinking, and no drugs. The patient lives with her 10-year-old daughter and daughter is healthy. 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 FAMILY HISTORY: Noncontributory. REVIEW OF SYSTEMS: GENERAL: No weight changes. OPHTHALMOLOGIC: No floaters. ENT: No throat cancer. PULMONARY: No hemoptysis. CARDIOVASCULAR: No CO. GI: No constipation. : No bloody urine. DERMATOLOGIC: No rash. NEUROLOGIC: No syncope. IMMUNOLOGIC: No lupus. OBJECTIVE: VITAL SIGNS: Afebrile, vital signs noted and reviewed per the chart record. GENERAL: In no acute distress, alert and calm. HEENT: Normocephalic, atraumatic. NECK: Supple. Throat midline. LUNGS: Bilateral air entry, limited evaluation due to intermittent coughing. No heavy wheezing pressure. CARDIOVASCULAR: S1, S2. No murmurs, rubs, or gallops. ABDOMEN: Soft, nontender, obese. EXTREMITIES: No clubbing, no cyanosis, no edema. INTEGUMENT: No rash. No purpura. LABORATORY DATA: 20 white count, 36 hematocrit, 372 platelets. 3.9 potassium, 11 BUN, creatinine 0.67. Lactic acid recently was 2.3 ongoing. Eosinophils on presentation was 8.1% with absolute eosinophiles of 900 per high-power field. LFTs include AST and ALT 63 and 65 nearly elevated with other normal LFTs. Albumin is 3.6. IMPRESSION AND PLAN: 1. Subacute cough, recurrent. 2. Overt allergies. 3. Possible asthma. 4. Possible obstructive sleep apnea, wide neck with elevated BMI of 35.6. 5. Possible GERD, subclinical. 6. Mild lactic acidosis. 7. Serum eosinophilia on presentation. 8. Leukocytosis. Recommend some steroids intravenous to be continued. Transition to inhaled corticosteroids. The patient recommended for Singulair. Continue antihistamine such as Claritin. The patient will need consideration for IgE level. Reasonable to treat empirically as GERD. The patient recommended for outpatient sleep study. Thank you very much, Dr. De La Cruz for this consult. Please call for questions. MD GOKUL Richter/MORENO /[id number]
[2020-02-23] VITALS (10 sets, daily range): BP systolic 120–165; BP diastolic 69–79
[2020-02-23] MEDS: METHYLPREDNISOLONE SOD SUCC 40 MG/ML VIAL 1ML IV SCH ×2 (01:31→08:44)
[2020-02-23] MEDS: CHLORASEPTIC SPRAY 177 ML BTL MM PRN (01:32)
[2020-02-23] MEDS: ALBUTEROL/IPRATROPIUM 3 ML NEB NEB SCH ×4 (01:37→11:15)
[2020-02-23] MEDS: GUAIFENESIN/CODEINE 10 ML CUP PO PRN ×2 (01:38→07:10)
[2020-02-23] MEDS: BENZONATATE 100 MG CAP PO PRN ×2 (01:38→07:10)
--- NOTE | 2020-02-23 07:13 | NUR ---
BSSR GIVEN TO LENA Geller, PATIENT AWAKE ALERT, NO DISTRESS, SEEN COUGHING REQUESTING COUGH MEDICATION, WILL BE ADMINISTERED BY LENA LIMON, CALL LIGHT WITHIN REACH, REMAIN ON ISOLATION, DROPLET PRECAUTION, POSSIBLE DISCHARGE HOME TODAY
--- NOTE | 2020-02-23 07:30 | NUR ---
Received patient lying in bed with eyes open. Respiration even and unlabored without SOB. Call light in reach.
[2020-02-23] MEDS: FAMOTIDINE 20 MG TAB PO SCH (08:44)
[2020-02-23] MEDS: SODIUM CHLORIDE 0.9% 1000ML 1,000 ML IV SCH (08:44)
[2020-02-23] MEDS: LORATADINE 10 MG TAB PO SCH (08:44)
[2020-02-23] MEDS: ACETAMINOPHEN/CODEINE ELIX 120-12 MG/5 ML UDC PO PRN (11:18)
[2020-02-23] MEDS ORDERED: ALBUTEROL0.63 MG/3 INH (11:54)
[2020-02-23] MEDS ORDERED: SINGULAIR10 MG (11:55)
--- NOTE | 2020-02-23 12:39 | NUR ---
PIV to right AC discontinued, Catheter tip intact, no bleeding noted. Discharge education given. Prescription home medication given. Verbalized understanding to resume quarantine for 2 more weeks and wearing mask at all times.
--- NOTE | 2020-02-23 12:47 | NUR ---
patient is transported via wheelchair to private vehicle with all personal belongings taken.
--- NOTE | 2020-02-23 13:07 | NUR ---
[id number] [facility] 02/22/2020
--- NOTE | 2020-02-23 17:05 | Progress Note ---
DATE: SUBJECTIVE: Ms. Ferrari is feeling much better today. Her breathing is better. REVIEW OF SYSTEMS: Otherwise is unremarkable. HEENT: Negative. PULMONARY: Negative. CARDIAC: Negative. PHYSICAL EXAMINATION: GENERAL: She is currently alert. VITAL SIGNS: Stable, currently afebrile. HEENT: She is not icteric. NECK: Supple. CHEST: Clear bilateral. COR: S1 and S2. No murmur. ABDOMEN: Soft. Bowel sounds present. No tenderness. EXTREMITIES: No edema. IMPRESSION: 1. Asthma attack, getting better. 2. COVID-19 came back negative. Still discussed with the patient to stay safe, social distance, face mask, preferably something made at the house to wash her surfaces, to see me in 2 weeks. I answered all her questions. The patient will be discharged home. No antibiotic. Inhalers as per Pulmonary. MD BROOKE Jett/MORENO /[id number]
--- NOTE | 2020-02-24 12:31 | Discharge Summary ---
FINAL DIAGNOSES: Severe seasonal bronchitis with intractable cough and hemoptysis. CONSULTANTS: 1. Dr. Galdamez, Infectious Disease. 2. Dr. Coleman, Pulmonary. PROCEDURES/STUDIES PERFORMED: CT of the chest, which was negative. HISTORY: Per H and P. HOSPITAL COURSE: Given her travel history to [facility], the patient was tested for COVID, which came back to be negative. The patient was getting IV fluid and IV steroids around the clock. Finally, with addition of Singulair, her cough started to get better. Chest CT was negative. Empirically, the patient also received antibiotics. The patient was seen and examined today. CONDITION ON DISCHARGE: Improved. DISCHARGE MEDICATIONS: Please see medication reconciliation form. MD AHMET Zhou/MORENO /[id number]
== END 2020-02-23 13:00 | disposition home or self-care (01) | DRG 202 ==
LOC: ER 20:22 → ERHOLD 23:17 → IMCU 02-20 02:28 → OBSVTOIN 02-21 06:56
PROVIDERS: ADMIT Internal Medicine; ATTEND Internal Medicine
DX: J45.901 Unspecified asthma with (acute) exacerbation (principal); E87.2 Acidosis; G47.33 Obstructive sleep apnea (adult) (pediatric); D72.1 Eosinophilia; K21.9 Gastro-esophageal reflux disease without esophagitis
CPT/HCPCS: 36415; 71045; 71250; 80053; 82550; 82553; 83518; 83605; 83880; 84484; 84702; 85025; 87040; 87070; 87400; 87633; 87635; 94640; 96361; 99284; G0378; J0696; J2543; J2920; J2930; J7030

== ENCOUNTER 2021-04-22 17:33 | Emergency (ER) | payer OTHER ==
[~2021-04-22] VITALS: Ht 170.2 cm; Wt 96.6 kg
[~2021-04-22 17:33] MED LIST changes: +ALBUTEROL0.63 MG/3 INH; +M.V.I. ADULT10 ML; +SINGULAIR10 MG
[2021-04-22] MEDS ORDERED: TETRAHYDROZOLINE HCL(OPTH) 30 ML BOTTLE OP STA (17:45)
[2021-04-22] MEDS ORDERED: FLUORESCEIN SOD(OPTH) 1 MG STRP OP STA (17:45)
[2021-04-22] MEDS ORDERED: TETRACAINE HCL 0.5% OPTH SOLN 4 ML BTL ONE (17:57)
[2021-04-22] MEDS ORDERED: FLUORESCEIN SOD(OPTH) 1 MG STRP ONE (17:57)
[2021-04-22] MEDS ORDERED: KETOROLAC TROMETHAMINE 60 MG/2 ML VIAL IM NR (18:45)
[2021-04-22] MEDS ORDERED: PREDNISONE20 MG PO (19:03)
[2021-04-22] MEDS ORDERED: FIORICET 50-301 EACH PO (19:03)
== END 2021-04-22 19:21 | disposition home or self-care (01) ==
LOC: ER 18:23
DX: G44.009 Cluster headache syndrome, unspecified, not intractable (principal); J45.909 Unspecified asthma, uncomplicated; F90.9 Attention-deficit hyperactivity disorder, unspecified type
CPT/HCPCS: 70450; 99283; J1885

== ENCOUNTER 2021-10-05 10:33 | Emergency (ER) | payer OTHER ==
[~2021-10-05] VITALS: Ht 170.2 cm; Wt 99.8 kg
[~2021-10-05 10:33] MED LIST changes: +FIORICET 50-301 EACH PO; +PREDNISONE20 MG PO
[2021-10-05] MEDS ORDERED: SODIUM CHLORIDE 0.9% 1000ML 1,000 ML IV STA (10:49)
[2021-10-05] MEDS ORDERED: KETOROLAC TROMETHAMINE 30 MG/ML VIAL IV NR (11:00)
[2021-10-05] MEDS ORDERED: METOCLOPRAMIDE HCL 10 MG/2ML VIAL IV NR (11:00)
[2021-10-05] MEDS ORDERED: DIPHENHYDRAMINE HCL INJ 50 MG/ML VIAL IV NR (11:00)
[2021-10-05 11:07] LABS: BASOPHILS % 0.4 % (0.0-1.0); EOSINOPHILS # (AUTO) 0.1 (0.0-0.4); EOSINOPHILS % 0.6 % (0.0-6.0); HEMATOCRIT 40.2 % (34.2-44.1); HEMOGLOBIN 13.5 g/dL (12.0-16.0); LYMPHOCYTES # (AUTO) 0.8 (1.0-3.2); LYMPHOCYTES % 9.8 % (18.0-39.1); MEAN CORPUSCULAR HEMOGLOBIN 29.1 pg (28-32); MEAN CORPUSCULAR HGB CONC 33.6 g/dL (31-35); MEAN CORPUSCULAR VOLUME 86.6 fL (81-99); MONOCYTES # (AUTO) 0.4 (0.2-0.8); MONOCYTES % 4.8 % (4.4-11.3); NEUTROPHILS % 83.8 % (38.7-80.0); PLATELET COUNT 337 x10e3/uL (140-360); RED BLOOD COUNT 4.64 x10e6/uL (3.6-5.1); RED CELL DISTRIBUTION WIDTH 14.5 % (11.7-14.4)
[2021-10-05 11:13] LABS: CLARITY,URINE CLEAR (CLEAR); COLOR,URINE YELLOW (YELLOW); KETONES,URINE TRACE (NEGATIVE); LEUKOCYTE ESTERASE ,URINE NEGATIVE (NEGATIVE); NITRITE,URINE NEGATIVE (NEGATIVE); PROTEIN,URINE DIPSTICK NEGATIVE (NEGATIVE); URINE UROBILINOGEN 0.2 mg/dL (0.2 - 1)
[2021-10-05 11:25] LABS: BACTERIA,URINE FEW /HPF; EPITHELIAL CELLS,URINE MODERATE /LPF; MUCUS,URINE FEW (RARE); RBC,URINE 0-5 /HPF (0-5); WBC,URINE (MAN) 0-5 /HPF (0-5)
[2021-10-05 11:37] LABS: ALBUMIN 4.3 g/dL (3.5-5.0); ALBUMIN/GLOBULIN RATIO 1.2 (0.8-2.0); ANION GAP 14.1 mmol/L (8-16); CALCIUM 9.5 mg/dL (8.4-10.2); CREATININE, SERUM 0.75 mg/dL (0.57-1.11); MAGNESIUM 1.9 MG/DL (1.3-2.1); POTASSIUM 4.1 mmol/L (3.5-5.1)
[2021-10-05 12:19] LABS: STREPTOCOCCUS GRP A ANTIGEN NEGATIVE (NEGATIVE)
[2021-10-05 12:41] LABS: INFLUENZAE A&B ANTIGEN (RAPID) NEGATIVE (NEGATIVE)
== END 2021-10-05 14:03 | disposition home or self-care (01) ==
LOC: ER 10:42
DX: R50.9 Fever, unspecified (principal); B34.9 Viral infection, unspecified; R11.2 Nausea with vomiting, unspecified; F90.9 Attention-deficit hyperactivity disorder, unspecified type; Z20.822 Contact with and (suspected) exposure to COVID-19
CPT/HCPCS: 36415; 70450; 71045; 80053; 81001; 83518; 83735; 85025; 87070; 87086; 87400; 99284; J1200; J1885; J2765; J7030; U0002

== ENCOUNTER → 2022-04-07 | Emergency (ER) | payer OTHER ==
[~2022-04-07] VITALS: Ht 170.2 cm; Wt 99.8 kg
[~2022-04-07] MED LIST changes: +SODIUM CHLORIDE 0.9% 1000ML 1,000 ML IV STA
[2022-04-07 09:15] LABS: BASOPHILS % 0.4 % (0.0-1.0); EOSINOPHILS % 0.3 % (0.0-6.0); HEMOGLOBIN 14.8 g/dL (12.0-16.0); LYMPHOCYTES # (AUTO) 1.8 (1.0-3.2); LYMPHOCYTES % 25.2 % (18.0-39.1); MEAN CORPUSCULAR HEMOGLOBIN 29.4 pg (28-32); MEAN CORPUSCULAR HGB CONC 33.6 g/dL (31-35); MEAN CORPUSCULAR VOLUME 87.3 fL (81-99); MONOCYTES # (AUTO) 0.3 (0.2-0.8); MONOCYTES % 4.3 % (4.4-11.3); PLATELET COUNT 422 x10e3/uL (140-360); RED BLOOD COUNT 5.04 x10e6/uL (3.6-5.1); RED CELL DISTRIBUTION WIDTH 14.1 % (11.7-14.4)
[2022-04-07 09:34] LABS: INR 0.74; PROTHROMBIN TIME 11.2 seconds (11.9-14.5)
[2022-04-07 09:35] LABS: PARTIAL THROMBOPLASTIN TIME 26.4 seconds (23.8-35.5)
[2022-04-07 09:39] LABS: ALANINE AMINOTRANSFERASE 21 IU/L (0-55); ALBUMIN 4.3 g/dL (3.5-5.0); ALKALINE PHOSPHATASE 82 IU/L (40-150); ANION GAP 14.5 mmol/L (8-16); BLOOD UREA NITROGEN 24 mg/dL (7-26); BUN/CREATININE RATIO 29 (6-25); CALCIUM 10.3 mg/dL (8.4-10.2); CARBON DIOXIDE 25 mmol/L (22-29); CHLORIDE 104 mmol/L (98-107); CREATINE KINASE 30 IU/L (29-168); CREATININE, SERUM 0.84 mg/dL (0.57-1.11); EST GLOMERULAR FILTRATION RATE 74 ML/MIN (60-); GLUCOSE 110 mg/dL (74-118); MAGNESIUM 2.3 MG/DL (1.3-2.1); POTASSIUM 4.5 mmol/L (3.5-5.1); SODIUM 139 mmol/L (136-145)
[2022-04-07 09:58] LABS: THYROID STIMULATING HORMONE 1.436 uIU/mL (0.350-4.940)
[2022-04-07 11:29] VITALS: BP 133/83
== END | disposition home or self-care (01) ==
LOC: ER 08:15
DX: R07.89 Other chest pain (principal); J45.909 Unspecified asthma, uncomplicated; F90.9 Attention-deficit hyperactivity disorder, unspecified type; Z20.822 Contact with and (suspected) exposure to COVID-19
CPT/HCPCS: 36415; 71045; 80053; 82550; 82553; 83735; 83880; 84443; 84484; 85025; 85379; 85610; 85730; 93005; 99283; J7030; U0002

== ENCOUNTER 2022-10-20 06:45 | Emergency (ER) | payer OTHER ==
[~2022-10-20] VITALS: Ht 170.2 cm; Wt 99.8 kg
[~2022-10-20 06:45] MED LIST changes: -SODIUM CHLORIDE 0.9% 1000ML 1,000 ML IV STA
[2022-10-20] MEDS ORDERED: KETOROLAC TROMETHAMINE 30 MG/ML VIAL IV STA (07:06)
[2022-10-20] MEDS ORDERED: SODIUM CHLORIDE 0.9% 1000ML 1,000 ML IV STA ×2 (07:06→08:57)
[2022-10-20] MEDS ORDERED: DIAZEPAM 5 MG TAB PO ONE (07:15)
[2022-10-20] MEDS ORDERED: DIPHENHYDRAMINE HCL INJ 50 MG/ML VIAL IV ONE (07:15)
[2022-10-20] MEDS ORDERED: METOCLOPRAMIDE HCL 10 MG/2ML VIAL IV ONE (07:15)
[2022-10-20 07:31] LABS: BASOPHILS # (AUTO) 0.1 (0.0-0.1); BASOPHILS % 0.8 % (0.0-1.0); EOSINOPHILS % 0.5 % (0.0-6.0); HEMATOCRIT 39.2 % (34.2-44.1); HEMOGLOBIN 12.7 g/dL (12.0-16.0); LYMPHOCYTES # (AUTO) 3.6 (1.0-3.2); LYMPHOCYTES % 48.6 % (18.0-39.1); MEAN CORPUSCULAR HEMOGLOBIN 28.6 pg (28-32); MEAN CORPUSCULAR HGB CONC 32.4 g/dL (31-35); MEAN CORPUSCULAR VOLUME 88.3 fL (81-99); MONOCYTES # (AUTO) 0.5 (0.2-0.8); MONOCYTES % 6.6 % (4.4-11.3); NEUTROPHILS % 40.8 % (38.7-80.0); PLATELET COUNT 357 x10e3/uL (140-360); RED BLOOD COUNT 4.44 x10e6/uL (3.6-5.1); RED CELL DISTRIBUTION WIDTH 13.9 % (11.7-14.4)
[2022-10-20 07:49] LABS: ALBUMIN 3.7 g/dL (3.5-5.0); ALBUMIN/GLOBULIN RATIO 1.1 (0.8-2.0); ANION GAP 12.9 mmol/L (8-16); CALCIUM 8.6 mg/dL (8.4-10.2); CREATININE, SERUM 0.83 mg/dL (0.57-1.11); MAGNESIUM 1.8 MG/DL (1.3-2.1); POTASSIUM 3.9 mmol/L (3.5-5.1)
[2022-10-20 07:51] LABS: INR 0.94; PROTHROMBIN TIME 12.8 seconds (11.9-14.5)
[2022-10-20 07:52] LABS: PARTIAL THROMBOPLASTIN TIME 26.9 seconds (23.8-35.5)
[2022-10-20] MEDS ORDERED: VALIUM2 MG PO (08:33)
[2022-10-20] MEDS ORDERED: SODIUM CHLORIDE 0.9% 1000ML 1,000 ML ONE (09:18)
[2022-10-20 10:14] VITALS: BP 101/67
[2022-10-20 11:31] LABS: LYMPHOCYTES % (MANUAL) 45 % (19-48); MONOCYTES % (MANUAL) 10 % (3.4-9.0); MYELOCYTES % (MANUAL) 3 % (0-0); NEUTROPHILS % (MANUAL) 40 % (40-74); PLATELET ESTIMATE ADEQUATE; PLATELET MORPHOLOGY COMMENT NORMAL; RBC MORPHOLOGY COMMENT NORMAL
== END 2022-10-20 09:00 | disposition home or self-care (01) ==
LOC: ER 06:51
DX: R50.9 Fever, unspecified (principal); B34.9 Viral infection, unspecified; R51.9 Headache, unspecified; Z20.822 Contact with and (suspected) exposure to COVID-19
CPT/HCPCS: 36415; 70450; 80053; 83735; 85025; 85610; 85730; 99284; J1200; J1885; J2765; J7030; U0002

== ENCOUNTER 2022-12-27 15:32 | Emergency (ER) | payer OTHER ==
[~2022-12-27] VITALS: Ht 170.2 cm; Wt 99.8 kg
[~2022-12-27 15:32] MED LIST changes: +VALIUM2 MG PO
[2022-12-27] MEDS ORDERED: ASPIRIN 81 MG CHEW TAB PO ONE (16:00)
[2022-12-27 16:10] LABS: BASOPHILS % 0.3 % (0.0-1.0); EOSINOPHILS # (AUTO) 0.1 (0.0-0.4); HEMATOCRIT 41.4 % (34.2-44.1); LYMPHOCYTES # (AUTO) 2.4 (1.0-3.2); LYMPHOCYTES % 36.8 % (18.0-39.1); MEAN CORPUSCULAR HEMOGLOBIN 28.9 pg (28-32); MEAN CORPUSCULAR HGB CONC 33.8 g/dL (31-35); MEAN CORPUSCULAR VOLUME 85.4 fL (81-99); MONOCYTES # (AUTO) 0.4 (0.2-0.8); MONOCYTES % 6.2 % (4.4-11.3); NEUTROPHILS # (AUTO) 3.5 (2.1-6.9); NEUTROPHILS % 54.4 % (38.7-80.0); PLATELET COUNT 321 x10e3/uL (140-360); RED BLOOD COUNT 4.85 x10e6/uL (3.6-5.1)
[2022-12-27 16:22] LABS: ALANINE AMINOTRANSFERASE 72 IU/L (0-55); ALBUMIN 4.5 g/dL (3.5-5.0); ALBUMIN/GLOBULIN RATIO 1.2 (0.8-2.0); ALKALINE PHOSPHATASE 114 IU/L (40-150); ANION GAP 13.5 mmol/L (8-16); BLOOD UREA NITROGEN 19 mg/dL (7-26); BUN/CREATININE RATIO 25 (6-25); CALCIUM 9.3 mg/dL (8.4-10.2); CARBON DIOXIDE 24 mmol/L (22-29); CHLORIDE 106 mmol/L (98-107); CREATINE KINASE 70 IU/L (29-168); CREATININE, SERUM 0.75 mg/dL (0.57-1.11); GLUCOSE 100 mg/dL (74-118); POTASSIUM 3.5 mmol/L (3.5-5.1); SODIUM 140 mmol/L (136-145)
[2022-12-27] MEDS ORDERED: BELLADONNA ALK/PHENOBARBITAL 5 ML UDC PO ONE (16:45)
[2022-12-27] MEDS ORDERED: MAGNESIUM/ALUMINUM/SIMETHICONE 30 ML UDC PO ONE (16:45)
[2022-12-27] MEDS ORDERED: LIDOCAINE VISC 2% SOLN 15 ML UDC PO ONE (16:45)
[2022-12-27] MEDS ORDERED: PEPCID20 MG PO (17:19)
[2022-12-27] MEDS ORDERED: ONDANSETRON ODT4 MG PO (17:19)
== END 2022-12-27 18:40 | disposition home or self-care (01) ==
LOC: ER 15:53
DX: R07.89 Other chest pain (principal); R53.83 Other fatigue; R11.0 Nausea; J45.909 Unspecified asthma, uncomplicated; F90.9 Attention-deficit hyperactivity disorder, unspecified type; Z20.822 Contact with and (suspected) exposure to COVID-19
CPT/HCPCS: 36415; 71045; 80053; 82550; 82553; 84484; 85025; 93005; 99284; C9113; U0002